=== PATIENT | male | born 1950 | race African-American/Black ===

== ENCOUNTER 2016-09-02 08:36 | Observation (INO) ==
[2016-09-02] MEDS ORDERED: DILTIAZEM 50 MG/10 ML VIAL IV STA (08:49)
[2016-09-02] MEDS ORDERED: ONDANSETRON 4 MG/2 ML VIAL IV STA (08:49)
[2016-09-02] MEDS ORDERED: ASPIRIN 325 MG TABLET PO STA (08:49)
--- NOTE | 2016-09-02 08:55 | Emergency Department Note ---
Arrival - Arrival Chief Complaint: Shortness of Breath Stated Complaint: shortness of breath ED Nursing Triage Note: Brought in per EMS from [facility] with c/o shortness of breath onset "a long time ago". Denies worsening of shortness of breath today. EKG at [facility] reveals A-FIb, patient reports he has recently forgotten to take metoprolol daily. Denies pain or palpitations. Mode of Arrival: Stretcher Limitations: No Limitations Source: Patient Time Seen by Provider: 09/02/16 08:49 - History of Present Illness HPI Narrative: This 66-year-old black male presents with complaints of a funny sensation in his left chest. The patient states that when this occurs it usually means his heart rhythm has gotten away from him and he is correct, presenting to the ER today with atrial fib with rapid ventricular response of 150. The patient is followed by Dr. Quinn and states he has been compliant with his medications; however, after awakening today and getting about he began to feel that sensation in the chest. He has mild shortness of breath and nausea but no dylon vomiting. He likewise has no specific complaint of chest pain and states he has been fine the last several days and again quite compliant with his medication. Currently despite his rhythm he has stable vitals and presents in minimal medical distress. Onset (ago): hour(s) (Patient presents 1 hour post onset of symptoms) Allergies/Adverse Reactions: Allergies Allergy/AdvReac Type Severity Reaction Status Date / Time albuterol Allergy Unknown/Unable Verified 09/02/16 08:44 to obtain finasteride [From Proscar] Allergy Unknown/Unable Verified 09/02/16 08:44 to obtain gabapentin Allergy Unknown/Unable Verified 09/02/16 08:44 to obtain Home Medications: Home Medications Medication Instructions Recorded Confirmed Type Furosemide Tab [Lasix Tab] 40 mg PO DAILY 07/01/15 09/02/16 History HYDROcodone/ACETAMIN 10-325 [[place] 1 tablet PO DAILY PRN 07/01/15 09/02/16 History 10-325] Losartan Potassium 100 mg PO DAILY 07/01/15 09/02/16 History Magnesium Oxide [Magox 400] 1,200 mg PO DAILY 07/01/15 09/02/16 History Potassium Chloride 10 meq PO DAILY 07/01/15 09/02/16 History Acetaminophen Tab [Tylenol Tab] 325 mg PO BID PRN 09/02/16 09/02/16 History Albuterol Inhaler [Proventil 2 puff INH Q4H PRN 09/02/16 09/02/16 History Inhaler] Apixaban [Eliquis] 5 mg PO BID 09/02/16 09/02/16 History Carboxymethylcellulose Sodium 1 drop BOTH EYES QID 09/02/16 09/02/16 History [Refresh Tears] Insulin Aspart Prot/Asp 70/30 45 unit SUBCUT BID 09/02/16 09/02/16 History [NovoLOG Mix 70/30] Lidocaine [Lidocaine 5% Patch] 1 patch TRANSDERM DAILY 09/02/16 09/02/16 History Magnesium Oxide 420 mg PO BEDTIME 09/02/16 09/02/16 History Magnesium Oxide 840 mg PO QAM 09/02/16 09/02/16 History Metoprolol Succinate 50 mg PO DAILY 09/02/16 09/02/16 History Pantoprazole Tab [Protonix Tab] 40 mg PO DAILY 09/02/16 09/02/16 History Pantoprazole Tab [Protonix Tab] 40 mg PO DAILY 09/02/16 09/02/16 History Polyvinyl Alcohol [Artificial 15 ml BOTH EYES QID PRN 09/02/16 09/02/16 History Tears] Triamterene/Hydrochlorothiazid 1 each PO DAILY 09/02/16 09/02/16 History [Triamterene-Hctz 37.5-25 mg Tb] dilTIAZem HCl [Diltiazem ER (24 240 mg PO DAILY 09/02/16 09/02/16 History hr)] Review of System - Review of System 12 point system: reviewed and no additional remarkable complaints except as stated - Review of System Constitutional: Present: as per HPI Respiratory: Present: as per HPI Cardiovascular: Present: as per HPI Gastrointestinal: Present: as per HPI Medical,Surgical,& Family Hx - Medical History Cardio: History of: Cardiac Dysrhythmia (A fib), CHF, CAD, Hypertension Neurology: History of: Peripheral Neuropathy HEENT: History of: Glaucoma Endocrine: History of: Diabetes Mellitus (IDDM), Dyslipidemia Respiratory: History of: COPD, Obstructive Sleep Apnea Gastrointestinal: History of: GERD, Hepatitis (C) Musculoskeletal: History of: Back/Neck Problems, Degenerative Disk Disease - Surgical History Cardiac Surgeries: Sugical HX of: Cardiac Catheterization Abdominal Surgeries: Surgical HX of: Colonoscopy, EGD - Social History Smoking Status: Former smoker Frequency of Alcohol Use: Frequently Type of Drug Use: None Exam Physical Examination: GENERAL: Well developed, well nourished black male in no acute distress. HEENT: Normocephalic. No trauma. Moist mucous membranes. EOMI. PERRLA. ENT NML NECK: Supple. No adenopathy. CARDIAC: Irregular. No murmurs. Heart rate 150 CHEST: Clear to auscultation. No respiratory distress. O2 sat 98% ABDOMEN: Soft. Minimal midepigastric tenderness. Active bowel sounds. EXTREMITIES: No trauma. Normal ROM. No pedal edema. SKIN: No diaphoresis. No rash. NEURO: Alert. Oriented 3. Motor, sensory, vibratory intact. No focal deficits. Vital Signs: Vital Signs Temperature 97.2 F L 09/02/16 08:36 Pulse Rate 95 H 09/02/16 16:00 Respiratory Rate 18 09/02/16 16:00 Blood Pressure 125/78 09/02/16 16:00 O2 Sat by Pulse Oximetry 98 09/02/16 16:00 Course - Consultations Consultation #1: Discussed with Dr. Norris who will come to the ER to evaluate the patient. Consultation #2: Dr. Norris to admit. Results - Labs CBC & BMP: 09/02/16 08:52 09/02/16 08:52 - Impressions EKG: Atrial fibrillation at 150 with normal QRS duration. Nonspecific ST changes but no acute injury pattern noted. - Diagnostic Findings Procedure: Chest x-ray: image reviewed by me, report reviewed by me ( Cardiomegaly basal atelectasis otherwise negative) Disposition Clinical Impression: Atrial fibrillation Case discussed with: patient, patient's family Disposition: Still a Patient Condition: Guarded Time of Disposition: 15:00
[2016-09-02 08:59] LABS: Basophils % 0.4 % (0.0-0.8); Eosinophils % 0.4 % (0.00-10.9); Hemoglobin 14.1 GM/DL (14.0-18.0); Immature Granulocytes % 0.3 %; Immature Granulocytes Absolute 0.03 #; Lymphocytes # 1.2 10*3/uL (1.4-4.0); Lymphocytes % 13.1 % (21.2-54.2); Mean Corpuscular HGB Conc 34.4 GM/DL (32-36); Mean Corpuscular Hemoglobin 32 PG (27-34); Mean Corpuscular Volume 92.6 FL (87-102); Monocytes # 0.6 10*3/uL (0.11-0.8); Monocytes % 6.4 % (1.7-12.7); Neutrophils # 7.4 10*3/uL (1.4-7.4); Neutrophils % 79.4 % (38.7-73.9); Platelet Count 305 T/CUMM (130-400); Red Blood Count 4.43 MC/CUMM (3.8-5.5); Red Cell Distribution Width 14.4 % (9.3-17.3); White Blood Count 9.3 T/CUMM (4-12)
[2016-09-02] MEDS ORDERED: ONDANSETRON 4 MG/2 ML VIAL ONE (09:06)
[2016-09-02] MEDS ORDERED: DILTIAZEM 50 MG/10 ML VIAL IV ONE (09:07)
[2016-09-02] MEDS ORDERED: ASPIRIN 325 MG TABLET ONE (09:07)
--- NOTE | 2016-09-02 09:08 | XRay Report ---
Referring Physician: Shyam Mcmillan Exam: XR chest 1V portable Date: September 02, 2016 at 8:55 AM Reason: Shortness of breath Comparison: Chest one view portable July 01, 2015 Findings: The cardiac silhouette is again enlarged, and there is calcified plaque at the aortic arch. Minimal atelectasis or scarring is seen at both lung bases. No pneumothorax or pleural effusion is identified. No acute osseous process is seen. There may be remote rib fractures bilaterally. Impression: 1. Cardiomegaly. 2. Minimal atelectasis or scarring at the lung bases. PROCEDURE INTERPRETED AT [facility] DEPARTMENT OF RADIOLOGY Final Report Signed by: Dr. Omkar Bonner
[2016-09-02 09:09] LABS: INR 1.1; PT Patient Result 12.2 SECS; Partial Thromboplastin Time 29.6 SECS (0-40)
--- NOTE | 2016-09-02 09:34 | EKG Report ---
Stationary ECG Study [facility] ER Test Date: 09/02/2016 8:41:36 AM Pat Name: ITZEL OKEEFE Department: Room: Gender: M Document Control Specialist: : 1950 Requested by: Shyam Schwarz Order Number: [id number] Reading MD: NATALIE STEIN Intervals [place] Rate: 139 P: 999 ND: 0 QRS: -18 QRSD: 73 T: 51 QT: 275 QTc: 356 Interpretive Statements ATRIAL FIBRILLATION WITH RAPID VENTRICULAR RESPONSE Electronically Signed On 09-04-16 15:44:53 CDT by NATALIE STEIN [email or web address]
[2016-09-02 09:42] LABS: Alanine Aminotransferase 33 U/L (16-61); Albumin 3.3 G/DL (3.4-5.0); Alkaline Phosphatase 97 U/L (45-117); Aspartate Amino Transferase 40 U/L (0-37); Blood Urea Nitrogen 23 MG/DL (7-18); Glucose 247 MG/DL (74-106); Osmolality,Calculated 292.3 MOS/KG (273-304); Sodium 141 MMOL/L (136-145); Total Protein 7.2 G/DL (6.4-8.3); Troponin I Only < 0.015 NG/ML (0.00-0.045)
[2016-09-02 09:50] LABS: Free T4 (Free Thyroxine) 0.83 NG/DL (0.76-1.46); Troponin I Only < 0.015 NG/ML (0.00-0.045)
[2016-09-02 10:58] LABS: Amorphous Crystals,Urine Occasional /HPF (Few); Apearance,Urine Slightly Hazy (Clear); Bilirubin,Urine Negative (Negative); Blood, Urine Negative (Negative); Glucose,Urine (UA) Negative (Negative); Hyaline Casts,Urine 10 /LPF (0-3); Ketones,Urine Negative (Negative); Mucus,Urine Occasional /LPF (Occasional); Nitrite,Urine Negative (Negative); Protein,Urine 30 MG/DL; RBC,Urine 2 /HPF (0-4); Squamous Epithelial Cell,Urine Occasional /HPF (0-10); Urine Color Yellow (Yellow); Urine Specific Gravity 1.009 (1.001-1.035); Urine Urobilinogen < 2.0 EU/DL (0.2-1.0); WBC,Urine 1 /HPF (0-6)
[2016-09-02 11:04] LABS: Barbiturates Screen,Urine Negative (Negative); Benzodiazepines Screen,Urine Negative (Negative); Cannabinoid Screen,Urine Negative (Negative); Opiate Screen,Urine Positive (Negative); Phencyclidine Screen,Urine Negative (Negative)
[2016-09-02] MEDS ORDERED: METOPROLOL TARTRATE 50 MG TABLET PO STA (11:25)
[2016-09-02] MEDS ORDERED: METOPROLOL TARTRATE 50 MG TABLET ONE (11:30)
[2016-09-02] MEDS ORDERED: DOCUSATE SODIUM 100 MG CAPSULE PO PRN (14:32)
[2016-09-02] MEDS ORDERED: BISACODYL 5 MG TABLET PO PRN (14:32)
[2016-09-02] MEDS ORDERED: MORPHINE 2 MG/1 ML SYRINGE IV PRN (14:32)
--- NOTE | 2016-09-02 14:32 | Cardiology History & Physical ---
Assessment and Plan - Time spent with patient Time spent with patient: Greater than 30 minutes (1) Atrial fibrillation with RVR Status: Chronic Assessment and plan: SEE PLAN OF CARE LISTED BELOW Current Visit: No (2) Diabetes mellitus Status: Chronic Assessment and plan: SEE PLAN OF CARE LISTED BELOW Current Visit: No (3) Essential (primary) hypertension Status: Chronic Assessment and plan: SEE PLAN OF CARE LISTED BELOW Current Visit: No (4) CKD (chronic kidney disease) Status: Chronic Assessment and plan: SEE PLAN OF CARE LISTED BELOW Current Visit: No Qualifiers: Chronic kidney disease stage: stage 3 (moderate) Qualified Code(s): N18.3 - Chronic kidney disease, stage 3 (moderate) (5) Alcohol abuse Status: Chronic Assessment and plan: SEE PLAN OF CARE LISTED BELOW Current Visit: No (6) Chronic back pain Status: Chronic Assessment and plan: SEE PLAN OF CARE LISTED BELOW Current Visit: No History of Present Illness Chief complaint: Atiral fibrillation with RVR History of present illness: REPAIR MILLER: DR. JAIME Mr. 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 Risk factors include: hypertension, dyslipidemia, diabetes, obesity,sedentary lifestyle, medication noncompliance. Patient drinks several shots of conrad each day. He last drank last evening. Denies a history of known coronary artery disease, PA. He has a known history of chronic atrial fibrillation for which he takes Eliquis. He tells me he continues to take Eliquis without fail Patient had an appointment to see Dr. Jaime this morning. When he began to walk across the parking lot to get to his appointment, he began to feel his heart "turning upside down" located in the left area of the chest. He denies chest pain, heaviness or tightness. He reports that when he feels that particular type of discomfort, he recognizes that his heart is out of rhythm and going too fast. He feels as if he should be evaluated in the emergency department. Upon arrival, he is noted to be in atrial fibrillation with rapid ventricular response. Heart rate highest noted to be 150s. He is maintained on IV Cardizem 7.5 mg/h and heart rate is vacillating from 80s-120 bpm. He tells me he is continuously in atrial fibrillation. As we were going through his medication bag, he recognized he is not taking Metoprolol. He is not sure why it is not in his bag but notes he has not been taking it. Cardiac biomarkers are negative. Creatinine noted to be 2.2. His has history of CKD. Chest x-ray reveals only minimal atelectasis and scarring at the bases. Of note, patient is trembling. Again, he does drink heavily. We will transition him to telemetry, wean his Cardizem off as we reinitiate his home medications. Hopefully, patient will be discharged tomorrow. Tranxene now and twice daily to prevent delirium tremens. At this point, I will not order an echocardiogram. This may be scheduled outpatient at [facility]. ASSESSMENT/PLAN: 1. CHRONIC ATRIAL FIBRILLATION - wean off IV Cardizem, restart home medications and hopefully patient will be discharged tomorrow. Continue Eliquis. 2. HYPERTENSION - adjust medications accordingly during hospital stay 3. DYSLIPIDEMIA - fasting lipid profile in the morning. Continue lipid- lowering agent. 4. DIABETES - continue current plan of care 5. ALCOHOL USE - will start Tranxene to prevent delirium tremens. Importance of alcohol cessation was discussed for greater than 5 minutes 6. CKD, STAGE III - continue current plan of care. Avoiding ARNOLD-Inhibitor for fear of worsening renal insufficiency. Home Medications Medication Instructions Recorded Confirmed Type Furosemide Tab [Lasix Tab] 40 mg PO DAILY 07/01/15 09/02/16 History HYDROcodone/ACETAMIN 10-325 [[place] 1 tablet PO DAILY PRN 07/01/15 09/02/16 History 10-325] Losartan Potassium 100 mg PO DAILY 07/01/15 09/02/16 History Magnesium Oxide [Magox 400] 1,200 mg PO DAILY 07/01/15 09/02/16 History Potassium Chloride 10 meq PO DAILY 07/01/15 09/02/16 History Acetaminophen Tab [Tylenol Tab] 325 mg PO BID PRN 09/02/16 09/02/16 History Albuterol Inhaler [Proventil 2 puff INH Q4H PRN 09/02/16 09/02/16 History Inhaler] Apixaban [Eliquis] 5 mg PO BID 09/02/16 09/02/16 History Carboxymethylcellulose Sodium 1 drop BOTH EYES QID 09/02/16 09/02/16 History [Refresh Tears] Insulin Aspart Prot/Asp 70/30 45 unit SUBCUT BID 09/02/16 09/02/16 History [NovoLOG Mix 70/30] Lidocaine [Lidocaine 5% Patch] 1 patch TRANSDERM DAILY 09/02/16 09/02/16 History Magnesium Oxide 420 mg PO BEDTIME 09/02/16 09/02/16 History Magnesium Oxide 840 mg PO QAM 09/02/16 09/02/16 History Metoprolol Succinate 50 mg PO DAILY 09/02/16 09/02/16 History Pantoprazole Tab [Protonix Tab] 40 mg PO DAILY 09/02/16 09/02/16 History Pantoprazole Tab [Protonix Tab] 40 mg PO DAILY 09/02/16 09/02/16 History Polyvinyl Alcohol [Artificial 15 ml BOTH EYES QID PRN 09/02/16 09/02/16 History Tears] Triamterene/Hydrochlorothiazid 1 each PO DAILY 09/02/16 09/02/16 History [Triamterene-Hctz 37.5-25 mg Tb] dilTIAZem HCl [Diltiazem ER (24 240 mg PO DAILY 09/02/16 09/02/16 History hr)] Allergies Allergy/AdvReac Type Severity Reaction Status Date / Time albuterol Allergy Unknown/Unable Verified 09/02/16 08:44 to obtain finasteride [From Proscar] Allergy Unknown/Unable Verified 09/02/16 08:44 to obtain gabapentin Allergy Unknown/Unable Verified 09/02/16 08:44 to obtain Review of systems: REVIEW OF SYSTEMS: - Constitutional Constitutional: Absent: syncope, anorexia, night sweats - EENT Eyes: Absent: blurry vision, loss of vision, diplopia Ears: Absent: decreased hearing, ear pain, ear discharge - Cardiovascular Cardiovascular: Denies chest pain with exertion, dyspnea on exertion, edema. Occasional palpitations. Absent: chest pain with deep breath, claudication - Respiratory Respiratory: Denies: ALFARO, cough. Absent: wheezing, hemoptysis, change in phlegm color - Gastrointestinal Gastrointestinal: Denies constipation. Absent: adbominal pain, hematemesis, hematochezia, melena, change in bowel habits, nausea - Genitourinary Genitourinary: Absent: difficulty urinating, dysuria, urinary hesitancy, flank pain - Musculoskeletal Musculoskeletal: Present: back pain Absent: joint swelling, muscle cramps, muscle weakness - Neurological Neurological: Present: normal gait without frequent falls. Absent: dizziness, hemiparesis - Psychiatric Psychiatric: Absent: anxiety, depression, difficulty concentrating - Endocrine Endocrine: Absent: cold intolerance, heat intolerance, polyuria, polyphagia, polydipsia - Hematologic/Lymphatic Hematologic/Lymphatic: Present: easy bruising. Absent: easy bleeding -Integumentary Integumentary: Absent: lesions, rashes, skin breakdown Medical,Surgical,& Family Hx - Medical History Cardio: History of: Cardiac Dysrhythmia (A fib), CHF, CAD, Hypertension Neurology: History of: Peripheral Neuropathy HEENT: History of: Glaucoma Endocrine: History of: Diabetes Mellitus (IDDM), Dyslipidemia Respiratory: History of: COPD, Obstructive Sleep Apnea Gastrointestinal: History of: GERD, Hepatitis (C) Musculoskeletal: History of: Back/Neck Problems, Degenerative Disk Disease - Surgical History Cardiac Surgeries: Sugical HX of: Cardiac Catheterization Abdominal Surgeries: Surgical HX of: Colonoscopy, EGD - Social History Smoking Status: Former smoker Frequency of Alcohol Use: Frequently Type of Drug Use: None Cardiology Physical Exam - Constitutional Vitals: Vital Signs Temp Pulse Resp BP Pulse Ox 97.2 F L 83 18 139/97 100 09/02/16 08:36 09/02/16 13:30 09/02/16 13:30 09/02/16 13:30 09/02/16 13:30 Intake and Output 09/01/16 09/02/16 09/02/16 23:59 07:59 15:59 Intake Total 4 / 4 Output Total 100 / 100 Balance -96 / -96 Intake: IV / Cardizem Inj 125 mg In Ns 100 ml @ 5 MG/HR 5 mls/ hr IV TITRATE CORRY Rx#: [id number] Output: Urine 100 / 100 Other: Voiding Method Urinal # Voids 1 Weight 97.522 kg Patient Weight 09/02/16 23:59 Weight 97.522 kg Exam: General: [Appears well with no apparent distress.] [Pleasant and cooperative. ] [Appears comfortable.] HEENT: [Bilateral arcus noted, normocephalic, atraumatic. Mucous membranes moist. No jaundice noted. Conjunctiva moist and clear, sclerae anicteric] Neck: No JVD/HJR, no thyromegaly or lymphadenopathy noted. No carotid bruit appreciated Cardiac: [Irregularly irregular rhythm, tachycardia rate. [No murmur rub or gallop.] Lungs: [Clear to auscultation without accessory muscle use to assist the respiratory pattern.] Not requiring oxygen Abdomen: Soft, bowel sounds normoactive. Nontender and nondistended. No abdominal bruit or thrill noted. No masses noted. Musculoskeletal: No fluid collection. Decreased range of motion is noted. Extremities: No clubbing, cyanosis noted. [ No edema noted.] Upper extremity pulses 2+. Lower extremity pulses 2+. Capillary refill less than 3 seconds. Skin: No unusual lesions or rashes. No skin breakdown appreciated. Neuro: Awake, alert and oriented 3. Moves all extremities well without hemiparesis or paralysis. Trembling of hands noted. Result/EKG - Labs CBC & BMP: 09/02/16 08:52 09/02/16 08:52 Lab Results: I have reviewed the past 24 hour labs Labs: Laboratory Results - last 24 hr 09/02/16 09/02/16 09/02/16 08:52 08:52 08:52 WBC 9.3 RBC 4.43 Hgb 14.1 Hct 41.0 L MCV 92.6 MCH 32 MCHC 34.4 RDW 14.4 Plt Count 305 MPV 9.0 L Neut % (Auto) 79.4 H Lymph % (Auto) 13.1 L [place] % (Auto) 6.4 Eos % (Auto) 0.4 Baso % (Auto) 0.4 Neut # (Auto) 7.4 Lymph # (Auto) 1.2 L [place] # (Auto) 0.6 Eos # (Auto) 0.0 Baso # (Auto) 0.0 Immature Gran % 0.3 Nucleated RBC % 0.0 Immature Gran # 0.03 Nucleated RBCs # 0.00 INR 1.1 PT Patient/Control Mix 12.2 Circ Anticoag PTT 29.6 Sodium Potassium Chloride Carbon Dioxide Anion Gap BUN Creatinine GFR Calculation BUN/Creatinine Ratio Glucose Calculated Osmolality Calcium Total Bilirubin AST ALT Alkaline Phosphatase Total Creatine Kinase 121 CK-MB (CK-2) 2.3 Troponin I < 0.015 Total Protein Albumin Globulin Albumin/Globulin Ratio Free T4 0.83 TSH 3rd Generation Urine Color Urine Appearance Urine pH Ur Specific [place] Urine Protein Urine Glucose (UA) Urine Ketones Urine Blood Urine Nitrate Urine Bilirubin Urine Urobilinogen Urine Leukocytes Urine RBC Urine WBC Ur Squamous Epith Cells Amorphous Crystals Hyaline Casts Urine Mucus Ur Culture Indicated? Urine Opiates Screen Ur Barbiturates Screen Ur Phencyclidine Scrn U Amphetamine/Methamph U Benzodiazepines Scrn U Cocaine Metab Screen U Cannabinoids Screen 09/02/16 09/02/16 09/02/16 08:52 10:46 10:46 WBC RBC Hgb Hct MCV MCH MCHC RDW Plt Count MPV Neut % (Auto) Lymph % (Auto) [place] % (Auto) Eos % (Auto) Baso % (Auto) Neut # (Auto) Lymph # (Auto) [place] # (Auto) Eos # (Auto) Baso # (Auto) Immature Gran % Nucleated RBC % Immature Gran # Nucleated RBCs # INR PT Patient/Control Mix Circ Anticoag PTT Sodium 141 Potassium 4.0 Chloride 107 Carbon Dioxide 23 Anion Gap 15.0 BUN 23 H Creatinine 2.20 H GFR Calculation 44 BUN/Creatinine Ratio 10.00 Glucose 247 H Calculated Osmolality 292.3 Calcium 9.0 Total Bilirubin 0.40 AST 40 H ALT 33 Alkaline Phosphatase 97 Total Creatine Kinase CK-MB (CK-2) Troponin I < 0.015 Total Protein 7.2 Albumin 3.3 L Globulin 3.9 H Albumin/Globulin Ratio 0.8 L Free T4 TSH 3rd Generation 1.270 Urine Color Yellow Urine Appearance Slightly hazy Urine pH 6.0 Ur Specific [place] 1.009 Urine Protein 30 Urine Glucose (UA) Negative Urine Ketones Negative Urine Blood Negative Urine Nitrate Negative Urine Bilirubin Negative Urine Urobilinogen < 2.0 H Urine Leukocytes Negative Urine RBC 2 Urine WBC 1 Ur Squamous Epith Cells Occasional Amorphous Crystals Occasional Hyaline Casts 10 Urine Mucus Occasional Ur Culture Indicated? Not indicated Urine Opiates Screen Positive H Ur Barbiturates Screen Negative Ur Phencyclidine Scrn Negative U Amphetamine/Methamph Negative U Benzodiazepines Scrn Negative U Cocaine Metab Screen Negative U Cannabinoids Screen Negative - Diagnostic Findings Procedure: Chest x-ray: report reviewed by me - EKG EKG results: interpreted by me EKG shows: atrial fibrillation (RVR)
[2016-09-02] MEDS ORDERED: DEXTROSE 50% 25 GM/50 ML VIAL IV PRN (14:34)
[2016-09-02] MEDS ORDERED: GLUCAGON 1 MG VIAL IM PRN (14:34)
[2016-09-02] MEDS ORDERED: MAGNESIUM SULF RIDER 4 GM in PREMIX 1 EACH IV PRN (14:34)
[2016-09-02] MEDS ORDERED: MAGNESIUM SULF RIDER 2 GM in PREMIX 1 EACH IV PRN (14:34)
[2016-09-02] MEDS ORDERED: ACETAMINOPHEN 325 MG TABLET PO PRN (14:38)
[2016-09-02] MEDS ORDERED: POLYVINYL ALCOHOL 1.4% OPH SOLN 15 ML BOTTLE BOTH EYES PRN (14:38)
[2016-09-02] MEDS ORDERED: CLORAZEPATE 7.5 MG TABLET PO STA (14:40)
[2016-09-02] MEDS ORDERED: SODIUM CHLORIDE 0.45% 1,000 ML IV SCH (15:00)
[2016-09-02 16:19] LABS: Troponin I Only < 0.015 NG/ML (0.00-0.045)
[2016-09-02] MEDS: METOPROLOL TARTRATE 25 MG TABLET PO SCH ×2 (17:45→21:15)
[2016-09-02] MEDS: PANTOPRAZOLE 40 MG TABLET PO SCH (17:48)
[2016-09-02] MEDS: LIDOCAINE 5% PATCH TRANSDERM SCH (17:48)
[2016-09-02] MEDS: DILTIAZEM CD 240 MG CAPSULE PO SCH (17:49)
[2016-09-02] MEDS ORDERED: ALBUTEROL 2.5 MG/3 ML NEB RESP TX PRN (19:00)
[2016-09-02] MEDS ORDERED: THIAMINE INJ 100 MG, FOLIC ACID INJ 1 MG, MULTIVITAMIN INJ 10 ML in DEXTROSE 5% NACL 0.... IV ONE (20:20)
[2016-09-02] MEDS ORDERED: MAGNESIUM SULF RIDER 2 GM in PREMIX 1 EACH IV ONE (20:21)
[2016-09-02] MEDS ORDERED: CLORAZEPATE 7.5 MG TABLET PO SCH (21:00)
[2016-09-02] MEDS: APIXABAN 5 MG TABLET PO SCH (21:15)
[2016-09-02] MEDS: CLORAZEPATE 7.5 MG TABLET PO PRN (21:15)
[2016-09-02] MEDS: INSULIN ASPART PROTAMINE/ASPART 70/30 100 UNIT/ML SUBCUT SCH (21:25)
[2016-09-02 23:33] LABS: Troponin I Only < 0.015 NG/ML (0.00-0.045)
[2016-09-03 05:56] LABS: Basophils # 0.1 10*3/uL (0.0-0.2); Basophils % 0.7 % (0.0-0.8); Eosinophils # 0.3 10*3/uL (0.0-0.87); Eosinophils % 3.5 % (0.00-10.9); Hematocrit 37.1 VOL% (42.0-52.0); Hemoglobin 12.4 GM/DL (14.0-18.0); Immature Granulocytes % 0.7 %; Immature Granulocytes Absolute 0.06 #; Lymphocytes # 2.3 10*3/uL (1.4-4.0); Lymphocytes % 26.2 % (21.2-54.2); Mean Corpuscular HGB Conc 33.4 GM/DL (32-36); Mean Corpuscular Hemoglobin 31 PG (27-34); Mean Corpuscular Volume 93.9 FL (87-102); Mean Platelet Volume 9.8 FL (9.6-12.0); Monocytes # 0.6 10*3/uL (0.11-0.8); Monocytes % 6.2 % (1.7-12.7); Neutrophils # 5.6 10*3/uL (1.4-7.4); Neutrophils % 62.7 % (38.7-73.9); Platelet Count 270 T/CUMM (130-400); Red Blood Count 3.95 MC/CUMM (3.8-5.5); Red Cell Distribution Width 14.5 % (9.3-17.3); White Blood Count 8.9 T/CUMM (4-12)
[2016-09-03 06:18] LABS: Calcium 8.8 MG/DL (8.5-10.1); Magnesium 1.6 MG/DL (1.8-2.4); Osmolality,Calculated 287.7 MOS/KG (273-304); Potassium 4.4 MMOL/L (3.5-5.1)
[2016-09-03 06:22] LABS: Bilirubin,Total 0.7 MG/DL (0.2-1.0); Calcium 8.6 MG/DL (8.5-10.1); Osmolality,Calculated 290.5 MOS/KG (273-304); Potassium 4.5 MMOL/L (3.5-5.1); Total Protein 6.5 G/DL (6.4-8.3)
[2016-09-03 06:23] LABS: Risk Ratio 1.7
[2016-09-03 08:38] LABS: Troponin I Only < 0.015 NG/ML (0.00-0.045)
--- NOTE | 2016-09-03 09:00 | EKG Report ---
Stationary ECG Study [facility] Test Date: 09/03/2016 8:59:20 AM Pat Name: ITZEL OKEEFE Department: Room: 295 Gender: M Assistant Superintendent: GASTON : 1950 Requested by: Lindsay Stafford Order Number: [id number] Reading MD: NATALIE STEIN Intervals [place] Rate: 73 P: 999 NM: 0 QRS: -5 QRSD: 77 T: 31 QT: 397 QTc: 424 Interpretive Statements ATRIAL FIBRILLATION Electronically Signed On 09-04-16 16:47:02 CDT by NATALIE STEIN [email or web address]
[2016-09-03] MEDS: PANTOPRAZOLE 40 MG TABLET PO SCH (09:10)
[2016-09-03] MEDS: MAGNESIUM OXIDE 400 MG TABLET PO SCH (09:10)
[2016-09-03] MEDS: DILTIAZEM CD 240 MG CAPSULE PO SCH (09:10)
[2016-09-03] MEDS: METOPROLOL TARTRATE 25 MG TABLET PO SCH (09:11)
[2016-09-03] MEDS: FUROSEMIDE 40 MG TABLET PO SCH (09:11)
[2016-09-03] MEDS: APIXABAN 5 MG TABLET PO SCH ×2 (09:11→22:08)
[2016-09-03] MEDS: POTASSIUM CHLORIDE 10 MEQ TABLET PO SCH (09:11)
[2016-09-03] MEDS: INSULIN ASPART PROTAMINE/ASPART 70/30 100 UNIT/ML SUBCUT SCH ×3 (09:18→22:08)
[2016-09-03] MEDS: LIDOCAINE 5% PATCH TRANSDERM SCH (09:19)
--- NOTE | 2016-09-03 13:48 | ECHO Report ---
Andrez Woods Exam Date: 09/03/2016 09:07 Referring Physician: Technologist: Ashley Cooper Age: 66 Ht (in): 71 Wt (lb): 215 Gender: M Exam Location: [facility] Echo Indications: HTN, Diabetes, CKD, A FIB BP: 119 / 75 HR: 70 Rhythm: Sinus Technical Quality: IMPRESSIONS Normal left ventricular size, with mild concentric hypertrophy, with normal systolic function. Estimated left ventricular ejection fraction 55%. Moderately dilated right-sided heart chambers, with moderate tricuspid insufficiency, with mild pulmonary hypertension. Mild mitral regurgitation. Mild aortic valve sclerosis, with mild insufficiency, without stenosis. MEASUREMENTS (Male / Female) Normal Values 2D ECHO LV Diastolic Diameter PLAX 4.7 cm 4.2 - 5.9 / 3.9 - 5.3 cm LV Systolic Diameter PLAX 3.0 cm LV Fractional Shortening PLAX 35.7 % IVS Diastolic Thickness 1.5 cm 0.6 - 1.0 / 0.6 - 0.9 cm LVPW Diastolic Thickness 1.3 cm 0.6 - 1.0 / 0.6 - 0.9 cm RV Internal Dim ED PLAX 2.8 cm Aortic Root Diameter 3.0 cm LA Systolic Diameter LX 4.1 cm 3.0 - 4.0 / 2.7 - 3.8 cm DOPPLER TR Peak Velocity 299.0 cm/s TR Peak Gradient 35.8 mmHg FINDINGS Left Ventricle Normal left ventricular size, with mild concentric hypertrophy, with normal systolic function. Estimated left ventricular ejection fraction 55%. Unable to estimate diastolic function due to arrhythmia. Right Ventricle The right ventricle is moderately dilated, with normal systolic function. Right Atrium Moderately dilated right atrium. Left Atrium Mildly increased left atrial diameter. Mitral Valve Structurally normal mitral valve, with mild regurgitation. Aortic Valve Mild aortic valve sclerosis, with mild insufficiency, without stenosis. Tricuspid Valve Morphologically normal tricuspid valve. Moderate tricuspid valve regurgitation. Tricuspid regurgitation velocities suggest a PAP of 46 mmHg. Pulmonic Valve Morphologically normal pulmonic valve. Trace pulmonary valve regurgitation. Pericardium No pericardial effusion. Aorta Normal size aortic root and proximal ascending aorta. Emmanuel Quinn (Electronically Signed) Final Date: 03 Sep 2016 13:46
--- NOTE | 2016-09-03 13:51 | Cardiology Progress Note ---
Assessment and Plan (1) Atrial fibrillation with RVR Status: Chronic Assessment and plan: 66-year-old male, with EtOH abuse, with recent onset, symptomatic atrial fibrillation, RVR. Type 2 diabetes mellitus, hypertension, mild chronic kidney disease, hyperlipidemia. -A. fib/RVR. Rate better controlled. Continue p.o. Cardizem, start metoprolol 25 mg twice daily. -Continue anticoagulate him with Eliquis. PPI. -TFTs were normal -Echo shows significant right sided remodeling. I suspect he has sleep apnea. Will need sleep evaluation, may be pursued as an outpatient. -EtOH. Tranxene as needed for anxiety. Continue intensive electrolyte repletion. Discussed importance of abstinence. -Acute kidney injury on CKD. Creatinine increased today. I suspect recent injury due to A. fib/RVR, hypoperfusion. If not resolving, will obtain renal consult. -Decrease Lasix to 40 mg daily. Edema improved. -Keep on telemetry. -Continue statin for hyperlipidemia -If stable, plan for discharge tomorrow Current Visit: No (2) Diabetes mellitus Status: Chronic Current Visit: No (3) Essential (primary) hypertension Status: Chronic Current Visit: No (4) Acute on chronic renal failure Status: Chronic Current Visit: No (5) Alcohol abuse Status: Chronic Current Visit: No (6) Obesity Status: Chronic Current Visit: No (7) Chronic back pain Status: Chronic Current Visit: No Cardiology - PN: Subj Interval history: He is feeling better. Still in atrial fibrillation, rate better controlled. Blood pressure normal. Transient improved anxiety. Exam (Progress Note) - Constitutional Vitals: Period Temp Pulse Resp BP Sys/Martinez Pulse Ox Last 24 Hr 96.5 F-98.6 F 70-134 16-20 100-160/65-94 94-100 General appearance: normal weight, over weight - Head Head exam: Present: normal inspection, normocephalic - Eye Eye exam: Absent: conjunctival injection Pupils: Absent: dilated - ENT ENT exam: Present: normal external ear exam - Neck Neck exam: Present: normal inspection - Respiratory Respiratory exam: Present: clear to auscultation bilaterally - Cardiovascular Cardiovascular exam: Present: irregular rhythm, systolic murmur, tachycardia - GI/Abdominal GI/Abdominal exam: Present: normal bowel sounds, distended. Absent: firm, guarding - Extremities Exam Extremities exam: Present: normal inspection, normal capillary refill, edema (1+ ) - Back Exam Back exam: Present: normal inspection - Neurological Exam Neurological exam: Present: alert, oriented X3 - Psychiatric Psychiatric exam: Present: normal affect, normal mood - Skin Skin exam: Present: normal color, warm. Absent: cyanosis Result/EKG - Labs CBC & BMP: 09/03/16 05:20 09/03/16 05:20 Lab Results: I have reviewed the past 24 hour labs Labs: Laboratory Results - last 24 hr 09/02/16 09/02/16 09/02/16 15:42 19:54 22:40 WBC RBC Hgb Hct MCV MCH MCHC RDW Plt Count MPV Neut % (Auto) Lymph % (Auto) [place] % (Auto) Eos % (Auto) Baso % (Auto) Neut # (Auto) Lymph # (Auto) [place] # (Auto) Eos # (Auto) Baso # (Auto) Immature Gran % Nucleated RBC % Immature Gran # Nucleated RBCs # Sodium Potassium Chloride Carbon Dioxide Anion Gap BUN Creatinine GFR Calculation BUN/Creatinine Ratio Glucose POC Glucose 254 H Calculated Osmolality Calcium Magnesium Total Bilirubin AST ALT Alkaline Phosphatase Total Creatine Kinase 112 92 CK-MB (CK-2) 1.8 1.9 Troponin I < 0.015 < 0.015 Total Protein Albumin Globulin Albumin/Globulin Ratio Triglycerides Cholesterol LDL Cholesterol VLDL Cholesterol HDL Cholesterol Heart Disease Risk Ratio 09/03/16 09/03/16 09/03/16 05:20 05:20 05:20 WBC 8.9 RBC 3.95 Hgb 12.4 L Hct 37.1 L MCV 93.9 MCH 31 MCHC 33.4 RDW 14.5 Plt Count 270 MPV 9.8 Neut % (Auto) 62.7 Lymph % (Auto) 26.2 [place] % (Auto) 6.2 Eos % (Auto) 3.5 Baso % (Auto) 0.7 Neut # (Auto) 5.6 Lymph # (Auto) 2.3 [place] # (Auto) 0.6 Eos # (Auto) 0.3 Baso # (Auto) 0.1 Immature Gran % 0.7 Nucleated RBC % 0.0 Immature Gran # 0.06 Nucleated RBCs # 0.00 Sodium 139 138 Potassium 4.5 4.4 Chloride 104 103 Carbon Dioxide 23 24 Anion Gap 16.5 H 15.4 H BUN 26 H 25 H Creatinine 2.80 H 2.80 H GFR Calculation 33 33 BUN/Creatinine Ratio 9.00 8.00 Glucose 257 H 252 H POC Glucose Calculated Osmolality 290.5 287.7 Calcium 8.6 8.8 Magnesium 1.6 L Total Bilirubin 0.70 AST 28 ALT 25 Alkaline Phosphatase 84 Total Creatine Kinase CK-MB (CK-2) Troponin I Total Protein 6.5 Albumin 3.0 L Globulin 3.5 Albumin/Globulin Ratio 0.8 L Triglycerides 90 Cholesterol 151 LDL Cholesterol 67.0 VLDL Cholesterol 18.0 HDL Cholesterol 89 H Heart Disease Risk Ratio 1.70 09/03/16 07:08 WBC RBC Hgb Hct MCV MCH MCHC RDW Plt Count MPV Neut % (Auto) Lymph % (Auto) [place] % (Auto) Eos % (Auto) Baso % (Auto) Neut # (Auto) Lymph # (Auto) [place] # (Auto) Eos # (Auto) Baso # (Auto) Immature Gran % Nucleated RBC % Immature Gran # Nucleated RBCs # Sodium Potassium Chloride Carbon Dioxide Anion Gap BUN Creatinine GFR Calculation BUN/Creatinine Ratio Glucose POC Glucose Calculated Osmolality Calcium Magnesium Total Bilirubin AST ALT Alkaline Phosphatase Total Creatine Kinase 88 CK-MB (CK-2) 1.4 Troponin I < 0.015 Total Protein Albumin Globulin Albumin/Globulin Ratio Triglycerides Cholesterol LDL Cholesterol VLDL Cholesterol HDL Cholesterol Heart Disease Risk Ratio - EKG EKG results: interpreted by me
[2016-09-03] MEDS: MULTIVITAMIN (BEROCCA) TABLET PO SCH (15:23)
[2016-09-03] MEDS: METOPROLOL TARTRATE 50 MG TABLET PO SCH (22:06)
[2016-09-03] MEDS: CLORAZEPATE 7.5 MG TABLET PO PRN (22:08)
[2016-09-04 04:12] LABS: Basophils % 0.4 % (0.0-0.8); Eosinophils # 0.3 10*3/uL (0.0-0.87); Eosinophils % 3.5 % (0.00-10.9); Hematocrit 35.5 VOL% (42.0-52.0); Hemoglobin 11.8 GM/DL (14.0-18.0); Immature Granulocytes % 0.6 %; Immature Granulocytes Absolute 0.06 #; Lymphocytes # 1.3 10*3/uL (1.4-4.0); Lymphocytes % 14.3 % (21.2-54.2); Mean Corpuscular HGB Conc 33.2 GM/DL (32-36); Mean Corpuscular Hemoglobin 32 PG (27-34); Mean Corpuscular Volume 96.7 FL (87-102); Mean Platelet Volume 9.8 FL (9.6-12.0); Monocytes # 0.6 10*3/uL (0.11-0.8); Monocytes % 6.1 % (1.7-12.7); Neutrophils % 75.1 % (38.7-73.9); Platelet Count 261 T/CUMM (130-400); Red Blood Count 3.67 MC/CUMM (3.8-5.5); Red Cell Distribution Width 14.3 % (9.3-17.3); White Blood Count 9.3 T/CUMM (4-12)
[2016-09-04 04:39] LABS: Osmolality,Calculated 286.4 MOS/KG (273-304); Potassium 4.5 MMOL/L (3.5-5.1)
[2016-09-04 08:14] VITALS: BP 116/69
[2016-09-04] MEDS: MAGNESIUM OXIDE 400 MG TABLET PO SCH (08:47)
[2016-09-04] MEDS: DILTIAZEM CD 240 MG CAPSULE PO SCH (08:47)
[2016-09-04] MEDS: LIDOCAINE 5% PATCH TRANSDERM SCH (08:47)
[2016-09-04] MEDS: METOPROLOL TARTRATE 50 MG TABLET PO SCH (08:47)
[2016-09-04] MEDS: POTASSIUM CHLORIDE 10 MEQ TABLET PO SCH (08:47)
[2016-09-04] MEDS: FUROSEMIDE 40 MG TABLET PO SCH (08:47)
[2016-09-04] MEDS: MULTIVITAMIN (BEROCCA) TABLET PO SCH (08:47)
[2016-09-04] MEDS: APIXABAN 5 MG TABLET PO SCH (08:47)
[2016-09-04] MEDS: INSULIN ASPART PROTAMINE/ASPART 70/30 100 UNIT/ML SUBCUT SCH (08:47)
[2016-09-04] MEDS: PANTOPRAZOLE 40 MG TABLET PO SCH (08:47)
[2016-09-04] MEDS ORDERED: INSULIN ASPART PROTAMINE/ASPART 70/30 100 UNIT/ML SUBCUT SCH (11:41)
--- NOTE | 2016-09-04 11:47 | Discharge Summary ---
Hospital Course - Hospital Course Hospital Course: Mr. Woods is a 66-year-old black male, with history of alcohol abuse, hypertension hyperlipidemia mild chronic kidney disease, type 2 diabetes mellitus, on insulin. He was in the process to establish cardiology care with Dr. Lopez, but was admitted due to atrial fibrillation, RVR, CHF. His rate control was initiated with IV Cardizem, which was then transitioned to p.o. He became asymptomatic, with better rate control and gentle diuresis. He has a significant history of alcohol abuse, his anxiety was controlled with Tranxene. -He will be discharged home today, follow-up with Dr. Lopez, in 2 weeks. Recheck BMP/magnesium. -Continue high-dose magnesium supplementation. His electrolytes were low on admission. His magnesium supplementation was recently decreased, prior to this admission. -We will continue vitamins. His diet seems to be poor and he consumes large amounts of alcohol. We discussed options for rehab. -Anxiety. This improved with Tranxene. We will continue with a lower dose prn , he was advised not to drink at the same time. -He has severe obstructive sleep apnea, has a CPAP device, which she was not using for a long time. He was advised to restart. Echo showed normal systolic function, but dilated right-sided heart chambers. -Anticoagulation was started with Eliquis. No bleeding issues so far. On a PPI. -Blood pressure was well controlled during this hospital stay. -Type 2 diabetes mellitus. He is on twice daily insulin. At baseline, his blood sugars were running in the 100s, low 200s range. He had an episode of symptomatic hypoglycemia. We will decrease the insulin mix from 45 to 40 units twice daily. He will need to follow-up with his primary care physician. Diagnosis - Discharge Diagnosis (1) Atrial fibrillation with RVR Status: Chronic (2) Diabetes mellitus Status: Chronic (3) Essential (primary) hypertension Status: Chronic (4) Acute on chronic renal failure Status: Chronic (5) Alcohol abuse Status: Chronic (6) Obesity Status: Chronic (7) Chronic back pain Status: Chronic Discharge Plan - Discharge Data Disposition: Disch To Home/Self Care Condition at Discharge: Stable Discharge Diet: advance to your usual diet Activity: resume usual activities as tolerated Hygiene: no restrictions Weight Bearing at Discharge: full weight bearing Driving: no restrictions Contact your physician if you experience:: fever over 101, Difficulty voiding, Redness or swelling, Nausea/Vomiting, Shortness of breath, Bleeding, pain uncontrolled by pain medications Wound / Dressing Care Instructions: Wear the CPAP every night - Discharge Medications New Clorazepate [Tranxene] 3.725 mg PO Q8H PRN #20 tablet PRN Reason: Anxiety Metoprolol Tartrate Tab [Lopressor Tab] 50 mg PO BID #180 tablet Multivitamin (Berocca) [Berocca] 1 tablet PO DAILY #90 tablet Insulin Aspart Prot/Asp 70/30 [NovoLOG Mix 70/30] 40 unit SUBCUT BID #0 unit Continue Potassium Chloride 10 meq PO DAILY Losartan Potassium 100 mg PO DAILY HYDROcodone/ACETAMIN 10-325 [[place] 10-325] 1 tablet PO DAILY PRN PRN Reason: Pain Furosemide Tab [Lasix Tab] 40 mg PO DAILY Lidocaine [Lidocaine 5% Patch] 1 patch TRANSDERM DAILY Polyvinyl Alcohol [Artificial Tears] 15 ml BOTH EYES QID PRN PRN Reason: Dry Eyes dilTIAZem HCl [Diltiazem ER (24 hr)] 240 mg PO DAILY Albuterol Inhaler [Proventil Inhaler] 2 puff INH Q4H PRN PRN Reason: Shortness Of Breath/Wheezing Acetaminophen Tab [Tylenol Tab] 325 mg PO BID PRN PRN Reason: Pain Apixaban [Eliquis] 5 mg PO BID #180 Triamterene/Hydrochlorothiazid [Triamterene-Hctz 37.5-25 mg Tb] 1 each PO DAILY Pantoprazole Tab [Protonix Tab] 40 mg PO DAILY Carboxymethylcellulose Sodium [Refresh Tears] 1 drop BOTH EYES QID Changed Magnesium Oxide [Magox 400] 800 mg PO BID #180 Discontinued Magnesium Oxide 420 mg PO BEDTIME Metoprolol Succinate 50 mg PO DAILY Magnesium Oxide 840 mg PO QAM Insulin Aspart Prot/Asp 70/30 [NovoLOG Mix 70/30] 45 unit SUBCUT BID Pantoprazole Tab [Protonix Tab] 40 mg PO DAILY - Follow Up or Referral Follow Up: Joshua Lopez MD [Physician] - 2 Weeks (Follow up with dr. Lopez in 2 weeks, with BMP/Mg, EKG Follow up with PCP in 2 weeks on diabetes) - Forms/Instructions Exam - Constitutional Vitals: Period Temp Pulse Resp BP Sys/Martinez Pulse Ox Last 24 Hr 96.9 F-98.3 F 65-91 18-20 105-124/65-78 92-98 General appearance: normal weight, over weight - Head Head exam: Present: normal inspection, normocephalic - Eye Eye exam: Absent: conjunctival injection Pupils: Absent: dilated, fixed - ENT ENT exam: Present: normal external ear exam - Neck Neck exam: Present: normal inspection - Respiratory Respiratory exam: Present: clear to auscultation bilaterally - Cardiovascular Cardiovascular exam: Present: irregular rhythm - GI/Abdominal GI/Abdominal exam: Present: normal bowel sounds - Extremities Exam Extremities exam: Present: normal inspection, normal capillary refill. Absent: edema - Back Exam Back exam: Present: normal inspection - Neurological Exam Neurological exam: Present: alert, oriented X3 - Psychiatric Psychiatric exam: Present: normal affect, normal mood - Skin Skin exam: Present: normal color, warm. Absent: cyanosis Discharge Results Procedures and tests throughout hospitalization: Pending Orders 09/05/16 04:00 Comp Blood Count Auto Diff IN AM Labs on day of discharge: Labs from last 24 hours 09/04/16 09/04/16 09/03/16 03:21 03:21 23:42 WBC 9.3 RBC 3.67 L Hgb 11.8 L Hct 35.5 L MCV 96.7 MCH 32 MCHC 33.2 RDW 14.3 Plt Count 261 MPV 9.8 Neut % (Auto) 75.1 H Lymph % (Auto) 14.3 L [place] % (Auto) 6.1 Eos % (Auto) 3.5 Baso % (Auto) 0.4 Neut # (Auto) 7.0 Lymph # (Auto) 1.3 L [place] # (Auto) 0.6 Eos # (Auto) 0.3 Baso # (Auto) 0.0 Immature Gran % 0.6 Nucleated RBC % 0.0 Immature Gran # 0.06 Nucleated RBCs # 0.00 Sodium 140 Potassium 4.5 Chloride 104 Carbon Dioxide 26 Anion Gap 14.5 BUN 31 H Creatinine 2.90 H GFR Calculation 31 BUN/Creatinine Ratio 10.00 Glucose 117 H POC Glucose 101 Calculated Osmolality 286.4 Calcium 9.0 Magnesium 2.0 09/03/16 09/03/16 09/03/16 23:20 23:15 23:04 WBC RBC Hgb Hct MCV MCH MCHC RDW Plt Count MPV Neut % (Auto) Lymph % (Auto) [place] % (Auto) Eos % (Auto) Baso % (Auto) Neut # (Auto) Lymph # (Auto) [place] # (Auto) Eos # (Auto) Baso # (Auto) Immature Gran % Nucleated RBC % Immature Gran # Nucleated RBCs # Sodium Potassium Chloride Carbon Dioxide Anion Gap BUN Creatinine GFR Calculation BUN/Creatinine Ratio Glucose POC Glucose 38 L* 32 L* 35 L* Calculated Osmolality Calcium Magnesium 09/03/16 09/03/16 09/03/16 15:18 12:20 08:24 WBC RBC Hgb Hct MCV MCH MCHC RDW Plt Count MPV Neut % (Auto) Lymph % (Auto) [place] % (Auto) Eos % (Auto) Baso % (Auto) Neut # (Auto) Lymph # (Auto) [place] # (Auto) Eos # (Auto) Baso # (Auto) Immature Gran % Nucleated RBC % Immature Gran # Nucleated RBCs # Sodium Potassium Chloride Carbon Dioxide Anion Gap BUN Creatinine GFR Calculation BUN/Creatinine Ratio Glucose POC Glucose 228 H 246 H 279 H Calculated Osmolality Calcium Magnesium - Imaging and Cardiology Cardiology Procedure: image reviewed by me, report reviewed by me DS: Provider Date of admission: 09/02/16 14:32 Primary care physician: Wellington Braga Attending physician on admission: Emmanuel Quinn MD Consults: 09/02/16 17:22 Consult to Dietitian [CONS] Routine Reason for Dietitian: Dietary Consult Discharging clinician: Emmanuel Quinn MD Expected date of discharge: 09/04/16
--- NOTE | 2016-09-07 13:22 | Event Note ---
We received notice today from Mr. Woods's that [facility] [place]. However[facility]. Dr[place] Quinn [place] the [place]. I will hand write Mr. 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 Will be unable to write for his Tranxene since I do not have a SONIA. She will have to obtain this from his primary care provider. She will be given prescriptions for the following: Eliquis 5 mg p.o. twice daily, #180, no refills Magnesium oxide 800 mg p.o. twice daily, #180, no refills Metoprolol tartrate 50 mg p.o. twice daily, #180, no refills Multivitamin 1 tablet p.o. daily, #90, no refills He will be instructed to call the clinic prior to running out of these medications for additional refills.
== END 2016-09-04 12:24 | disposition home or self-care (01) ==
LOC: EDBD → EDUNIT# → N.ED 08:36 → N.EDINP 08:36 → N.TELEN 17:00
PROVIDERS: ADMIT Internal Medicine Clinical Cardiac Electrophysiology; ATTEND Internal Medicine Clinical Cardiac Electrophysiology

== ENCOUNTER 2017-10-21 13:03 | Observation (INO) ==
[2017-10-22 16:28] VITALS: BP 140/98
== END 2017-10-22 17:52 | disposition home or self-care (01) ==
LOC: N.EDINP 13:03 → N.ED 13:03 → N.TELES 17:41
PROVIDERS: ADMIT Hospitalist; ATTEND Hospitalist

== ENCOUNTER 2017-12-08 15:10 | Inpatient (IN) ==
[2017-12-08 17:01] LABS: Basophils % 0.4 % (0.0-0.8); Eosinophils # 0.1 10*3/uL (0.0-0.87); Eosinophils % 1.3 % (0.00-10.9); Hematocrit 42.1 VOL% (42.0-52.0); Hemoglobin 13.5 GM/DL (14.0-18.0); Immature Granulocytes % 0.3 %; Immature Granulocytes Absolute 0.02 #; Lymphocytes # 0.8 10*3/uL (1.4-4.0); Mean Corpuscular HGB Conc 32.1 GM/DL (32-36); Mean Corpuscular Hemoglobin 29 PG (27-34); Mean Corpuscular Volume 91.7 FL (87-102); Mean Platelet Volume 10.4 FL (9.6-12.0); Monocytes # 0.9 10*3/uL (0.11-0.8); Monocytes % 13.3 % (1.7-12.7); Neutrophils % 72.7 % (38.7-73.9); Platelet Count 208 T/CUMM (130-400); Red Blood Count 4.59 MC/CUMM (3.8-5.5); Red Cell Distribution Width 17.4 % (9.3-17.3); White Blood Count 6.9 T/CUMM (4-12)
[2017-12-08 17:20] LABS: Albumin 2.8 G/DL (3.4-5.0); Bilirubin,Total 0.7 MG/DL (0.2-1.0); Calcium 8.5 MG/DL (8.5-10.1); Osmolality,Calculated 294.8 MOS/KG (273-304); Potassium 3.9 MMOL/L (3.5-5.1)
[2017-12-08] MEDS ORDERED: ONDANSETRON 4 MG/2 ML VIAL IV PRN (19:24)
[2017-12-08] MEDS ORDERED: ACETAMINOPHEN 325 MG TABLET PO PRN ×2 (19:24→19:36)
[2017-12-08] MEDS ORDERED: GLUCAGON 1 MG VIAL IM PRN (19:24)
[2017-12-08] MEDS: MAGNESIUM OXIDE 400 MG TABLET PO SCH (21:49)
[2017-12-08] MEDS: METOPROLOL TARTRATE 50 MG TABLET PO SCH (21:49)
[2017-12-08] MEDS: PREGABALIN 50 MG CAPSULE PO SCH (21:50)
[2017-12-08] MEDS: INSULIN ASPART PROTAMINE/ASPART 70/30 100 UNIT/ML SUBCUT SCH (21:50)
[2017-12-08] MEDS: CLOTRIMAZOLE 1% CREAM 15 GM TUBE TOP SCH (21:50)
[2017-12-08] MEDS: FUROSEMIDE 40 MG/4 ML VIAL IV SCH (21:51)
[2017-12-08] MEDS: INSULIN LISPRO 100 UNIT/ML SUBCUT SCH (21:51)
[2017-12-08 22:27] LABS: INR 1.8; PT Patient Result 18.5 SECS
[2017-12-08] MEDS: MELATONIN 3 MG TABLET PO SCH (22:53)
[2017-12-09 06:51] LABS: Basophils % 0.4 % (0.0-0.8); Eosinophils # 0.1 10*3/uL (0.0-0.87); Eosinophils % 2.8 % (0.00-10.9); Hematocrit 41.6 VOL% (42.0-52.0); Hemoglobin 13.2 GM/DL (14.0-18.0); Immature Granulocytes % 0.4 %; Immature Granulocytes Absolute 0.02 #; Lymphocytes # 0.9 10*3/uL (1.4-4.0); Lymphocytes % 18.9 % (21.2-54.2); Mean Corpuscular HGB Conc 31.7 GM/DL (32-36); Mean Corpuscular Hemoglobin 29 PG (27-34); Mean Corpuscular Volume 92.7 FL (87-102); Mean Platelet Volume 10.6 FL (9.6-12.0); Monocytes # 0.7 10*3/uL (0.11-0.8); Monocytes % 13.4 % (1.7-12.7); Neutrophils # 3.2 10*3/uL (1.4-7.4); Neutrophils % 64.1 % (38.7-73.9); Platelet Count 187 T/CUMM (130-400); Red Blood Count 4.49 MC/CUMM (3.8-5.5); Red Cell Distribution Width 17.6 % (9.3-17.3); White Blood Count 4.9 T/CUMM (4-12)
[2017-12-09 07:04] LABS: INR 1.4; PT Patient Result 14.7 SECS
[2017-12-09 07:34] LABS: Albumin 2.7 G/DL (3.4-5.0); Bilirubin,Total 0.8 MG/DL (0.2-1.0); Calcium 8.7 MG/DL (8.5-10.1); Osmolality,Calculated 296.1 MOS/KG (273-304); Potassium 3.9 MMOL/L (3.5-5.1); Risk Ratio 2.56; Thyroid Stimulating Hormone 1.99 uIU/ml (0.358-3.74); VLDL CHOLESTEROL 21.6 MG/DL
[2017-12-09] MEDS: INSULIN LISPRO 100 UNIT/ML SUBCUT SCH ×4 (09:43→20:46)
[2017-12-09] MEDS: INSULIN ASPART PROTAMINE/ASPART 70/30 100 UNIT/ML SUBCUT SCH ×2 (09:56→18:18)
[2017-12-09] MEDS: MAGNESIUM OXIDE 400 MG TABLET PO SCH ×2 (09:56→20:45)
[2017-12-09] MEDS: DILTIAZEM CD 240 MG CAPSULE PO SCH (09:56)
[2017-12-09] MEDS: MULTIVITAMIN (BEROCCA) TABLET PO SCH (09:56)
[2017-12-09] MEDS: FUROSEMIDE 40 MG/4 ML VIAL IV SCH ×2 (09:57→16:38)
[2017-12-09] MEDS: PREGABALIN 50 MG CAPSULE PO SCH ×3 (09:57→20:45)
[2017-12-09] MEDS: PANTOPRAZOLE 40 MG TABLET PO SCH (09:57)
[2017-12-09] MEDS: METOPROLOL TARTRATE 50 MG TABLET PO SCH ×2 (09:57→20:45)
[2017-12-09] MEDS: TRIAMTERENE/HCTZ 37.5-25 MG CAPSULE PO SCH (10:48)
[2017-12-09] MEDS: CLOTRIMAZOLE 1% CREAM 15 GM TUBE TOP SCH ×2 (10:48→20:47)
[2017-12-09] MEDS: WARFARIN 5 MG TABLET PO SCH (18:42)
[2017-12-09] MEDS: MELATONIN 3 MG TABLET PO SCH (20:45)
[2017-12-09 22:43] LABS: Apearance,Urine CLEAR (Clear); Bacteria,Urine Occasional /HPF (Few); Bilirubin,Urine Negative (Negative); Blood, Urine Small mg/dL (Negative); Glucose,Urine (UA) Negative (Negative); Hyaline Casts,Urine 25 /LPF (0-3); Ketones,Urine Negative (Negative); Mucus,Urine Occasional /LPF (Occasional); Nitrite,Urine Negative (Negative); Protein,Urine 30 MG/DL; RBC,Urine 2 /HPF (0-4); Squamous Epithelial Cell,Urine Occasional /HPF (0-10); Urine Color Straw (Yellow); Urine Specific Gravity 1.006 (1.001-1.035); Urine Urobilinogen < 2.0 EU/DL (0.2-1.0); WBC,Urine 2 /HPF (0-6)
[2017-12-10 06:06] LABS: INR 3.6
[2017-12-10 06:14] LABS: PT Patient Result 35.8 SECS
[2017-12-10 06:15] LABS: Albumin 2.9 G/DL (3.4-5.0); Bilirubin,Total 0.5 MG/DL (0.2-1.0); Calcium 8.6 MG/DL (8.5-10.1); Osmolality,Calculated 292.8 MOS/KG (273-304); Potassium 4.1 MMOL/L (3.5-5.1); Total Protein 7.3 G/DL (6.4-8.3)
[2017-12-10] MEDS: INSULIN ASPART PROTAMINE/ASPART 70/30 100 UNIT/ML SUBCUT SCH ×2 (09:48→16:20)
[2017-12-10] MEDS: INSULIN LISPRO 100 UNIT/ML SUBCUT SCH ×4 (09:48→20:58)
[2017-12-10] MEDS: FUROSEMIDE 40 MG/4 ML VIAL IV SCH ×2 (09:52→16:20)
[2017-12-10] MEDS: METOPROLOL TARTRATE 50 MG TABLET PO SCH ×2 (09:53→20:57)
[2017-12-10] MEDS: CLOTRIMAZOLE 1% CREAM 15 GM TUBE TOP SCH ×2 (09:53→20:58)
[2017-12-10] MEDS: MULTIVITAMIN (BEROCCA) TABLET PO SCH (09:53)
[2017-12-10] MEDS: PREGABALIN 50 MG CAPSULE PO SCH ×3 (09:53→20:57)
[2017-12-10] MEDS: MAGNESIUM OXIDE 400 MG TABLET PO SCH ×2 (09:53→20:56)
[2017-12-10] MEDS: PANTOPRAZOLE 40 MG TABLET PO SCH (09:53)
[2017-12-10] MEDS: DILTIAZEM CD 240 MG CAPSULE PO SCH (09:53)
[2017-12-10] MEDS: TRIAMTERENE/HCTZ 37.5-25 MG CAPSULE PO SCH (10:17)
[2017-12-10] MEDS: PIPERACILLIN/TAZOBACTAM 3,375 MG in SODIUM CHLORIDE 0.9% 100 ML IV SCH ×2 (13:17→21:00)
[2017-12-10] MEDS: WARFARIN 5 MG TABLET PO SCH (17:31)
[2017-12-10] MEDS: MELATONIN 3 MG TABLET PO SCH (20:57)
[2017-12-10] MEDS: SODIUM CHLORIDE 0.65% NASAL SPRAY 45 ML BOTTLE BOTH NARES PRN (21:37)
[2017-12-11] MEDS: PIPERACILLIN/TAZOBACTAM 3,375 MG in SODIUM CHLORIDE 0.9% 100 ML IV SCH ×3 (05:25→22:00)
[2017-12-11] MEDS: DEXTROSE 50% 25 GM/50 ML VIAL IV PRN (06:09)
[2017-12-11 06:45] LABS: INR 1.5; PT Patient Result 15.5 SECS
[2017-12-11 06:59] LABS: Albumin 2.8 G/DL (3.4-5.0); Bilirubin,Total 0.8 MG/DL (0.2-1.0); Calcium 9.1 MG/DL (8.5-10.1); Osmolality,Calculated 291.7 MOS/KG (273-304); Potassium 3.5 MMOL/L (3.5-5.1); Total Protein 7.4 G/DL (6.4-8.3)
[2017-12-11] MEDS: INSULIN LISPRO 100 UNIT/ML SUBCUT SCH ×4 (07:35→20:40)
[2017-12-11] MEDS: INSULIN ASPART PROTAMINE/ASPART 70/30 100 UNIT/ML SUBCUT SCH ×2 (09:31→17:21)
[2017-12-11] MEDS: FUROSEMIDE 40 MG/4 ML VIAL IV SCH ×2 (09:33→15:11)
[2017-12-11] MEDS: PANTOPRAZOLE 40 MG TABLET PO SCH (10:48)
[2017-12-11] MEDS: METOPROLOL TARTRATE 50 MG TABLET PO SCH ×2 (10:48→21:24)
[2017-12-11] MEDS: TRIAMTERENE/HCTZ 37.5-25 MG CAPSULE PO SCH (10:48)
[2017-12-11] MEDS: DILTIAZEM CD 240 MG CAPSULE PO SCH (10:48)
[2017-12-11] MEDS: MAGNESIUM OXIDE 400 MG TABLET PO SCH ×2 (10:48→21:24)
[2017-12-11] MEDS: PREGABALIN 50 MG CAPSULE PO SCH ×3 (10:48→21:24)
[2017-12-11] MEDS: CLOTRIMAZOLE 1% CREAM 15 GM TUBE TOP SCH ×2 (10:51→21:24)
[2017-12-11] MEDS: MULTIVITAMIN (BEROCCA) TABLET PO SCH (10:54)
[2017-12-11] MEDS: SODIUM CHLORIDE 0.65% NASAL SPRAY 45 ML BOTTLE BOTH NARES PRN ×2 (12:12→15:11)
[2017-12-11] MEDS: WARFARIN 5 MG TABLET PO SCH (17:21)
[2017-12-11] MEDS: MELATONIN 3 MG TABLET PO SCH (21:24)
[2017-12-12] MEDS: PIPERACILLIN/TAZOBACTAM 3,375 MG in SODIUM CHLORIDE 0.9% 100 ML IV SCH (04:57)
[2017-12-12 06:42] LABS: INR 1.7; PT Patient Result 17.3 SECS
[2017-12-12] MEDS: INSULIN LISPRO 100 UNIT/ML SUBCUT SCH ×4 (08:27→21:45)
[2017-12-12] MEDS: PREGABALIN 50 MG CAPSULE PO SCH ×3 (09:32→22:00)
[2017-12-12] MEDS: MULTIVITAMIN (BEROCCA) TABLET PO SCH (09:32)
[2017-12-12] MEDS: PANTOPRAZOLE 40 MG TABLET PO SCH (09:32)
[2017-12-12] MEDS: FUROSEMIDE 40 MG/4 ML VIAL IV SCH ×2 (09:32→17:13)
[2017-12-12] MEDS: METOPROLOL TARTRATE 50 MG TABLET PO SCH ×2 (09:32→22:05)
[2017-12-12] MEDS: DILTIAZEM CD 240 MG CAPSULE PO SCH (09:32)
[2017-12-12] MEDS: MAGNESIUM OXIDE 400 MG TABLET PO SCH ×2 (09:32→22:00)
[2017-12-12] MEDS: INSULIN ASPART PROTAMINE/ASPART 70/30 100 UNIT/ML SUBCUT SCH ×3 (09:32→17:13)
[2017-12-12] MEDS: TRIAMTERENE/HCTZ 37.5-25 MG CAPSULE PO SCH (09:34)
[2017-12-12] MEDS: CLOTRIMAZOLE 1% CREAM 15 GM TUBE TOP SCH ×2 (09:35→22:05)
[2017-12-12] MEDS ORDERED: TUBERCULIN SKIN TEST 0.1 ML SYRINGE INTRADERM ONE (11:00)
[2017-12-12] MEDS: CLINDAMYCIN INJ 600 MG in PREMIX 1 EACH IV SCH ×3 (11:11→21:53)
[2017-12-12] MEDS: MUPIROCIN 2% OINT 22 GM TUBE TOP SCH (11:14)
[2017-12-12] MEDS: cefTAZidime 1,000 MG in SYRINGE 1 EACH IV SCH ×2 (12:54→21:46)
[2017-12-12] MEDS: WARFARIN 5 MG TABLET PO SCH (17:12)
[2017-12-12] MEDS ORDERED: FUROSEMIDE 40 MG/4 ML VIAL IV SCH (17:38)
[2017-12-12] MEDS: MELATONIN 3 MG TABLET PO SCH (22:00)
[2017-12-13] MEDS: ALBUTEROL 2.5 MG/3 ML NEB RESP TX PRN (00:53)
[2017-12-13] MEDS: CLINDAMYCIN INJ 600 MG in PREMIX 1 EACH IV SCH ×4 (03:15→20:38)
[2017-12-13 04:16] LABS: Hematocrit 40.5 VOL% (42.0-52.0); Hemoglobin 12.8 GM/DL (14.0-18.0); Mean Corpuscular HGB Conc 31.6 GM/DL (32-36); Mean Corpuscular Hemoglobin 29 PG (27-34); Mean Corpuscular Volume 91.6 FL (87-102); Red Blood Count 4.42 MC/CUMM (3.8-5.5); Red Cell Distribution Width 17.6 % (9.3-17.3); White Blood Count 3.9 T/CUMM (4-12)
[2017-12-13 04:17] LABS: Basophils % 0.3 % (0.0-0.8); Eosinophils # 0.1 10*3/uL (0.0-0.87); Eosinophils % 3.1 % (0.00-10.9); Immature Granulocytes % 0.3 %; Immature Granulocytes Absolute 0.01 #; Lymphocytes # 0.8 10*3/uL (1.4-4.0); Lymphocytes % 19.6 % (21.2-54.2); Mean Platelet Volume 10.5 FL (9.6-12.0); Monocytes # 0.5 10*3/uL (0.11-0.8); Monocytes % 11.6 % (1.7-12.7); Neutrophils # 2.5 10*3/uL (1.4-7.4); Neutrophils % 65.1 % (38.7-73.9); Platelet Count 209 T/CUMM (130-400)
[2017-12-13 04:19] LABS: INR 1.6; PT Patient Result 16.8 SECS
[2017-12-13 04:23] LABS: Calcium 8.3 MG/DL (8.5-10.1); Osmolality,Calculated 297.7 MOS/KG (273-304); Potassium 3.7 MMOL/L (3.5-5.1)
[2017-12-13 04:30] LABS: Albumin 2.6 G/DL (3.4-5.0); Bilirubin,Total 0.5 MG/DL (0.2-1.0); Calcium 8.6 MG/DL (8.5-10.1); Osmolality,Calculated 298.7 MOS/KG (273-304); Potassium 3.7 MMOL/L (3.5-5.1); Total Protein 6.5 G/DL (6.4-8.3)
[2017-12-13] MEDS: INSULIN LISPRO 100 UNIT/ML SUBCUT SCH ×4 (07:51→22:10)
[2017-12-13] MEDS: INSULIN ASPART PROTAMINE/ASPART 70/30 100 UNIT/ML SUBCUT SCH ×2 (07:51→17:15)
[2017-12-13] MEDS: cefTAZidime 1,000 MG in SYRINGE 1 EACH IV SCH ×2 (09:23→20:19)
[2017-12-13] MEDS: PANTOPRAZOLE 40 MG TABLET PO SCH (09:24)
[2017-12-13] MEDS: MULTIVITAMIN (BEROCCA) TABLET PO SCH (09:24)
[2017-12-13] MEDS: TRIAMTERENE/HCTZ 37.5-25 MG CAPSULE PO SCH (09:24)
[2017-12-13] MEDS: MAGNESIUM OXIDE 400 MG TABLET PO SCH ×2 (09:24→20:30)
[2017-12-13] MEDS: METOPROLOL TARTRATE 50 MG TABLET PO SCH ×2 (09:24→20:31)
[2017-12-13] MEDS: DILTIAZEM CD 240 MG CAPSULE PO SCH (09:24)
[2017-12-13] MEDS: CLOTRIMAZOLE 1% CREAM 15 GM TUBE TOP SCH ×2 (09:25→20:40)
[2017-12-13] MEDS: PREGABALIN 50 MG CAPSULE PO SCH ×3 (09:25→20:30)
[2017-12-13] MEDS: MUPIROCIN 2% OINT 22 GM TUBE TOP SCH (09:29)
[2017-12-13] MEDS ORDERED: WARFARIN 1 MG TABLET PO ONE (12:30)
[2017-12-13] MEDS ORDERED: WARFARIN 5 MG TABLET PO ONE (16:15)
[2017-12-13] MEDS: LACTOBACILLUS ACIDOPHILUS/BULGARICUS CAPLET PO SCH (16:51)
[2017-12-13] MEDS: FUROSEMIDE 40 MG/4 ML VIAL IV SCH (16:51)
[2017-12-13] MEDS: WARFARIN 5 MG TABLET PO SCH (18:32)
[2017-12-13] MEDS: MELATONIN 3 MG TABLET PO SCH (20:30)
[2017-12-14] MEDS: CLINDAMYCIN INJ 600 MG in PREMIX 1 EACH IV SCH ×4 (02:57→20:46)
[2017-12-14] MEDS: INSULIN LISPRO 100 UNIT/ML SUBCUT SCH ×4 (07:34→20:46)
[2017-12-14 07:43] LABS: Basophils % 0.7 % (0.0-0.8); Eosinophils # 0.2 10*3/uL (0.0-0.87); Eosinophils % 3.7 % (0.00-10.9); Hematocrit 42.8 VOL% (42.0-52.0); Hemoglobin 13.4 GM/DL (14.0-18.0); Immature Granulocytes % 0.2 %; Immature Granulocytes Absolute 0.01 #; Lymphocytes % 23.4 % (21.2-54.2); Mean Corpuscular HGB Conc 31.3 GM/DL (32-36); Mean Corpuscular Hemoglobin 29 PG (27-34); Mean Corpuscular Volume 92.2 FL (87-102); Mean Platelet Volume 10.8 FL (9.6-12.0); Monocytes # 0.6 10*3/uL (0.11-0.8); Monocytes % 14.5 % (1.7-12.7); Neutrophils # 2.5 10*3/uL (1.4-7.4); Neutrophils % 57.5 % (38.7-73.9); Platelet Count 208 T/CUMM (130-400); Red Blood Count 4.64 MC/CUMM (3.8-5.5); Red Cell Distribution Width 17.8 % (9.3-17.3); White Blood Count 4.3 T/CUMM (4-12)
[2017-12-14 08:01] LABS: Calcium 8.3 MG/DL (8.5-10.1); INR 2.1; Osmolality,Calculated 295.1 MOS/KG (273-304); Potassium 3.7 MMOL/L (3.5-5.1)
[2017-12-14 08:03] LABS: PT Patient Result 21.6 SECS
[2017-12-14] MEDS: MAGNESIUM OXIDE 400 MG TABLET PO SCH ×2 (09:48→20:45)
[2017-12-14] MEDS: PREGABALIN 50 MG CAPSULE PO SCH ×3 (09:48→20:45)
[2017-12-14] MEDS: DILTIAZEM CD 240 MG CAPSULE PO SCH (09:48)
[2017-12-14] MEDS: LACTOBACILLUS ACIDOPHILUS/BULGARICUS CAPLET PO SCH (09:48)
[2017-12-14] MEDS: TRIAMTERENE/HCTZ 37.5-25 MG CAPSULE PO SCH (09:48)
[2017-12-14] MEDS: METOPROLOL TARTRATE 50 MG TABLET PO SCH ×2 (09:48→20:46)
[2017-12-14] MEDS: PANTOPRAZOLE 40 MG TABLET PO SCH (09:48)
[2017-12-14] MEDS: MULTIVITAMIN (BEROCCA) TABLET PO SCH (09:48)
[2017-12-14] MEDS: FUROSEMIDE 40 MG/4 ML VIAL IV SCH (09:49)
[2017-12-14] MEDS: INSULIN ASPART PROTAMINE/ASPART 70/30 100 UNIT/ML SUBCUT SCH ×2 (09:49→17:32)
[2017-12-14] MEDS: cefTAZidime 1,000 MG in SYRINGE 1 EACH IV SCH ×2 (09:49→20:24)
[2017-12-14] MEDS: CLOTRIMAZOLE 1% CREAM 15 GM TUBE TOP SCH ×2 (09:57→20:49)
[2017-12-14] MEDS: MUPIROCIN 2% OINT 22 GM TUBE TOP SCH (17:32)
[2017-12-14] MEDS: FUROSEMIDE 40 MG TABLET PO SCH (17:32)
[2017-12-14] MEDS: WARFARIN 5 MG TABLET PO SCH (17:33)
[2017-12-14] MEDS: MELATONIN 3 MG TABLET PO SCH (20:45)
[2017-12-14] MEDS: FLUTICASONE 50 MCG NASAL SPRAY 16 GM BOTTLE BOTH NARES SCH (21:26)
[2017-12-15] MEDS: CLINDAMYCIN INJ 600 MG in PREMIX 1 EACH IV SCH ×4 (03:04→21:55)
[2017-12-15 05:29] LABS: Basophils % 0.5 % (0.0-0.8); Eosinophils # 0.1 10*3/uL (0.0-0.87); Eosinophils % 2.6 % (0.00-10.9); Hematocrit 41.8 VOL% (42.0-52.0); Hemoglobin 13.2 GM/DL (14.0-18.0); Immature Granulocytes % 0.2 %; Immature Granulocytes Absolute 0.01 #; Lymphocytes # 0.6 10*3/uL (1.4-4.0); Mean Corpuscular HGB Conc 31.6 GM/DL (32-36); Mean Corpuscular Hemoglobin 29 PG (27-34); Mean Corpuscular Volume 92.3 FL (87-102); Mean Platelet Volume 10.5 FL (9.6-12.0); Monocytes # 0.6 10*3/uL (0.11-0.8); Monocytes % 13.8 % (1.7-12.7); Neutrophils % 68.9 % (38.7-73.9); Platelet Count 219 T/CUMM (130-400); Red Blood Count 4.53 MC/CUMM (3.8-5.5); Red Cell Distribution Width 17.5 % (9.3-17.3); White Blood Count 4.3 T/CUMM (4-12)
[2017-12-15 05:37] LABS: INR 2.6
[2017-12-15 05:53] LABS: PT Patient Result 26.8 SECS
[2017-12-15 05:55] LABS: Calcium 8.5 MG/DL (8.5-10.1); Potassium 3.9 MMOL/L (3.5-5.1)
[2017-12-15] MEDS: INSULIN LISPRO 100 UNIT/ML SUBCUT SCH ×4 (08:56→22:30)
[2017-12-15] MEDS: LACTOBACILLUS ACIDOPHILUS/BULGARICUS CAPLET PO SCH (08:56)
[2017-12-15] MEDS: MULTIVITAMIN (BEROCCA) TABLET PO SCH (08:57)
[2017-12-15] MEDS: PANTOPRAZOLE 40 MG TABLET PO SCH (08:57)
[2017-12-15] MEDS: DILTIAZEM CD 240 MG CAPSULE PO SCH (08:57)
[2017-12-15] MEDS: METOPROLOL TARTRATE 50 MG TABLET PO SCH ×2 (08:58→22:43)
[2017-12-15] MEDS: FUROSEMIDE 40 MG TABLET PO SCH ×2 (08:58→16:33)
[2017-12-15] MEDS: PREGABALIN 50 MG CAPSULE PO SCH ×3 (08:58→22:42)
[2017-12-15] MEDS: INSULIN ASPART PROTAMINE/ASPART 70/30 100 UNIT/ML SUBCUT SCH ×2 (08:59→17:33)
[2017-12-15] MEDS: FLUTICASONE 50 MCG NASAL SPRAY 16 GM BOTTLE BOTH NARES SCH ×2 (09:00→22:42)
[2017-12-15] MEDS: MAGNESIUM OXIDE 400 MG TABLET PO SCH ×2 (09:07→22:43)
[2017-12-15] MEDS: CLOTRIMAZOLE 1% CREAM 15 GM TUBE TOP SCH ×2 (10:01→23:10)
[2017-12-15] MEDS: MUPIROCIN 2% OINT 22 GM TUBE TOP SCH (10:01)
[2017-12-15] MEDS: cefTAZidime 1,000 MG in SYRINGE 1 EACH IV SCH ×2 (10:06→21:50)
[2017-12-15] MEDS: WARFARIN 5 MG TABLET PO SCH (17:32)
[2017-12-15] MEDS: SKIN HEALING OINT (AQUAPHOR) 50 GM TUBE TOP SCH (18:44)
[2017-12-15] MEDS: MELATONIN 3 MG TABLET PO SCH (22:42)
[2017-12-16] MEDS: CLINDAMYCIN INJ 600 MG in PREMIX 1 EACH IV SCH ×4 (03:17→21:55)
[2017-12-16] MEDS: ALBUTEROL 2.5 MG/3 ML NEB RESP TX PRN (07:12)
[2017-12-16] MEDS: INSULIN ASPART PROTAMINE/ASPART 70/30 100 UNIT/ML SUBCUT SCH ×2 (08:55→16:31)
[2017-12-16] MEDS: FUROSEMIDE 40 MG TABLET PO SCH ×2 (08:55→16:15)
[2017-12-16] MEDS: INSULIN LISPRO 100 UNIT/ML SUBCUT SCH ×4 (08:55→22:12)
[2017-12-16] MEDS: DILTIAZEM CD 240 MG CAPSULE PO SCH (09:30)
[2017-12-16] MEDS: METOPROLOL TARTRATE 50 MG TABLET PO SCH ×2 (09:31→22:08)
[2017-12-16] MEDS: PREGABALIN 50 MG CAPSULE PO SCH ×3 (09:31→22:11)
[2017-12-16] MEDS: MULTIVITAMIN (BEROCCA) TABLET PO SCH (09:31)
[2017-12-16] MEDS: PANTOPRAZOLE 40 MG TABLET PO SCH (09:31)
[2017-12-16] MEDS: LACTOBACILLUS ACIDOPHILUS/BULGARICUS CAPLET PO SCH (09:31)
[2017-12-16] MEDS: MAGNESIUM OXIDE 400 MG TABLET PO SCH ×2 (09:31→22:08)
[2017-12-16] MEDS: CLOTRIMAZOLE 1% CREAM 15 GM TUBE TOP SCH ×2 (09:46→22:11)
[2017-12-16] MEDS: MUPIROCIN 2% OINT 22 GM TUBE TOP SCH (09:47)
[2017-12-16] MEDS: FLUTICASONE 50 MCG NASAL SPRAY 16 GM BOTTLE BOTH NARES SCH ×2 (09:47→22:15)
[2017-12-16] MEDS: SKIN HEALING OINT (AQUAPHOR) 50 GM TUBE TOP SCH (09:47)
[2017-12-16] MEDS: cefTAZidime 1,000 MG in SYRINGE 1 EACH IV SCH ×2 (11:26→21:45)
[2017-12-16] MEDS: WARFARIN 5 MG TABLET PO SCH (18:24)
[2017-12-16] MEDS: chlordiazePOXIDE 25 MG CAPSULE PO SCH (18:39)
[2017-12-16] MEDS ORDERED: LORazepam 2 MG/1 ML VIAL IV ONE (18:47)
[2017-12-16] MEDS ORDERED: chlordiazePOXIDE 25 MG CAPSULE PO SCH (19:00)
[2017-12-16] MEDS: MELATONIN 3 MG TABLET PO SCH (22:10)
[2017-12-17] MEDS: chlordiazePOXIDE 25 MG CAPSULE PO SCH ×4 (01:51→18:55)
[2017-12-17] MEDS: CLINDAMYCIN INJ 600 MG in PREMIX 1 EACH IV SCH ×4 (03:11→21:32)
[2017-12-17] MEDS: INSULIN LISPRO 100 UNIT/ML SUBCUT SCH ×4 (08:00→22:21)
[2017-12-17 09:25] LABS: INR 2.1
[2017-12-17 09:29] LABS: PT Patient Result 21.4 SECS
[2017-12-17] MEDS: INSULIN ASPART PROTAMINE/ASPART 70/30 100 UNIT/ML SUBCUT SCH ×2 (10:15→17:59)
[2017-12-17] MEDS: cefTAZidime 1,000 MG in SYRINGE 1 EACH IV SCH ×2 (10:18→21:39)
[2017-12-17] MEDS: LACTOBACILLUS ACIDOPHILUS/BULGARICUS CAPLET PO SCH (10:18)
[2017-12-17] MEDS: MAGNESIUM OXIDE 400 MG TABLET PO SCH ×2 (10:19→21:46)
[2017-12-17] MEDS: MULTIVITAMIN (BEROCCA) TABLET PO SCH (10:19)
[2017-12-17] MEDS: PREGABALIN 50 MG CAPSULE PO SCH ×3 (10:19→21:46)
[2017-12-17] MEDS: FUROSEMIDE 40 MG TABLET PO SCH ×2 (10:19→16:46)
[2017-12-17] MEDS: DILTIAZEM CD 240 MG CAPSULE PO SCH (10:19)
[2017-12-17] MEDS: PANTOPRAZOLE 40 MG TABLET PO SCH (10:20)
[2017-12-17] MEDS: METOPROLOL TARTRATE 50 MG TABLET PO SCH ×2 (10:20→21:46)
[2017-12-17] MEDS: FLUTICASONE 50 MCG NASAL SPRAY 16 GM BOTTLE BOTH NARES SCH ×2 (10:20→21:36)
[2017-12-17] MEDS: CLOTRIMAZOLE 1% CREAM 15 GM TUBE TOP SCH ×2 (10:20→21:51)
[2017-12-17] MEDS: MUPIROCIN 2% OINT 22 GM TUBE TOP SCH (10:27)
[2017-12-17] MEDS: SKIN HEALING OINT (AQUAPHOR) 50 GM TUBE TOP SCH (10:28)
[2017-12-17] MEDS: ALBUTEROL 2.5 MG/3 ML NEB RESP TX PRN (15:55)
[2017-12-17] MEDS: WARFARIN 5 MG TABLET PO SCH (18:05)
[2017-12-17] MEDS: ALBUTEROL 2.5 MG/3 ML NEB RESP TX SCH (19:21)
[2017-12-17] MEDS ORDERED: FUROSEMIDE 100 MG/10 ML VIAL IV ONE (21:15)
[2017-12-17] MEDS ORDERED: FUROSEMIDE 100 MG/10 ML VIAL ONE (21:17)
[2017-12-17 21:40] LABS: Troponin I < 0.015 NG/ML (0.00-0.045)
[2017-12-17] MEDS: MELATONIN 3 MG TABLET PO SCH (21:46)
[2017-12-18] MEDS: chlordiazePOXIDE 25 MG CAPSULE PO SCH ×4 (00:17→18:15)
[2017-12-18] MEDS: ALBUTEROL 2.5 MG/3 ML NEB RESP TX SCH ×4 (01:25→19:26)
[2017-12-18] MEDS: CLINDAMYCIN INJ 600 MG in PREMIX 1 EACH IV SCH ×4 (03:14→22:21)
[2017-12-18 04:26] LABS: INR 2.3
[2017-12-18 04:37] LABS: PT Patient Result 23.2 SECS
[2017-12-18] MEDS ORDERED: FUROSEMIDE 100 MG/10 ML VIAL IV ONE ×2 (08:52→15:00)
[2017-12-18 09:49] LABS: Basophils % 0.4 % (0.0-0.8); Eosinophils # 0.1 10*3/uL (0.0-0.87); Eosinophils % 1.6 % (0.00-10.9); Hemoglobin 12.7 GM/DL (14.0-18.0); Immature Granulocytes % 1.1 %; Immature Granulocytes Absolute 0.06 #; Lymphocytes % 17.1 % (21.2-54.2); Mean Corpuscular HGB Conc 31.8 GM/DL (32-36); Mean Corpuscular Hemoglobin 29 PG (27-34); Mean Corpuscular Volume 90.1 FL (87-102); Monocytes # 0.6 10*3/uL (0.11-0.8); Monocytes % 11.5 % (1.7-12.7); NRBC # 0.04 10*3/uL; Neutrophils # 3.8 10*3/uL (1.4-7.4); Neutrophils % 68.3 % (38.7-73.9); Platelet Count 229 T/CUMM (130-400); Red Blood Count 4.44 MC/CUMM (3.8-5.5); Red Cell Distribution Width 17.8 % (9.3-17.3); White Blood Count 5.6 T/CUMM (4-12)
[2017-12-18 10:15] LABS: Calcium 9.1 MG/DL (8.5-10.1); Potassium 4.2 MMOL/L (3.5-5.1)
[2017-12-18] MEDS: DILTIAZEM CD 240 MG CAPSULE PO SCH (10:57)
[2017-12-18] MEDS: LACTOBACILLUS ACIDOPHILUS/BULGARICUS CAPLET PO SCH (10:57)
[2017-12-18] MEDS: PANTOPRAZOLE 40 MG TABLET PO SCH (10:58)
[2017-12-18] MEDS: MULTIVITAMIN (BEROCCA) TABLET PO SCH (10:58)
[2017-12-18] MEDS: MAGNESIUM OXIDE 400 MG TABLET PO SCH ×2 (10:59→22:17)
[2017-12-18] MEDS: PREGABALIN 50 MG CAPSULE PO SCH ×3 (10:59→22:18)
[2017-12-18] MEDS: METOPROLOL TARTRATE 50 MG TABLET PO SCH ×2 (10:59→22:18)
[2017-12-18] MEDS: FLUTICASONE 50 MCG NASAL SPRAY 16 GM BOTTLE BOTH NARES SCH ×2 (10:59→22:20)
[2017-12-18] MEDS: INSULIN LISPRO 100 UNIT/ML SUBCUT SCH ×4 (11:00→22:16)
[2017-12-18] MEDS: INSULIN ASPART PROTAMINE/ASPART 70/30 100 UNIT/ML SUBCUT SCH ×2 (11:01→18:15)
[2017-12-18] MEDS: cefTAZidime 1,000 MG in SYRINGE 1 EACH IV SCH ×2 (11:10→22:17)
[2017-12-18] MEDS: FUROSEMIDE 40 MG TABLET PO SCH (11:20)
[2017-12-18 15:16] LABS: ABG Base Excess 6.1 MMOL/L (-2.5-2.5); ABG HCO3 29.6 MMOL/L (20-26); ABG Oxygen Saturation 84.3 % (95-100); ABG PH 7.252 (7.35-7.45); ABG PO2 58.7 MM HG (80-95); ABG TCO2 33.4 MMOL/L (23-27)
[2017-12-18] MEDS: MUPIROCIN 2% OINT 22 GM TUBE TOP SCH (15:41)
[2017-12-18] MEDS: SKIN HEALING OINT (AQUAPHOR) 50 GM TUBE TOP SCH (15:41)
[2017-12-18] MEDS: CLOTRIMAZOLE 1% CREAM 15 GM TUBE TOP SCH ×2 (15:41→22:20)
[2017-12-18] MEDS: FUROSEMIDE 40 MG/4 ML VIAL IV SCH (15:59)
[2017-12-18] MEDS: WARFARIN 5 MG TABLET PO SCH (18:15)
[2017-12-18] MEDS ORDERED: LABETALOL 100 MG/20 ML VIAL IV ONE (18:34)
[2017-12-18] MEDS: MELATONIN 3 MG TABLET PO SCH (22:18)
[2017-12-19] MEDS ORDERED: LABETALOL 100 MG/20 ML VIAL IV PRN
[2017-12-19] MEDS: ALBUTEROL 2.5 MG/3 ML NEB RESP TX SCH ×4 (00:19→19:38)
[2017-12-19] MEDS: chlordiazePOXIDE 25 MG CAPSULE PO SCH ×4 (00:59→18:19)
[2017-12-19] MEDS: CLINDAMYCIN INJ 600 MG in PREMIX 1 EACH IV SCH ×4 (04:24→22:41)
[2017-12-19 05:23] LABS: INR 1.8
[2017-12-19 05:24] LABS: Basophils % 0.6 % (0.0-0.8); Eosinophils # 0.1 10*3/uL (0.0-0.87); Eosinophils % 2.4 % (0.00-10.9); Hematocrit 42.4 VOL% (42.0-52.0); Hemoglobin 13.4 GM/DL (14.0-18.0); Immature Granulocytes % 0.2 %; Immature Granulocytes Absolute 0.01 #; Lymphocytes # 0.9 10*3/uL (1.4-4.0); Lymphocytes % 19.7 % (21.2-54.2); Mean Corpuscular HGB Conc 31.6 GM/DL (32-36); Mean Corpuscular Hemoglobin 28 PG (27-34); Mean Corpuscular Volume 89.8 FL (87-102); Mean Platelet Volume 10.6 FL (9.6-12.0); Monocytes # 0.6 10*3/uL (0.11-0.8); Monocytes % 13.2 % (1.7-12.7); Neutrophils % 63.9 % (38.7-73.9); Platelet Count 242 T/CUMM (130-400); Red Blood Count 4.72 MC/CUMM (3.8-5.5); Red Cell Distribution Width 17.9 % (9.3-17.3); White Blood Count 4.6 T/CUMM (4-12)
[2017-12-19 05:55] LABS: Albumin 2.8 G/DL (3.4-5.0); Bilirubin,Total 0.8 MG/DL (0.2-1.0); Calcium 9.3 MG/DL (8.5-10.1); Osmolality,Calculated 304.6 MOS/KG (273-304); Potassium 3.9 MMOL/L (3.5-5.1); Total Protein 7.5 G/DL (6.4-8.3)
[2017-12-19] MEDS: FUROSEMIDE 40 MG/4 ML VIAL IV SCH ×2 (09:08→15:36)
[2017-12-19] MEDS: INSULIN LISPRO 100 UNIT/ML SUBCUT SCH ×4 (09:23→21:52)
[2017-12-19] MEDS: INSULIN ASPART PROTAMINE/ASPART 70/30 100 UNIT/ML SUBCUT SCH ×2 (09:23→16:27)
[2017-12-19 09:44] LABS: ABG Oxygen Saturation 64.9 % (95-100); ABG PH 7.326 (7.35-7.45); ABG TCO2 33.1 MMOL/L (23-27)
[2017-12-19 09:50] LABS: ABG PCO2 71.9 MM HG (35-48); ABG PO2 38.4 MM HG (80-95)
[2017-12-19] MEDS ORDERED: LIDOCAINE 2% TOP JELLY 20 ML VIAL INTRAURETH ONE (10:21)
[2017-12-19] MEDS: SKIN HEALING OINT (AQUAPHOR) 50 GM TUBE TOP SCH (11:21)
[2017-12-19] MEDS: cefTAZidime 1,000 MG in SYRINGE 1 EACH IV SCH ×2 (11:21→22:12)
[2017-12-19] MEDS: DILTIAZEM CD 240 MG CAPSULE PO SCH (11:23)
[2017-12-19] MEDS: PANTOPRAZOLE 40 MG TABLET PO SCH (11:24)
[2017-12-19] MEDS: MAGNESIUM OXIDE 400 MG TABLET PO SCH ×2 (11:24→22:05)
[2017-12-19] MEDS: PREGABALIN 50 MG CAPSULE PO SCH ×3 (11:24→22:05)
[2017-12-19] MEDS: MULTIVITAMIN (BEROCCA) TABLET PO SCH (11:25)
[2017-12-19] MEDS: LACTOBACILLUS ACIDOPHILUS/BULGARICUS CAPLET PO SCH (11:25)
[2017-12-19] MEDS: SODIUM CHLORIDE 0.65% NASAL SPRAY 45 ML BOTTLE BOTH NARES PRN ×2 (11:26→11:27)
[2017-12-19] MEDS: METOPROLOL TARTRATE 50 MG TABLET PO SCH ×2 (11:26→22:05)
[2017-12-19] MEDS: CLOTRIMAZOLE 1% CREAM 15 GM TUBE TOP SCH ×2 (11:27→22:06)
[2017-12-19] MEDS: FLUTICASONE 50 MCG NASAL SPRAY 16 GM BOTTLE BOTH NARES SCH ×2 (11:28→22:11)
[2017-12-19] MEDS: MUPIROCIN 2% OINT 22 GM TUBE TOP SCH (11:28)
[2017-12-19] MEDS: WARFARIN 5 MG TABLET PO SCH (18:19)
[2017-12-19] MEDS: MELATONIN 3 MG TABLET PO SCH (22:05)
[2017-12-20] MEDS: chlordiazePOXIDE 25 MG CAPSULE PO SCH ×4 (00:26→18:46)
[2017-12-20] MEDS: ALBUTEROL 2.5 MG/3 ML NEB RESP TX SCH ×4 (01:49→19:35)
[2017-12-20] MEDS: LORazepam 2 MG/1 ML VIAL IV PRN ×2 (03:39→15:58)
[2017-12-20] MEDS: CLINDAMYCIN INJ 600 MG in PREMIX 1 EACH IV SCH ×4 (04:17→22:59)
[2017-12-20 04:21] LABS: Basophils % 0.7 % (0.0-0.8); Eosinophils # 0.2 10*3/uL (0.0-0.87); Eosinophils % 2.8 % (0.00-10.9); Hematocrit 43.9 VOL% (42.0-52.0); Immature Granulocytes % 0.3 %; Immature Granulocytes Absolute 0.02 #; Lymphocytes # 0.9 10*3/uL (1.4-4.0); Mean Corpuscular HGB Conc 31.9 GM/DL (32-36); Mean Corpuscular Hemoglobin 29 PG (27-34); Mean Corpuscular Volume 89.4 FL (87-102); Mean Platelet Volume 10.8 FL (9.6-12.0); Monocytes # 0.8 10*3/uL (0.11-0.8); Monocytes % 12.5 % (1.7-12.7); Neutrophils # 4.2 10*3/uL (1.4-7.4); Neutrophils % 69.7 % (38.7-73.9); Platelet Count 244 T/CUMM (130-400); Red Blood Count 4.91 MC/CUMM (3.8-5.5); Red Cell Distribution Width 17.9 % (9.3-17.3); White Blood Count 6.1 T/CUMM (4-12)
[2017-12-20 04:32] LABS: INR 2.3
[2017-12-20 04:47] LABS: Calcium 9.3 MG/DL (8.5-10.1); Osmolality,Calculated 302.8 MOS/KG (273-304); Potassium 3.7 MMOL/L (3.5-5.1)
[2017-12-20 04:48] LABS: PT Patient Result 23.4 SECS
[2017-12-20] MEDS ORDERED: HALOPERIDOL 5 MG/ML AMP IV PRN (05:57)
[2017-12-20] MEDS: INSULIN LISPRO 100 UNIT/ML SUBCUT SCH ×4 (08:39→21:39)
[2017-12-20] MEDS: INSULIN ASPART PROTAMINE/ASPART 70/30 100 UNIT/ML SUBCUT SCH ×2 (09:47→17:01)
[2017-12-20] MEDS: MUPIROCIN 2% OINT 22 GM TUBE TOP SCH (09:48)
[2017-12-20] MEDS: CLOTRIMAZOLE 1% CREAM 15 GM TUBE TOP SCH ×2 (09:48→23:46)
[2017-12-20] MEDS: PREGABALIN 50 MG CAPSULE PO SCH ×3 (09:48→23:00)
[2017-12-20] MEDS: FUROSEMIDE 40 MG/4 ML VIAL IV SCH (09:49)
[2017-12-20] MEDS: cefTAZidime 1,000 MG in SYRINGE 1 EACH IV SCH ×2 (09:57→22:55)
[2017-12-20] MEDS: SKIN HEALING OINT (AQUAPHOR) 50 GM TUBE TOP SCH (11:38)
[2017-12-20] MEDS: FLUTICASONE 50 MCG NASAL SPRAY 16 GM BOTTLE BOTH NARES SCH ×2 (11:38→23:00)
[2017-12-20] MEDS: MAGNESIUM OXIDE 400 MG TABLET PO SCH ×2 (11:39→23:01)
[2017-12-20 13:04] LABS: Collection Time,Urine 24 HOURS; Total Volume,Urine 1800 ML (400-2000)
[2017-12-20] MEDS: MULTIVITAMIN (BEROCCA) TABLET PO SCH (13:26)
[2017-12-20] MEDS: LACTOBACILLUS ACIDOPHILUS/BULGARICUS CAPLET PO SCH (13:26)
[2017-12-20] MEDS: DILTIAZEM CD 240 MG CAPSULE PO SCH ×2 (13:27→16:14)
[2017-12-20] MEDS: METOPROLOL TARTRATE 50 MG TABLET PO SCH ×2 (13:27→23:00)
[2017-12-20] MEDS: PANTOPRAZOLE 40 MG TABLET PO SCH (13:27)
[2017-12-20 13:54] LABS: Total Protein 24 Hr Ur Result 1674 MG/24HR (0-149.1)
[2017-12-20 14:20] LABS: Protein/Creatinine Ratio,Urine 0.8 RATIO
[2017-12-20] MEDS: WARFARIN 5 MG TABLET PO SCH (23:00)
[2017-12-20] MEDS: MELATONIN 3 MG TABLET PO SCH (23:01)
[2017-12-21] MEDS: ALBUTEROL 2.5 MG/3 ML NEB RESP TX SCH ×4 (00:06→19:33)
[2017-12-21] MEDS: WARFARIN 5 MG TABLET PO SCH ×2 (01:58→17:22)
[2017-12-21] MEDS: chlordiazePOXIDE 25 MG CAPSULE PO SCH ×4 (01:59→17:22)
[2017-12-21] MEDS: CLINDAMYCIN INJ 600 MG in PREMIX 1 EACH IV SCH ×5 (05:23→21:35)
[2017-12-21] MEDS: INSULIN LISPRO 100 UNIT/ML SUBCUT SCH ×4 (07:34→21:35)
[2017-12-21 08:24] LABS: Basophils % 0.5 % (0.0-0.8); Eosinophils # 0.1 10*3/uL (0.0-0.87); Eosinophils % 1.8 % (0.00-10.9); Hematocrit 41.9 VOL% (42.0-52.0); Hemoglobin 13.3 GM/DL (14.0-18.0); Immature Granulocytes % 0.4 %; Immature Granulocytes Absolute 0.02 #; Lymphocytes # 0.8 10*3/uL (1.4-4.0); Lymphocytes % 15.2 % (21.2-54.2); Mean Corpuscular HGB Conc 31.7 GM/DL (32-36); Mean Corpuscular Hemoglobin 29 PG (27-34); Mean Corpuscular Volume 90.9 FL (87-102); Mean Platelet Volume 10.1 FL (9.6-12.0); Monocytes # 0.8 10*3/uL (0.11-0.8); Neutrophils # 3.7 10*3/uL (1.4-7.4); Neutrophils % 67.1 % (38.7-73.9); Platelet Count 202 T/CUMM (130-400); Red Blood Count 4.61 MC/CUMM (3.8-5.5); Red Cell Distribution Width 17.8 % (9.3-17.3); White Blood Count 5.5 T/CUMM (4-12)
[2017-12-21 08:37] LABS: Albumin (UPE) 922.4 MG/24H; Albumin (UPE) Rel % 55.1 %; Alpha 1 (UPE) 214.3 MG/24H; Alpha 1 (UPE) Rel % 12.8 %; Alpha 2 (UPE) 182.5 MG/24H; Alpha 2 (UPE) Rel % 10.9 %; Beta (UPE) Rel % 8.9 %; Gamma (UPE) 205.9 MG/24H; Gamma (UPE) Rel % 12.3 %
[2017-12-21 08:42] LABS: Calcium 9.3 MG/DL (8.5-10.1); Osmolality,Calculated 301.8 MOS/KG (273-304); Potassium 3.7 MMOL/L (3.5-5.1)
[2017-12-21 09:32] LABS: Lymphocytes,Pleural Fluid 52 %; Monocytes,Pleural Fluid 17 %; Neutrophils,Pleural Fluid 31 %; RBC,Pleural Fluid 1007 T/CUMM
[2017-12-21] MEDS: INSULIN ASPART PROTAMINE/ASPART 70/30 100 UNIT/ML SUBCUT SCH ×2 (10:03→16:57)
[2017-12-21] MEDS: cefTAZidime 1,000 MG in SYRINGE 1 EACH IV SCH ×2 (10:05→21:31)
[2017-12-21] MEDS: DILTIAZEM CD 240 MG CAPSULE PO SCH (10:15)
[2017-12-21] MEDS: PREGABALIN 50 MG CAPSULE PO SCH ×3 (10:18→21:29)
[2017-12-21] MEDS: METOPROLOL TARTRATE 50 MG TABLET PO SCH ×2 (10:18→21:29)
[2017-12-21] MEDS: PANTOPRAZOLE 40 MG TABLET PO SCH (10:31)
[2017-12-21] MEDS: SKIN HEALING OINT (AQUAPHOR) 50 GM TUBE TOP SCH (10:31)
[2017-12-21] MEDS: MUPIROCIN 2% OINT 22 GM TUBE TOP SCH (10:31)
[2017-12-21] MEDS: CLOTRIMAZOLE 1% CREAM 15 GM TUBE TOP SCH ×2 (10:32→21:35)
[2017-12-21] MEDS: LACTOBACILLUS ACIDOPHILUS/BULGARICUS CAPLET PO SCH (11:48)
[2017-12-21] MEDS: MULTIVITAMIN (BEROCCA) TABLET PO SCH (11:48)
[2017-12-21] MEDS: MAGNESIUM OXIDE 400 MG TABLET PO SCH ×2 (11:49→21:29)
[2017-12-21] MEDS: FLUTICASONE 50 MCG NASAL SPRAY 16 GM BOTTLE BOTH NARES SCH ×2 (11:49→21:35)
[2017-12-21] MEDS: MELATONIN 3 MG TABLET PO SCH (21:29)
[2017-12-22] MEDS: ALBUTEROL 2.5 MG/3 ML NEB RESP TX SCH ×4 (00:59→19:38)
[2017-12-22] MEDS: CLINDAMYCIN INJ 600 MG in PREMIX 1 EACH IV SCH ×5 (05:12→21:03)
[2017-12-22 05:48] LABS: Basophils % 0.4 % (0.0-0.8); Eosinophils # 0.2 10*3/uL (0.0-0.87); Eosinophils % 2.8 % (0.00-10.9); Hematocrit 40.4 VOL% (42.0-52.0); Hemoglobin 13.1 GM/DL (14.0-18.0); Immature Granulocytes % 0.2 %; Immature Granulocytes Absolute 0.01 #; Lymphocytes # 0.8 10*3/uL (1.4-4.0); Lymphocytes % 14.6 % (21.2-54.2); Mean Corpuscular HGB Conc 32.4 GM/DL (32-36); Mean Corpuscular Hemoglobin 29 PG (27-34); Mean Corpuscular Volume 88.6 FL (87-102); Mean Platelet Volume 11.1 FL (9.6-12.0); Monocytes # 0.7 10*3/uL (0.11-0.8); Monocytes % 11.4 % (1.7-12.7); NRBC # 0.02 10*3/uL; Neutrophils % 70.6 % (38.7-73.9); Platelet Count 212 T/CUMM (130-400); Red Blood Count 4.56 MC/CUMM (3.8-5.5); Red Cell Distribution Width 17.8 % (9.3-17.3); White Blood Count 5.7 T/CUMM (4-12)
[2017-12-22 06:05] LABS: Calcium 9.2 MG/DL (8.5-10.1)
[2017-12-22] MEDS: INSULIN LISPRO 100 UNIT/ML SUBCUT SCH ×4 (08:27→20:00)
[2017-12-22 08:28] LABS: ABG Base Excess 7.3 MMOL/L (-2.5-2.5); ABG HCO3 30.9 MMOL/L (20-26); ABG Oxygen Saturation 91.8 % (95-100); ABG PO2 71.5 MM HG (80-95); ABG TCO2 32.2 MMOL/L (23-27); Allen Test Positive; Pt O2 Delivery Device BIPAP
[2017-12-22] MEDS: INSULIN ASPART PROTAMINE/ASPART 70/30 100 UNIT/ML SUBCUT SCH ×2 (08:28→17:10)
[2017-12-22 08:29] LABS: ABG PCO2 71.1 MM HG (35-48)
[2017-12-22] MEDS: MULTIVITAMIN (BEROCCA) TABLET PO SCH (08:45)
[2017-12-22] MEDS: DILTIAZEM CD 240 MG CAPSULE PO SCH (08:45)
[2017-12-22] MEDS: PANTOPRAZOLE 40 MG TABLET PO SCH (08:46)
[2017-12-22] MEDS: PREGABALIN 50 MG CAPSULE PO SCH ×3 (08:47→20:09)
[2017-12-22] MEDS: LACTOBACILLUS ACIDOPHILUS/BULGARICUS CAPLET PO SCH (08:47)
[2017-12-22] MEDS: SKIN HEALING OINT (AQUAPHOR) 50 GM TUBE TOP SCH (08:48)
[2017-12-22] MEDS: METOPROLOL TARTRATE 50 MG TABLET PO SCH ×2 (08:48→20:09)
[2017-12-22] MEDS: MUPIROCIN 2% OINT 22 GM TUBE TOP SCH (08:48)
[2017-12-22] MEDS: MAGNESIUM OXIDE 400 MG TABLET PO SCH ×2 (08:48→20:09)
[2017-12-22] MEDS: FLUTICASONE 50 MCG NASAL SPRAY 16 GM BOTTLE BOTH NARES SCH ×2 (08:49→20:08)
[2017-12-22] MEDS: CLOTRIMAZOLE 1% CREAM 15 GM TUBE TOP SCH ×2 (08:49→20:09)
[2017-12-22] MEDS: cefTAZidime 1,000 MG in SYRINGE 1 EACH IV SCH ×2 (08:50→20:08)
[2017-12-22] MEDS: WARFARIN 5 MG TABLET PO SCH (18:57)
[2017-12-22] MEDS: MELATONIN 3 MG TABLET PO SCH (20:01)
[2017-12-23] MEDS: ALBUTEROL 2.5 MG/3 ML NEB RESP TX SCH ×4 (00:09→19:52)
[2017-12-23 04:15] LABS: ABG Base Excess 9.5 MMOL/L (-2.5-2.5); ABG HCO3 32.9 MMOL/L (20-26); ABG PCO2 61.8 MM HG (35-48); ABG PH 7.388 (7.35-7.45); ABG PO2 52.7 MM HG (80-95); ABG TCO2 32.6 MMOL/L (23-27); Pt O2 Delivery Device BIPAP
[2017-12-23] MEDS: CLINDAMYCIN INJ 600 MG in PREMIX 1 EACH IV SCH ×4 (04:25→21:18)
[2017-12-23 05:27] LABS: Basophils % 0.6 % (0.0-0.8); Eosinophils # 0.1 10*3/uL (0.0-0.87); Eosinophils % 2.5 % (0.00-10.9); Hematocrit 39.8 VOL% (42.0-52.0); Hemoglobin 12.8 GM/DL (14.0-18.0); Immature Granulocytes % 0.6 %; Immature Granulocytes Absolute 0.03 #; Lymphocytes # 0.8 10*3/uL (1.4-4.0); Lymphocytes % 15.1 % (21.2-54.2); Mean Corpuscular HGB Conc 32.2 GM/DL (32-36); Mean Corpuscular Hemoglobin 29 PG (27-34); Mean Corpuscular Volume 88.8 FL (87-102); Mean Platelet Volume 10.9 FL (9.6-12.0); Monocytes # 0.5 10*3/uL (0.11-0.8); Monocytes % 10.3 % (1.7-12.7); Neutrophils # 3.7 10*3/uL (1.4-7.4); Neutrophils % 70.9 % (38.7-73.9); Platelet Count 205 T/CUMM (130-400); Red Blood Count 4.48 MC/CUMM (3.8-5.5); Red Cell Distribution Width 17.6 % (9.3-17.3); White Blood Count 5.2 T/CUMM (4-12)
[2017-12-23 05:52] LABS: Blood Urea Nitrogen 57 MG/DL (7-18); Calcium 8.8 MG/DL (8.5-10.1); Glucose 126 MG/DL (74-106); Osmolality,Calculated 300.1 MOS/KG (273-304); Potassium 3.8 MMOL/L (3.5-5.1); Sodium 142 MMOL/L (136-145); Troponin I < 0.015 NG/ML (0.00-0.045)
[2017-12-23] MEDS: INSULIN LISPRO 100 UNIT/ML SUBCUT SCH ×4 (07:15→20:24)
[2017-12-23] MEDS: INSULIN ASPART PROTAMINE/ASPART 70/30 100 UNIT/ML SUBCUT SCH ×2 (07:15→17:20)
[2017-12-23] MEDS: MULTIVITAMIN (BEROCCA) TABLET PO SCH (09:33)
[2017-12-23] MEDS: PREGABALIN 50 MG CAPSULE PO SCH ×3 (09:33→20:24)
[2017-12-23] MEDS: MAGNESIUM OXIDE 400 MG TABLET PO SCH ×2 (09:33→20:25)
[2017-12-23] MEDS: DILTIAZEM CD 240 MG CAPSULE PO SCH (09:33)
[2017-12-23] MEDS: cefTAZidime 1,000 MG in SYRINGE 1 EACH IV SCH ×2 (09:33→20:23)
[2017-12-23] MEDS: LACTOBACILLUS ACIDOPHILUS/BULGARICUS CAPLET PO SCH (09:33)
[2017-12-23] MEDS: PANTOPRAZOLE 40 MG TABLET PO SCH (09:34)
[2017-12-23] MEDS: METOPROLOL TARTRATE 50 MG TABLET PO SCH ×2 (09:34→20:24)
[2017-12-23] MEDS: CLOTRIMAZOLE 1% CREAM 15 GM TUBE TOP SCH ×2 (09:35→20:24)
[2017-12-23] MEDS: SKIN HEALING OINT (AQUAPHOR) 50 GM TUBE TOP SCH (09:35)
[2017-12-23] MEDS: FLUTICASONE 50 MCG NASAL SPRAY 16 GM BOTTLE BOTH NARES SCH ×2 (09:35→20:24)
[2017-12-23] MEDS: MUPIROCIN 2% OINT 22 GM TUBE TOP SCH (09:35)
[2017-12-23 13:17] LABS: ABG Base Excess 8.5 MMOL/L (-2.5-2.5); ABG HCO3 31.8 MMOL/L (20-26); ABG Oxygen Saturation 81.5 % (95-100); ABG PH 7.337 (7.35-7.45); ABG PO2 52.8 MM HG (80-95); ABG TCO2 33.1 MMOL/L (23-27)
[2017-12-23 13:20] LABS: ABG PCO2 69.9 MM HG (35-48)
[2017-12-23 15:37] LABS: ABG Base Excess 9.3 MMOL/L (-2.5-2.5); ABG HCO3 32.7 MMOL/L (20-26); ABG PCO2 64.8 MM HG (35-48); ABG PO2 56.9 MM HG (80-95)
[2017-12-23] MEDS: WARFARIN 5 MG TABLET PO SCH (17:20)
[2017-12-23] MEDS: MELATONIN 3 MG TABLET PO SCH (20:27)
[2017-12-24] MEDS: ALBUTEROL 2.5 MG/3 ML NEB RESP TX SCH ×4 (01:21→19:26)
[2017-12-24] MEDS: CLINDAMYCIN INJ 600 MG in PREMIX 1 EACH IV SCH ×4 (03:49→21:39)
[2017-12-24 06:34] LABS: INR 3.9
[2017-12-24 06:38] LABS: PT Patient Result 38.7 SECS
[2017-12-24] MEDS: INSULIN LISPRO 100 UNIT/ML SUBCUT SCH ×4 (07:33→20:40)
[2017-12-24] MEDS: INSULIN ASPART PROTAMINE/ASPART 70/30 100 UNIT/ML SUBCUT SCH ×2 (07:33→16:20)
[2017-12-24 09:34] LABS: Basophils % 0.4 % (0.0-0.8); Eosinophils # 0.1 10*3/uL (0.0-0.87); Eosinophils % 2.7 % (0.00-10.9); Hematocrit 40.6 VOL% (42.0-52.0); Hemoglobin 13.1 GM/DL (14.0-18.0); Immature Granulocytes % 0.6 %; Immature Granulocytes Absolute 0.03 #; Lymphocytes % 18.5 % (21.2-54.2); Mean Corpuscular HGB Conc 32.3 GM/DL (32-36); Mean Corpuscular Hemoglobin 29 PG (27-34); Mean Corpuscular Volume 88.8 FL (87-102); Mean Platelet Volume 10.5 FL (9.6-12.0); Monocytes # 0.6 10*3/uL (0.11-0.8); Monocytes % 12.1 % (1.7-12.7); Neutrophils # 3.4 10*3/uL (1.4-7.4); Neutrophils % 65.7 % (38.7-73.9); Platelet Count 205 T/CUMM (130-400); Red Blood Count 4.57 MC/CUMM (3.8-5.5); Red Cell Distribution Width 18.1 % (9.3-17.3); White Blood Count 5.1 T/CUMM (4-12)
[2017-12-24] MEDS: SKIN HEALING OINT (AQUAPHOR) 50 GM TUBE TOP SCH (09:45)
[2017-12-24] MEDS: MUPIROCIN 2% OINT 22 GM TUBE TOP SCH (09:45)
[2017-12-24] MEDS: CLOTRIMAZOLE 1% CREAM 15 GM TUBE TOP SCH ×2 (09:45→20:39)
[2017-12-24] MEDS: FLUTICASONE 50 MCG NASAL SPRAY 16 GM BOTTLE BOTH NARES SCH ×2 (09:45→20:38)
[2017-12-24] MEDS: METOPROLOL TARTRATE 50 MG TABLET PO SCH ×2 (09:46→20:40)
[2017-12-24] MEDS: MULTIVITAMIN (BEROCCA) TABLET PO SCH (09:46)
[2017-12-24] MEDS: PANTOPRAZOLE 40 MG TABLET PO SCH (09:46)
[2017-12-24] MEDS: LACTOBACILLUS ACIDOPHILUS/BULGARICUS CAPLET PO SCH (09:46)
[2017-12-24] MEDS: MAGNESIUM OXIDE 400 MG TABLET PO SCH ×2 (09:46→20:40)
[2017-12-24] MEDS: DILTIAZEM CD 240 MG CAPSULE PO SCH (09:47)
[2017-12-24] MEDS: PREGABALIN 50 MG CAPSULE PO SCH ×3 (09:48→20:39)
[2017-12-24] MEDS: cefTAZidime 1,000 MG in SYRINGE 1 EACH IV SCH ×2 (09:50→20:38)
[2017-12-24 10:01] LABS: Albumin 2.4 G/DL (3.4-5.0); Calcium 8.7 MG/DL (8.5-10.1); Potassium 3.9 MMOL/L (3.5-5.1)
[2017-12-24 11:55] LABS: Creatinine,Urine Random 361 MG/DL; Total Protein,Urine Random 242 MG/DL; Urea Nitrogen, Urine Random 377 MG/DL
[2017-12-24 16:19] LABS: Allen Test Positive; Pt O2 Delivery Device BIPAP
[2017-12-24] MEDS: WARFARIN 5 MG TABLET PO SCH (17:04)
[2017-12-24 20:21] LABS: ABG Base Excess 8.5 MMOL/L (-2.5-2.5); ABG HCO3 31.9 MMOL/L (20-26); ABG Oxygen Saturation 84.6 % (95-100); ABG PCO2 66.3 MM HG (35-48); ABG PH 7.354 (7.35-7.45); ABG PO2 55.5 MM HG (80-95); ABG TCO2 32.6 MMOL/L (23-27)
[2017-12-24] MEDS: MELATONIN 3 MG TABLET PO SCH (20:39)
[2017-12-25] MEDS: ALBUTEROL 2.5 MG/3 ML NEB RESP TX SCH ×4 (00:47→19:00)
[2017-12-25 04:25] LABS: Basophils % 0.2 % (0.0-0.8); Eosinophils # 0.1 10*3/uL (0.0-0.87); Eosinophils % 2.4 % (0.00-10.9); Hematocrit 38.6 VOL% (42.0-52.0); Hemoglobin 12.9 GM/DL (14.0-18.0); Immature Granulocytes % 0.4 %; Immature Granulocytes Absolute 0.02 #; Lymphocytes # 0.8 10*3/uL (1.4-4.0); Lymphocytes % 16.7 % (21.2-54.2); Mean Corpuscular HGB Conc 33.4 GM/DL (32-36); Mean Corpuscular Hemoglobin 29 PG (27-34); Mean Corpuscular Volume 86.9 FL (87-102); Mean Platelet Volume 11.2 FL (9.6-12.0); Monocytes # 0.6 10*3/uL (0.11-0.8); Neutrophils # 3.5 10*3/uL (1.4-7.4); Neutrophils % 69.3 % (38.7-73.9); Platelet Count 206 T/CUMM (130-400); Red Blood Count 4.44 MC/CUMM (3.8-5.5)
[2017-12-25 04:45] LABS: Albumin 2.4 G/DL (3.4-5.0); Osmolality,Calculated 304.3 MOS/KG (273-304); Potassium 4.2 MMOL/L (3.5-5.1)
[2017-12-25 04:46] LABS: INR 2.9
[2017-12-25 04:47] LABS: PT Patient Result 29.1 SECS
[2017-12-25] MEDS: CLINDAMYCIN INJ 600 MG in PREMIX 1 EACH IV SCH ×4 (05:03→23:05)
[2017-12-25] MEDS: INSULIN ASPART PROTAMINE/ASPART 70/30 100 UNIT/ML SUBCUT SCH ×2 (08:01→17:38)
[2017-12-25] MEDS: MUPIROCIN 2% OINT 22 GM TUBE TOP SCH (08:02)
[2017-12-25] MEDS: LACTOBACILLUS ACIDOPHILUS/BULGARICUS CAPLET PO SCH (08:02)
[2017-12-25] MEDS: METOPROLOL TARTRATE 50 MG TABLET PO SCH ×2 (08:02→20:55)
[2017-12-25] MEDS: INSULIN LISPRO 100 UNIT/ML SUBCUT SCH ×3 (08:02→16:51)
[2017-12-25] MEDS: SKIN HEALING OINT (AQUAPHOR) 50 GM TUBE TOP SCH (08:02)
[2017-12-25] MEDS: MAGNESIUM OXIDE 400 MG TABLET PO SCH ×2 (08:03→20:54)
[2017-12-25] MEDS: MULTIVITAMIN (BEROCCA) TABLET PO SCH (08:04)
[2017-12-25] MEDS: DILTIAZEM CD 240 MG CAPSULE PO SCH (08:04)
[2017-12-25] MEDS: CLOTRIMAZOLE 1% CREAM 15 GM TUBE TOP SCH ×2 (08:05→21:00)
[2017-12-25] MEDS: FLUTICASONE 50 MCG NASAL SPRAY 16 GM BOTTLE BOTH NARES SCH ×2 (08:05→20:55)
[2017-12-25] MEDS: PANTOPRAZOLE 40 MG TABLET PO SCH (08:05)
[2017-12-25] MEDS: cefTAZidime 1,000 MG in SYRINGE 1 EACH IV SCH ×2 (08:23→21:00)
[2017-12-25] MEDS: PREGABALIN 50 MG CAPSULE PO SCH ×3 (08:24→20:54)
[2017-12-25] MEDS: OXYBUTYNIN XL 10 MG TABLET PO SCH (12:09)
[2017-12-25] MEDS: WARFARIN 5 MG TABLET PO SCH (17:39)
[2017-12-25] MEDS: MELATONIN 3 MG TABLET PO SCH (20:55)
[2017-12-26] MEDS: ALBUTEROL 2.5 MG/3 ML NEB RESP TX SCH ×4 (00:18→19:17)
[2017-12-26] MEDS: cefTAZidime 1,000 MG in SYRINGE 1 EACH IV SCH ×2 (01:39→08:58)
[2017-12-26] MEDS: INSULIN LISPRO 100 UNIT/ML SUBCUT SCH ×5 (01:40→20:41)
[2017-12-26 04:13] LABS: Basophils % 0.3 % (0.0-0.8); Eosinophils # 0.1 10*3/uL (0.0-0.87); Eosinophils % 1.9 % (0.00-10.9); Hematocrit 41.2 VOL% (42.0-52.0); Hemoglobin 13.3 GM/DL (14.0-18.0); Immature Granulocytes % 0.5 %; Immature Granulocytes Absolute 0.03 #; Lymphocytes # 0.9 10*3/uL (1.4-4.0); Lymphocytes % 13.4 % (21.2-54.2); Mean Corpuscular HGB Conc 32.3 GM/DL (32-36); Mean Corpuscular Hemoglobin 29 PG (27-34); Mean Corpuscular Volume 90.5 FL (87-102); Monocytes # 0.9 10*3/uL (0.11-0.8); Monocytes % 14.2 % (1.7-12.7); Neutrophils # 4.5 10*3/uL (1.4-7.4); Neutrophils % 69.7 % (38.7-73.9); Platelet Count 210 T/CUMM (130-400); Red Blood Count 4.55 MC/CUMM (3.8-5.5); Red Cell Distribution Width 18.3 % (9.3-17.3); White Blood Count 6.4 T/CUMM (4-12)
[2017-12-26 04:17] LABS: INR 1.8; PT Patient Result 18.7 SECS
[2017-12-26 04:40] LABS: Albumin 2.4 G/DL (3.4-5.0); Calcium 9.1 MG/DL (8.5-10.1); Osmolality,Calculated 297.4 MOS/KG (273-304)
[2017-12-26] MEDS: CLINDAMYCIN INJ 600 MG in PREMIX 1 EACH IV SCH (05:48)
[2017-12-26] MEDS: LACTOBACILLUS ACIDOPHILUS/BULGARICUS CAPLET PO SCH (08:01)
[2017-12-26] MEDS: DILTIAZEM CD 180 MG CAPSULE PO SCH (08:02)
[2017-12-26] MEDS: MULTIVITAMIN (BEROCCA) TABLET PO SCH (08:02)
[2017-12-26] MEDS: PREGABALIN 50 MG CAPSULE PO SCH (08:02)
[2017-12-26] MEDS: METOPROLOL TARTRATE 50 MG TABLET PO SCH ×2 (08:02→20:38)
[2017-12-26] MEDS: PANTOPRAZOLE 40 MG TABLET PO SCH (08:02)
[2017-12-26] MEDS: ACETAMINOPHEN 325 MG TABLET PO PRN (08:02)
[2017-12-26] MEDS: OXYBUTYNIN XL 10 MG TABLET PO SCH (08:02)
[2017-12-26] MEDS: SKIN HEALING OINT (AQUAPHOR) 50 GM TUBE TOP SCH (08:03)
[2017-12-26] MEDS: FLUTICASONE 50 MCG NASAL SPRAY 16 GM BOTTLE BOTH NARES SCH ×2 (08:03→20:38)
[2017-12-26] MEDS: CLOTRIMAZOLE 1% CREAM 15 GM TUBE TOP SCH ×2 (08:03→20:38)
[2017-12-26] MEDS: MUPIROCIN 2% OINT 22 GM TUBE TOP SCH (08:03)
[2017-12-26] MEDS: MAGNESIUM OXIDE 400 MG TABLET PO SCH ×2 (08:03→20:42)
[2017-12-26] MEDS: INSULIN ASPART PROTAMINE/ASPART 70/30 100 UNIT/ML SUBCUT SCH ×2 (08:58→17:06)
[2017-12-26 09:43] LABS: ABG Base Excess 7.5 MMOL/L (-2.5-2.5); ABG HCO3 30.8 MMOL/L (20-26); ABG Oxygen Saturation 80.1 % (95-100); ABG PH 7.295 (7.35-7.45); ABG PO2 52.5 MM HG (80-95); ABG TCO2 33.5 MMOL/L (23-27); Allen Test Positive
[2017-12-26 09:44] LABS: ABG PCO2 77.4 MM HG (35-48)
[2017-12-26] MEDS: ALBUMIN 25% 12.5 GM in PREMIX 1 EACH IV SCH ×2 (12:33→20:38)
[2017-12-26] MEDS: DEXTROSE 50% 25 GM/50 ML VIAL IV PRN (17:04)
[2017-12-26] MEDS: WARFARIN 5 MG TABLET PO SCH (18:14)
[2017-12-27] MEDS: ALBUTEROL 2.5 MG/3 ML NEB RESP TX SCH ×4 (00:43→19:32)
[2017-12-27] MEDS: ALBUMIN 25% 12.5 GM in PREMIX 1 EACH IV SCH ×3 (03:06→21:35)
[2017-12-27 05:03] LABS: INR 1.8; PT Patient Result 18.2 SECS
[2017-12-27 05:07] LABS: Basophils % 0.4 % (0.0-0.8); Eosinophils # 0.2 10*3/uL (0.0-0.87); Hematocrit 38.5 VOL% (42.0-52.0); Hemoglobin 12.6 GM/DL (14.0-18.0); Immature Granulocytes % 0.4 %; Immature Granulocytes Absolute 0.03 #; Lymphocytes % 13.5 % (21.2-54.2); Mean Corpuscular HGB Conc 32.7 GM/DL (32-36); Mean Corpuscular Hemoglobin 29 PG (27-34); Mean Corpuscular Volume 88.1 FL (87-102); Mean Platelet Volume 10.7 FL (9.6-12.0); Monocytes # 0.7 10*3/uL (0.11-0.8); Monocytes % 9.5 % (1.7-12.7); Neutrophils # 5.2 10*3/uL (1.4-7.4); Neutrophils % 73.2 % (38.7-73.9); Platelet Count 217 T/CUMM (130-400); Red Blood Count 4.37 MC/CUMM (3.8-5.5); Red Cell Distribution Width 17.7 % (9.3-17.3)
[2017-12-27 05:28] LABS: Albumin 2.8 G/DL (3.4-5.0); Osmolality,Calculated 301.4 MOS/KG (273-304); Potassium 4.3 MMOL/L (3.5-5.1)
[2017-12-27] MEDS ORDERED: FUROSEMIDE 40 MG/4 ML VIAL IV ONE (08:07)
[2017-12-27] MEDS: PANTOPRAZOLE 40 MG TABLET PO SCH (08:22)
[2017-12-27] MEDS: MULTIVITAMIN (BEROCCA) TABLET PO SCH (08:22)
[2017-12-27] MEDS: OXYBUTYNIN XL 10 MG TABLET PO SCH (08:22)
[2017-12-27] MEDS: DILTIAZEM CD 180 MG CAPSULE PO SCH (08:23)
[2017-12-27] MEDS: MAGNESIUM OXIDE 400 MG TABLET PO SCH ×2 (08:23→21:35)
[2017-12-27] MEDS: PREGABALIN 50 MG CAPSULE PO SCH (08:23)
[2017-12-27] MEDS: METOPROLOL TARTRATE 50 MG TABLET PO SCH ×2 (08:23→21:35)
[2017-12-27] MEDS: FLUTICASONE 50 MCG NASAL SPRAY 16 GM BOTTLE BOTH NARES SCH ×2 (08:25→21:42)
[2017-12-27] MEDS: SKIN HEALING OINT (AQUAPHOR) 50 GM TUBE TOP SCH (08:25)
[2017-12-27] MEDS: methylPREDNISolone SOD SUC 40 MG/1 ML VIAL IV SCH ×2 (08:26→16:55)
[2017-12-27] MEDS: CLOTRIMAZOLE 1% CREAM 15 GM TUBE TOP SCH ×2 (08:26→21:42)
[2017-12-27] MEDS: MUPIROCIN 2% OINT 22 GM TUBE TOP SCH (08:26)
[2017-12-27] MEDS: INSULIN LISPRO 100 UNIT/ML SUBCUT SCH ×4 (08:26→21:35)
[2017-12-27] MEDS: INSULIN ASPART PROTAMINE/ASPART 70/30 100 UNIT/ML SUBCUT SCH ×2 (08:27→16:56)
[2017-12-27] MEDS: LACTOBACILLUS ACIDOPHILUS/BULGARICUS CAPLET PO SCH (08:35)
[2017-12-27] MEDS: ACETAMINOPHEN 325 MG TABLET PO PRN (08:52)
[2017-12-27] MEDS: WARFARIN 5 MG TABLET PO SCH (18:06)
[2017-12-28] MEDS: ALBUTEROL 2.5 MG/3 ML NEB RESP TX SCH ×4 (00:21→19:19)
[2017-12-28] MEDS: methylPREDNISolone SOD SUC 40 MG/1 ML VIAL IV SCH ×3 (03:03→15:30)
[2017-12-28] MEDS: ALBUMIN 25% 12.5 GM in PREMIX 1 EACH IV SCH (03:07)
[2017-12-28 06:28] LABS: Hematocrit 38.9 VOL% (42.0-52.0); Immature Granulocytes % 0.3 %; Immature Granulocytes Absolute 0.02 #; Lymphocytes # 0.5 10*3/uL (1.4-4.0); Lymphocytes % 8.3 % (21.2-54.2); Mean Corpuscular HGB Conc 33.4 GM/DL (32-36); Mean Corpuscular Hemoglobin 29 PG (27-34); Mean Corpuscular Volume 86.1 FL (87-102); Mean Platelet Volume 10.8 FL (9.6-12.0); Monocytes # 0.1 10*3/uL (0.11-0.8); Monocytes % 1.7 % (1.7-12.7); Neutrophils # 5.4 10*3/uL (1.4-7.4); Neutrophils % 89.7 % (38.7-73.9); Platelet Count 227 T/CUMM (130-400); Red Blood Count 4.52 MC/CUMM (3.8-5.5); Red Cell Distribution Width 17.7 % (9.3-17.3)
[2017-12-28 06:33] LABS: INR 1.7; PT Patient Result 17.6 SECS
[2017-12-28 06:56] LABS: Calcium 9.4 MG/DL (8.5-10.1); Osmolality,Calculated 306.8 MOS/KG (273-304); Potassium 4.7 MMOL/L (3.5-5.1)
[2017-12-28] MEDS: MULTIVITAMIN (BEROCCA) TABLET PO SCH (09:12)
[2017-12-28] MEDS: INSULIN ASPART PROTAMINE/ASPART 70/30 100 UNIT/ML SUBCUT SCH ×2 (09:12→16:41)
[2017-12-28] MEDS: INSULIN LISPRO 100 UNIT/ML SUBCUT SCH ×4 (09:12→21:36)
[2017-12-28] MEDS: METOPROLOL TARTRATE 50 MG TABLET PO SCH ×2 (09:13→21:27)
[2017-12-28] MEDS: PANTOPRAZOLE 40 MG TABLET PO SCH (09:13)
[2017-12-28] MEDS: MAGNESIUM OXIDE 400 MG TABLET PO SCH ×2 (09:13→20:39)
[2017-12-28] MEDS: OXYBUTYNIN XL 10 MG TABLET PO SCH (09:13)
[2017-12-28] MEDS: PREGABALIN 50 MG CAPSULE PO SCH (09:13)
[2017-12-28] MEDS: DILTIAZEM CD 120 MG CAPSULE PO SCH (09:13)
[2017-12-28] MEDS: THEOPHYLLINE ER (24 HR) 400 MG CAPSULE PO SCH (09:13)
[2017-12-28] MEDS: LACTOBACILLUS ACIDOPHILUS/BULGARICUS CAPLET PO SCH (09:13)
[2017-12-28] MEDS: CLOTRIMAZOLE 1% CREAM 15 GM TUBE TOP SCH ×2 (09:14→20:40)
[2017-12-28] MEDS: SKIN HEALING OINT (AQUAPHOR) 50 GM TUBE TOP SCH (09:14)
[2017-12-28] MEDS: FLUTICASONE 50 MCG NASAL SPRAY 16 GM BOTTLE BOTH NARES SCH ×2 (09:14→20:40)
[2017-12-28] MEDS: MUPIROCIN 2% OINT 22 GM TUBE TOP SCH (09:14)
[2017-12-28] MEDS: ACETAMINOPHEN 325 MG TABLET PO PRN (09:17)
[2017-12-28] MEDS ORDERED: hydrALAZINE 20 MG/1 ML VIAL IV PRN (11:25)
[2017-12-28] MEDS: WARFARIN 5 MG TABLET PO SCH (18:17)
[2017-12-29] MEDS: ALBUTEROL 2.5 MG/3 ML NEB RESP TX SCH ×4 (00:16→19:39)
[2017-12-29] MEDS: methylPREDNISolone SOD SUC 40 MG/1 ML VIAL IV SCH ×3 (02:15→18:04)
[2017-12-29 03:37] LABS: INR 1.8; PT Patient Result 18.8 SECS
[2017-12-29] MEDS: MULTIVITAMIN (BEROCCA) TABLET PO SCH ×2 (09:41→09:53)
[2017-12-29] MEDS: DILTIAZEM CD 120 MG CAPSULE PO SCH (09:41)
[2017-12-29] MEDS: METOPROLOL TARTRATE 50 MG TABLET PO SCH ×2 (09:41→21:08)
[2017-12-29] MEDS: THEOPHYLLINE ER (24 HR) 400 MG CAPSULE PO SCH (09:41)
[2017-12-29] MEDS: OXYBUTYNIN XL 10 MG TABLET PO SCH ×2 (09:41→09:53)
[2017-12-29] MEDS: MAGNESIUM OXIDE 400 MG TABLET PO SCH ×3 (09:41→21:20)
[2017-12-29] MEDS: FLUTICASONE 50 MCG NASAL SPRAY 16 GM BOTTLE BOTH NARES SCH ×2 (09:41→21:09)
[2017-12-29] MEDS: LACTOBACILLUS ACIDOPHILUS/BULGARICUS CAPLET PO SCH (09:41)
[2017-12-29] MEDS: PANTOPRAZOLE 40 MG TABLET PO SCH (09:41)
[2017-12-29] MEDS: PREGABALIN 50 MG CAPSULE PO SCH ×2 (09:41→09:52)
[2017-12-29] MEDS: MUPIROCIN 2% OINT 22 GM TUBE TOP SCH (09:42)
[2017-12-29] MEDS: INSULIN LISPRO 100 UNIT/ML SUBCUT SCH ×4 (09:42→21:08)
[2017-12-29] MEDS: INSULIN ASPART PROTAMINE/ASPART 70/30 100 UNIT/ML SUBCUT SCH ×2 (09:42→18:05)
[2017-12-29] MEDS: SKIN HEALING OINT (AQUAPHOR) 50 GM TUBE TOP SCH (09:43)
[2017-12-29] MEDS: CLOTRIMAZOLE 1% CREAM 15 GM TUBE TOP SCH ×2 (09:43→21:09)
[2017-12-29 11:15] LABS: Calcium 9.3 MG/DL (8.5-10.1); Osmolality,Calculated 312.8 MOS/KG (273-304); Potassium 4.6 MMOL/L (3.5-5.1)
[2017-12-29] MEDS: WARFARIN 5 MG TABLET PO SCH (18:04)
[2017-12-30] MEDS: ALBUTEROL 2.5 MG/3 ML NEB RESP TX SCH ×4 (00:14→19:27)
[2017-12-30] MEDS: methylPREDNISolone SOD SUC 40 MG/1 ML VIAL IV SCH ×3 (01:50→17:21)
[2017-12-30 03:27] LABS: Calcium 9.5 MG/DL (8.5-10.1); Osmolality,Calculated 309.5 MOS/KG (273-304); Potassium 4.8 MMOL/L (3.5-5.1)
[2017-12-30] MEDS: INSULIN ASPART PROTAMINE/ASPART 70/30 100 UNIT/ML SUBCUT SCH ×2 (08:38→17:21)
[2017-12-30] MEDS: PANTOPRAZOLE 40 MG TABLET PO SCH (08:39)
[2017-12-30] MEDS: INSULIN LISPRO 100 UNIT/ML SUBCUT SCH ×3 (08:39→17:21)
[2017-12-30] MEDS: LACTOBACILLUS ACIDOPHILUS/BULGARICUS CAPLET PO SCH (08:39)
[2017-12-30] MEDS: THEOPHYLLINE ER (24 HR) 400 MG CAPSULE PO SCH (08:39)
[2017-12-30] MEDS: PREGABALIN 50 MG CAPSULE PO SCH (08:39)
[2017-12-30] MEDS: METOPROLOL TARTRATE 50 MG TABLET PO SCH (08:39)
[2017-12-30] MEDS: DILTIAZEM CD 120 MG CAPSULE PO SCH (08:40)
[2017-12-30] MEDS: OXYBUTYNIN XL 10 MG TABLET PO SCH (08:42)
[2017-12-30] MEDS: MULTIVITAMIN (BEROCCA) TABLET PO SCH (08:42)
[2017-12-30] MEDS: SKIN HEALING OINT (AQUAPHOR) 50 GM TUBE TOP SCH (08:43)
[2017-12-30] MEDS: FLUTICASONE 50 MCG NASAL SPRAY 16 GM BOTTLE BOTH NARES SCH (08:44)
[2017-12-30] MEDS: CLOTRIMAZOLE 1% CREAM 15 GM TUBE TOP SCH (08:44)
[2017-12-30] MEDS: MAGNESIUM OXIDE 400 MG TABLET PO SCH (08:44)
[2017-12-30] MEDS: MUPIROCIN 2% OINT 22 GM TUBE TOP SCH (08:44)
[2017-12-30] MEDS: ACETAMINOPHEN 325 MG TABLET PO PRN (14:43)
[2017-12-30] MEDS: WARFARIN 5 MG TABLET PO SCH (17:21)
[2017-12-31] MEDS: INSULIN LISPRO 100 UNIT/ML SUBCUT SCH ×5 (00:34→20:01)
[2017-12-31] MEDS: FLUTICASONE 50 MCG NASAL SPRAY 16 GM BOTTLE BOTH NARES SCH ×3 (00:34→20:02)
[2017-12-31] MEDS: METOPROLOL TARTRATE 50 MG TABLET PO SCH ×3 (00:35→20:01)
[2017-12-31] MEDS: CLOTRIMAZOLE 1% CREAM 15 GM TUBE TOP SCH ×3 (00:35→20:02)
[2017-12-31] MEDS: methylPREDNISolone SOD SUC 40 MG/1 ML VIAL IV SCH ×3 (00:35→16:39)
[2017-12-31] MEDS: ALBUTEROL 2.5 MG/3 ML NEB RESP TX SCH ×4 (01:27→19:12)
[2017-12-31] MEDS: ACETAMINOPHEN 325 MG TABLET PO PRN (01:34)
[2017-12-31 04:25] LABS: INR 1.8; PT Patient Result 18.8 SECS
[2017-12-31 04:45] LABS: Calcium 9.4 MG/DL (8.5-10.1); Osmolality,Calculated 315.5 MOS/KG (273-304); Potassium 4.8 MMOL/L (3.5-5.1)
[2017-12-31] MEDS: LACTOBACILLUS ACIDOPHILUS/BULGARICUS CAPLET PO SCH (08:43)
[2017-12-31] MEDS: PREGABALIN 50 MG CAPSULE PO SCH (08:44)
[2017-12-31] MEDS: PANTOPRAZOLE 40 MG TABLET PO SCH (08:44)
[2017-12-31] MEDS: OXYBUTYNIN XL 10 MG TABLET PO SCH (08:44)
[2017-12-31] MEDS: MULTIVITAMIN (BEROCCA) TABLET PO SCH (08:44)
[2017-12-31] MEDS: THEOPHYLLINE ER (24 HR) 400 MG CAPSULE PO SCH (08:44)
[2017-12-31] MEDS: INSULIN ASPART PROTAMINE/ASPART 70/30 100 UNIT/ML SUBCUT SCH ×2 (08:45→16:39)
[2017-12-31] MEDS: DILTIAZEM CD 120 MG CAPSULE PO SCH (08:45)
[2017-12-31] MEDS: SKIN HEALING OINT (AQUAPHOR) 50 GM TUBE TOP SCH (08:55)
[2017-12-31] MEDS: MUPIROCIN 2% OINT 22 GM TUBE TOP SCH (08:55)
[2017-12-31] MEDS: WARFARIN 5 MG TABLET PO SCH (18:30)
[2018-01-01] MEDS: methylPREDNISolone SOD SUC 40 MG/1 ML VIAL IV SCH ×2 (00:07→08:15)
[2018-01-01] MEDS: ALBUTEROL 2.5 MG/3 ML NEB RESP TX SCH ×2 (00:48→07:33)
[2018-01-01 03:36] LABS: INR 1.7; PT Patient Result 17.4 SECS
[2018-01-01 03:42] LABS: Osmolality,Calculated 325.4 MOS/KG (273-304); Potassium 4.4 MMOL/L (3.5-5.1)
[2018-01-01] MEDS: ACETAMINOPHEN 325 MG TABLET PO PRN (05:48)
[2018-01-01] MEDS: INSULIN LISPRO 100 UNIT/ML SUBCUT SCH ×2 (08:03→12:07)
[2018-01-01] MEDS: INSULIN ASPART PROTAMINE/ASPART 70/30 100 UNIT/ML SUBCUT SCH (08:03)
[2018-01-01] MEDS: MULTIVITAMIN (BEROCCA) TABLET PO SCH (08:15)
[2018-01-01] MEDS: LACTOBACILLUS ACIDOPHILUS/BULGARICUS CAPLET PO SCH (08:15)
[2018-01-01] MEDS: THEOPHYLLINE ER (24 HR) 400 MG CAPSULE PO SCH (08:15)
[2018-01-01] MEDS: OXYBUTYNIN XL 10 MG TABLET PO SCH (08:15)
[2018-01-01] MEDS: PANTOPRAZOLE 40 MG TABLET PO SCH (08:16)
[2018-01-01] MEDS: PREGABALIN 50 MG CAPSULE PO SCH (08:16)
[2018-01-01] MEDS: MUPIROCIN 2% OINT 22 GM TUBE TOP SCH (08:16)
[2018-01-01] MEDS: DILTIAZEM CD 120 MG CAPSULE PO SCH (08:16)
[2018-01-01] MEDS: SKIN HEALING OINT (AQUAPHOR) 50 GM TUBE TOP SCH (08:16)
[2018-01-01] MEDS: FLUTICASONE 50 MCG NASAL SPRAY 16 GM BOTTLE BOTH NARES SCH (08:16)
[2018-01-01 08:17] VITALS: BP 140/103
[2018-01-01] MEDS: CLOTRIMAZOLE 1% CREAM 15 GM TUBE TOP SCH (08:17)
[2018-01-01] MEDS: METOPROLOL TARTRATE 50 MG TABLET PO SCH (08:18)
[2018-01-01] MEDS ORDERED: methylPREDNISolone SOD SUC 40 MG/1 ML VIAL IV SCH (20:00)
== END 2018-01-01 12:25 | DRG 264 ==
LOC: N.ED 15:10 → N.EDINP 19:24 → SUATTDRO 19:24 → N.2E 21:14 → N.CC 12-18 15:01
PROVIDERS: ADMIT Hospitalist; ATTEND Internal Medicine

== ENCOUNTER 2018-06-01 15:09 | Inpatient (IN) ==
[2018-06-01] MEDS ORDERED: ALBUTEROL 2.5 MG/3 ML NEB RESP TX STA (15:33)
[2018-06-01] MEDS ORDERED: methylPREDNISolone SOD SUC 40 MG/1 ML VIAL IV STA (15:33)
[2018-06-01 16:13] LABS: Basophils % 0.6 % (0.0-0.8); Eosinophils # 0.3 10*3/uL (0.0-0.87); Hemoglobin 11.6 GM/DL (14.0-18.0); Immature Granulocytes % 0.3 %; Immature Granulocytes Absolute 0.02 #; Lymphocytes % 16.5 % (21.2-54.2); Mean Corpuscular HGB Conc 31.4 GM/DL (32-36); Mean Corpuscular Hemoglobin 27 PG (27-34); Mean Corpuscular Volume 86.4 FL (87-102); Mean Platelet Volume 9.7 FL (9.6-12.0); Monocytes # 0.6 10*3/uL (0.11-0.8); Monocytes % 9.2 % (1.7-12.7); Neutrophils # 4.2 10*3/uL (1.4-7.4); Neutrophils % 68.4 % (38.7-73.9); Platelet Count 230 T/CUMM (130-400); Red Blood Count 4.28 MC/CUMM (3.8-5.5); Red Cell Distribution Width 17.2 % (9.3-17.3); White Blood Count 6.2 T/CUMM (4-12)
[2018-06-01 16:26] LABS: INR 3.8
[2018-06-01 16:38] LABS: Albumin 3.2 G/DL (3.4-5.0); Bilirubin,Total 0.7 MG/DL (0.2-1.0); Calcium 8.9 MG/DL (8.5-10.1); Osmolality,Calculated 304.3 MOS/KG (273-304)
[2018-06-01] MEDS ORDERED: FUROSEMIDE 40 MG/4 ML VIAL IV STA (17:20)
[2018-06-01] MEDS ORDERED: ONDANSETRON 4 MG/2 ML VIAL IV PRN (17:41)
[2018-06-01] MEDS ORDERED: DOCUSATE SODIUM 100 MG CAPSULE PO PRN (17:41)
[2018-06-01] MEDS ORDERED: ACETAMINOPHEN 325 MG TABLET PO PRN (17:41)
[2018-06-01] MEDS ORDERED: traZODone 50 MG TABLET PO PRN (17:41)
[2018-06-01 18:00] LABS: Apearance,Urine CLEAR (Clear); Bilirubin,Urine Negative (Negative); Blood, Urine Small mg/dL (Negative); Glucose,Urine (UA) Negative (Negative); Hyaline Casts,Urine 7 /LPF (0-3); Ketones,Urine Negative (Negative); Mucus,Urine Occasional /LPF (Occasional); Nitrite,Urine Negative (Negative); Protein,Urine 30 MG/DL; RBC,Urine 4 /HPF (0-4); Squamous Epithelial Cell,Urine Occasional /HPF (0-10); Urine Color Yellow (Yellow); Urine Urobilinogen < 2.0 EU/DL (0.2-1.0); WBC,Urine <1 /HPF (0-6)
[2018-06-01] MEDS: ALBUTEROL/IPRATROPIUM 3 ML NEB RESP TX SCH ×2 (19:44→23:25)
[2018-06-01] MEDS ORDERED: DEXTROSE 50% 25 GM/50 ML VIAL IV PRN (20:35)
[2018-06-01] MEDS ORDERED: GLUCAGON 1 MG VIAL IM PRN (20:35)
[2018-06-01] MEDS ORDERED: FUROSEMIDE 40 MG/4 ML VIAL IV SCH (21:00)
[2018-06-01] MEDS: ENOXAPARIN 30 MG/0.3 ML SYRINGE SUBCUT SCH (21:38)
[2018-06-01] MEDS: OXYBUTYNIN 5 MG TABLET PO SCH (21:38)
[2018-06-01] MEDS: PREGABALIN 50 MG CAPSULE PO SCH (21:38)
[2018-06-01] MEDS: METOPROLOL TARTRATE 25 MG TABLET PO SCH (21:38)
[2018-06-01] MEDS: MELATONIN 3 MG TABLET PO SCH (21:38)
[2018-06-01] MEDS: INSULIN REGULAR 100 UNIT/ML SUBCUT SCH ×2 (21:55→23:33)
[2018-06-02] MEDS: ALBUTEROL/IPRATROPIUM 3 ML NEB RESP TX SCH ×5 (03:38→19:57)
[2018-06-02 04:39] LABS: Basophils % 0.2 % (0.0-0.8); Eosinophils % 0.2 % (0.00-10.9); Hematocrit 39.5 VOL% (42.0-52.0); Hemoglobin 12.5 GM/DL (14.0-18.0); Immature Granulocytes % 0.2 %; Immature Granulocytes Absolute 0.01 #; Lymphocytes # 0.7 10*3/uL (1.4-4.0); Lymphocytes % 13.2 % (21.2-54.2); Mean Corpuscular HGB Conc 31.6 GM/DL (32-36); Mean Corpuscular Hemoglobin 28 PG (27-34); Mean Corpuscular Volume 86.8 FL (87-102); Mean Platelet Volume 10.2 FL (9.6-12.0); Monocytes # 0.1 10*3/uL (0.11-0.8); Monocytes % 2.2 % (1.7-12.7); Neutrophils # 4.1 10*3/uL (1.4-7.4); Platelet Count 234 T/CUMM (130-400); Red Blood Count 4.55 MC/CUMM (3.8-5.5); Red Cell Distribution Width 16.9 % (9.3-17.3); White Blood Count 4.9 T/CUMM (4-12)
[2018-06-02 05:02] LABS: Calcium 9.5 MG/DL (8.5-10.1); Osmolality,Calculated 297.7 MOS/KG (273-304)
[2018-06-02] MEDS: INSULIN REGULAR 100 UNIT/ML SUBCUT SCH ×4 (06:25→23:24)
[2018-06-02] MEDS ORDERED: INSULIN NPH/REGULAR 70/30 100 UNIT/ML SUBCUT SCH (07:30)
[2018-06-02 07:59] LABS: INR 3.5
[2018-06-02] MEDS ORDERED: hydrALAZINE 10 MG TABLET PO PRN (08:17)
[2018-06-02 08:25] LABS: PT Patient Result 37.1 SECS
[2018-06-02] MEDS ORDERED: DILTIAZEM CD 240 MG CAPSULE PO SCH ×2 (09:00)
[2018-06-02] MEDS: OXYBUTYNIN 5 MG TABLET PO SCH (09:25)
[2018-06-02] MEDS: PANTOPRAZOLE 40 MG TABLET PO SCH (09:25)
[2018-06-02] MEDS: METOPROLOL TARTRATE 25 MG TABLET PO SCH (09:25)
[2018-06-02] MEDS: PREGABALIN 50 MG CAPSULE PO SCH ×3 (09:25→22:35)
[2018-06-02] MEDS: CETIRIZINE 10 MG TABLET PO SCH (09:25)
[2018-06-02] MEDS: FUROSEMIDE 40 MG/4 ML VIAL IV SCH ×2 (09:26→22:36)
[2018-06-02] MEDS ORDERED: METOPROLOL TARTRATE 25 MG TABLET PO ONE (09:32)
[2018-06-02] MEDS: INSULIN NPH/REGULAR 70/30 100 UNIT/ML SUBCUT SCH (19:02)
[2018-06-02] MEDS: METOPROLOL TARTRATE 50 MG TABLET PO SCH (22:35)
[2018-06-02] MEDS: MELATONIN 3 MG TABLET PO SCH (22:35)
[2018-06-02] MEDS: ENOXAPARIN 30 MG/0.3 ML SYRINGE SUBCUT SCH (22:53)
[2018-06-03] MEDS: ALBUTEROL/IPRATROPIUM 3 ML NEB RESP TX SCH ×4 (00:29→11:14)
[2018-06-03 04:26] LABS: Basophils % 0.2 % (0.0-0.8); Eosinophils # 0.1 10*3/uL (0.0-0.87); Eosinophils % 0.6 % (0.00-10.9); Hematocrit 36.3 VOL% (42.0-52.0); Hemoglobin 11.6 GM/DL (14.0-18.0); Immature Granulocytes % 0.3 %; Immature Granulocytes Absolute 0.03 #; Lymphocytes % 11.1 % (21.2-54.2); Mean Corpuscular Hemoglobin 28 PG (27-34); Mean Platelet Volume 9.8 FL (9.6-12.0); Monocytes # 0.8 10*3/uL (0.11-0.8); Monocytes % 8.7 % (1.7-12.7); Neutrophils # 6.9 10*3/uL (1.4-7.4); Neutrophils % 79.1 % (38.7-73.9); Platelet Count 226 T/CUMM (130-400); Red Blood Count 4.22 MC/CUMM (3.8-5.5); Red Cell Distribution Width 17.1 % (9.3-17.3); White Blood Count 8.7 T/CUMM (4-12)
[2018-06-03 04:52] LABS: INR 3.6
[2018-06-03 05:07] LABS: Calcium 9.4 MG/DL (8.5-10.1); Osmolality,Calculated 283.8 MOS/KG (273-304); Potassium 3.9 MMOL/L (3.5-5.1)
[2018-06-03 05:23] LABS: PT Patient Result 39.1 SECS
[2018-06-03] MEDS: INSULIN REGULAR 100 UNIT/ML SUBCUT SCH (06:35)
[2018-06-03 08:19] VITALS: BP 136/92
[2018-06-03] MEDS: INSULIN NPH/REGULAR 70/30 100 UNIT/ML SUBCUT SCH (08:26)
[2018-06-03] MEDS: CETIRIZINE 10 MG TABLET PO SCH (08:35)
[2018-06-03] MEDS: PANTOPRAZOLE 40 MG TABLET PO SCH (08:35)
[2018-06-03] MEDS: PREGABALIN 50 MG CAPSULE PO SCH (08:35)
[2018-06-03] MEDS: METOPROLOL TARTRATE 50 MG TABLET PO SCH (08:35)
[2018-06-03] MEDS ORDERED: DILTIAZEM CD 180 MG CAPSULE PO SCH (09:00)
[2018-06-03] MEDS ORDERED: FUROSEMIDE 80 MG TABLET PO SCH (09:00)
== END 2018-06-03 13:34 | disposition home or self-care (01) | DRG 291 ==
LOC: N.ED 15:09 → SUATTDRO 17:41 → N.EDINP 17:41 → N.5E 18:18
PROVIDERS: ADMIT Emergency Medicine; ATTEND Internal Medicine

== ENCOUNTER 2018-06-18 18:16 | Inpatient (IN) ==
[2018-06-18] MEDS ORDERED: methylPREDNISolone SOD SUC 125 MG/2 ML VIAL IV STA (18:50)
[2018-06-18] MEDS ORDERED: ASPIRIN 325 MG TABLET PO STA (18:50)
[2018-06-18] MEDS ORDERED: FUROSEMIDE 100 MG/10 ML VIAL IV STA (18:50)
[2018-06-18] MEDS ORDERED: ALBUTEROL/IPRATROPIUM 3 ML NEB RESP TX STA (18:50)
[2018-06-18] MEDS ORDERED: ONDANSETRON 4 MG/2 ML VIAL IV STA (18:50)
[2018-06-18] MEDS ORDERED: MORPHINE 4 MG/1 ML VIAL IV STA (18:50)
[2018-06-18 18:57] LABS: Basophils # 0.1 10*3/uL (0.0-0.2); Basophils % 0.8 % (0.0-0.8); Eosinophils # 0.5 10*3/uL (0.0-0.87); Eosinophils % 6.6 % (0.00-10.9); Hematocrit 40.6 VOL% (42.0-52.0); Hemoglobin 12.6 GM/DL (14.0-18.0); Immature Granulocytes % 0.4 %; Immature Granulocytes Absolute 0.03 #; Lymphocytes # 1.5 10*3/uL (1.4-4.0); Lymphocytes % 18.6 % (21.2-54.2); Mean Corpuscular Hemoglobin 27 PG (27-34); Mean Corpuscular Volume 87.5 FL (87-102); Mean Platelet Volume 10.8 FL (9.6-12.0); Monocytes # 0.7 10*3/uL (0.11-0.8); Neutrophils # 5.1 10*3/uL (1.4-7.4); Neutrophils % 64.6 % (38.7-73.9); Platelet Count 252 T/CUMM (130-400); Red Blood Count 4.64 MC/CUMM (3.8-5.5); Red Cell Distribution Width 17.7 % (9.3-17.3); White Blood Count 7.9 T/CUMM (4-12)
[2018-06-18 19:09] LABS: INR 3.2
[2018-06-18 19:14] LABS: PT Patient Result 34.8 SECS
[2018-06-18 19:18] LABS: Albumin 3.6 G/DL (3.4-5.0); Bilirubin,Total 0.8 MG/DL (0.2-1.0); Calcium 9.4 MG/DL (8.5-10.1); Osmolality,Calculated 297.5 MOS/KG (273-304); Potassium 5.7 MMOL/L (3.5-5.1)
[2018-06-18] MEDS ORDERED: CALCIUM CHLORIDE 1,000 MG/10 ML SYRINGE IV STA (19:31)
[2018-06-18] MEDS ORDERED: SODIUM POLYSTYRENE SULFATE 15 GM/60 ML BOTTLE PO STA (19:31)
[2018-06-18 20:11] LABS: Apearance,Urine CLEAR (Clear); Bacteria,Urine Few /HPF (Few); Bilirubin,Urine Negative (Negative); Blood, Urine Small mg/dL (Negative); Glucose,Urine (UA) Negative (Negative); Hyaline Casts,Urine 51 /LPF (0-3); Ketones,Urine Negative (Negative); Mucus,Urine Occasional /LPF (Occasional); Nitrite,Urine Negative (Negative); Protein,Urine 30 MG/DL; RBC,Urine 9 /HPF (0-4); Squamous Epithelial Cell,Urine Occasional /HPF (0-10); Urine Color Yellow (Yellow); Urine Urobilinogen < 2.0 EU/DL (0.2-1.0); WBC,Urine 13 /HPF (0-6)
[2018-06-18] MEDS ORDERED: ZALEPLON 5 MG CAPSULE PO PRN (21:10)
[2018-06-18] MEDS ORDERED: DEXTROSE 50% 25 GM/50 ML SYRINGE IV PRN (21:10)
[2018-06-18] MEDS ORDERED: ONDANSETRON 4 MG/2 ML VIAL IV PRN (21:10)
[2018-06-18] MEDS ORDERED: DOCUSATE SODIUM 100 MG CAPSULE PO PRN (21:10)
[2018-06-18] MEDS ORDERED: GLUCAGON 1 MG VIAL IM PRN (21:10)
[2018-06-18] MEDS ORDERED: ALBUTEROL 2.5 MG/3 ML NEB RESP TX PRN (21:14)
[2018-06-18] MEDS ORDERED: SODIUM CHLORIDE 0.65% NASAL SPRAY 45 ML BOTTLE BOTH NARES PRN (21:14)
[2018-06-18] MEDS ORDERED: ALBUTEROL/IPRATROPIUM 3 ML NEB RESP TX PRN (21:24)
[2018-06-18] MEDS: INSULIN REGULAR 100 UNIT/ML SUBCUT SCH (23:42)
[2018-06-18] MEDS: PREGABALIN 50 MG CAPSULE PO SCH (23:42)
[2018-06-19] MEDS: FUROSEMIDE 100 MG/10 ML VIAL IV SCH ×4 (02:27→20:26)
[2018-06-19 05:52] LABS: Basophils % 0.2 % (0.0-0.8); Hematocrit 41.1 VOL% (42.0-52.0); Hemoglobin 12.9 GM/DL (14.0-18.0); Immature Granulocytes % 0.2 %; Immature Granulocytes Absolute 0.01 #; Lymphocytes # 0.5 10*3/uL (1.4-4.0); Lymphocytes % 10.3 % (21.2-54.2); Mean Corpuscular HGB Conc 31.4 GM/DL (32-36); Mean Corpuscular Hemoglobin 27 PG (27-34); Mean Corpuscular Volume 87.1 FL (87-102); Mean Platelet Volume 10.1 FL (9.6-12.0); Monocytes # 0.1 10*3/uL (0.11-0.8); Monocytes % 1.6 % (1.7-12.7); Neutrophils # 3.9 10*3/uL (1.4-7.4); Neutrophils % 87.7 % (38.7-73.9); Platelet Count 255 T/CUMM (130-400); Red Blood Count 4.72 MC/CUMM (3.8-5.5); Red Cell Distribution Width 17.3 % (9.3-17.3); White Blood Count 4.5 T/CUMM (4-12)
[2018-06-19 06:12] LABS: Calcium 9.7 MG/DL (8.5-10.1); Potassium 4.6 MMOL/L (3.5-5.1)
[2018-06-19] MEDS: IPRATROPIUM 500 MCG/2.5 ML NEB RESP TX SCH ×4 (07:48→18:50)
[2018-06-19] MEDS ORDERED: INSULIN NPH/REGULAR 70/30 100 UNIT/ML SUBCUT SCH (08:00)
[2018-06-19] MEDS: METOPROLOL TARTRATE 50 MG TABLET PO SCH ×2 (09:12→20:26)
[2018-06-19] MEDS: PREGABALIN 50 MG CAPSULE PO SCH ×3 (09:12→20:26)
[2018-06-19] MEDS: DILTIAZEM CD 180 MG CAPSULE PO SCH (09:12)
[2018-06-19] MEDS: MULTIVITAMIN (BEROCCA) TABLET PO SCH (09:12)
[2018-06-19] MEDS: PANTOPRAZOLE 40 MG TABLET PO SCH (09:12)
[2018-06-19] MEDS: INSULIN REGULAR 100 UNIT/ML SUBCUT SCH ×4 (09:13→20:27)
[2018-06-19] MEDS: cefTRIAXone 1,000 MG in SYRINGE 1 EACH IV SCH (14:34)
[2018-06-19] MEDS: methylPREDNISolone SOD SUC 40 MG/1 ML VIAL IV SCH (16:59)
[2018-06-19] MEDS: INSULIN NPH/REGULAR 70/30 100 UNIT/ML SUBCUT SCH (17:00)
[2018-06-19 17:43] LABS: INR 4.4
[2018-06-19 17:45] LABS: PT Patient Result 47.5 SECS
[2018-06-19] MEDS ORDERED: WARFARIN 7.5 MG TABLET PO SCH (18:00)
[2018-06-20] MEDS: methylPREDNISolone SOD SUC 40 MG/1 ML VIAL IV SCH ×3 (01:01→16:57)
[2018-06-20] MEDS: FUROSEMIDE 100 MG/10 ML VIAL IV SCH ×4 (01:01→21:14)
[2018-06-20 04:55] LABS: Basophils % 0.1 % (0.0-0.8); Hematocrit 39.2 VOL% (42.0-52.0); Hemoglobin 12.3 GM/DL (14.0-18.0); Immature Granulocytes % 0.4 %; Immature Granulocytes Absolute 0.03 #; Lymphocytes # 0.6 10*3/uL (1.4-4.0); Lymphocytes % 8.3 % (21.2-54.2); Mean Corpuscular HGB Conc 31.4 GM/DL (32-36); Mean Corpuscular Hemoglobin 27 PG (27-34); Mean Corpuscular Volume 85.6 FL (87-102); Mean Platelet Volume 10.5 FL (9.6-12.0); Monocytes # 0.3 10*3/uL (0.11-0.8); Monocytes % 3.7 % (1.7-12.7); Neutrophils # 6.1 10*3/uL (1.4-7.4); Neutrophils % 87.5 % (38.7-73.9); Platelet Count 263 T/CUMM (130-400); Red Blood Count 4.58 MC/CUMM (3.8-5.5); Red Cell Distribution Width 17.2 % (9.3-17.3)
[2018-06-20 05:15] LABS: PT Patient Result 53.1 SECS
[2018-06-20 05:22] LABS: Calcium 9.3 MG/DL (8.5-10.1); Osmolality,Calculated 291.2 MOS/KG (273-304); Potassium 4.7 MMOL/L (3.5-5.1)
[2018-06-20] MEDS: IPRATROPIUM 500 MCG/2.5 ML NEB RESP TX SCH ×4 (07:23→19:03)
[2018-06-20] MEDS: INSULIN REGULAR 100 UNIT/ML SUBCUT SCH ×4 (08:27→21:13)
[2018-06-20] MEDS: INSULIN NPH/REGULAR 70/30 100 UNIT/ML SUBCUT SCH ×2 (08:35→16:58)
[2018-06-20] MEDS: DILTIAZEM CD 180 MG CAPSULE PO SCH (09:11)
[2018-06-20] MEDS: METOPROLOL TARTRATE 50 MG TABLET PO SCH ×2 (09:11→21:13)
[2018-06-20] MEDS: MULTIVITAMIN (BEROCCA) TABLET PO SCH (09:11)
[2018-06-20] MEDS: PREGABALIN 50 MG CAPSULE PO SCH ×3 (09:11→21:13)
[2018-06-20] MEDS: PANTOPRAZOLE 40 MG TABLET PO SCH (09:11)
[2018-06-20] MEDS: cefTRIAXone 1,000 MG in SYRINGE 1 EACH IV SCH (14:18)
[2018-06-20] MEDS ORDERED: WARFARIN 5 MG TABLET PO SCH (18:00)
[2018-06-21] MEDS: FUROSEMIDE 100 MG/10 ML VIAL IV SCH ×4 (01:06→20:37)
[2018-06-21] MEDS: methylPREDNISolone SOD SUC 40 MG/1 ML VIAL IV SCH ×3 (01:06→16:34)
[2018-06-21] MEDS: IPRATROPIUM 500 MCG/2.5 ML NEB RESP TX SCH ×4 (07:13→19:57)
[2018-06-21] MEDS: INSULIN REGULAR 100 UNIT/ML SUBCUT SCH ×4 (07:46→20:37)
[2018-06-21] MEDS: DILTIAZEM CD 180 MG CAPSULE PO SCH (08:31)
[2018-06-21] MEDS: METOPROLOL TARTRATE 50 MG TABLET PO SCH ×2 (08:31→20:36)
[2018-06-21] MEDS: PREGABALIN 50 MG CAPSULE PO SCH ×3 (08:31→20:37)
[2018-06-21] MEDS: MULTIVITAMIN (BEROCCA) TABLET PO SCH (08:31)
[2018-06-21] MEDS: PANTOPRAZOLE 40 MG TABLET PO SCH (08:31)
[2018-06-21] MEDS: INSULIN NPH/REGULAR 70/30 100 UNIT/ML SUBCUT SCH ×2 (08:32→16:35)
[2018-06-21 08:50] LABS: INR 2.5
[2018-06-21 08:51] LABS: PT Patient Result 26.6 SECS
[2018-06-21] MEDS: cefTRIAXone 1,000 MG in SYRINGE 1 EACH IV SCH (13:35)
[2018-06-22] MEDS: methylPREDNISolone SOD SUC 40 MG/1 ML VIAL IV SCH ×2 (01:09→12:08)
[2018-06-22] MEDS: FUROSEMIDE 100 MG/10 ML VIAL IV SCH ×3 (01:10→14:00)
[2018-06-22 06:33] LABS: Hematocrit 38.9 VOL% (42.0-52.0); Hemoglobin 12.5 GM/DL (14.0-18.0); Immature Granulocytes % 0.4 %; Immature Granulocytes Absolute 0.02 #; Lymphocytes # 0.3 10*3/uL (1.4-4.0); Mean Corpuscular HGB Conc 32.1 GM/DL (32-36); Mean Corpuscular Hemoglobin 27 PG (27-34); Mean Corpuscular Volume 84.2 FL (87-102); Mean Platelet Volume 10.7 FL (9.6-12.0); Monocytes # 0.3 10*3/uL (0.11-0.8); Monocytes % 5.2 % (1.7-12.7); Neutrophils # 4.8 10*3/uL (1.4-7.4); Neutrophils % 89.4 % (38.7-73.9); Platelet Count 260 T/CUMM (130-400); Red Blood Count 4.62 MC/CUMM (3.8-5.5); Red Cell Distribution Width 16.9 % (9.3-17.3); White Blood Count 5.4 T/CUMM (4-12)
[2018-06-22] MEDS: IPRATROPIUM 500 MCG/2.5 ML NEB RESP TX SCH ×2 (07:36→11:55)
[2018-06-22 07:53] LABS: Calcium 8.7 MG/DL (8.5-10.1); Osmolality,Calculated 301.2 MOS/KG (273-304); Potassium 4.2 MMOL/L (3.5-5.1)
[2018-06-22] MEDS: DILTIAZEM CD 180 MG CAPSULE PO SCH (08:24)
[2018-06-22] MEDS: MULTIVITAMIN (BEROCCA) TABLET PO SCH (08:24)
[2018-06-22] MEDS: PANTOPRAZOLE 40 MG TABLET PO SCH (08:25)
[2018-06-22] MEDS: METOPROLOL TARTRATE 50 MG TABLET PO SCH (08:25)
[2018-06-22] MEDS: PREGABALIN 50 MG CAPSULE PO SCH (08:25)
[2018-06-22] MEDS: INSULIN NPH/REGULAR 70/30 100 UNIT/ML SUBCUT SCH (08:26)
[2018-06-22] MEDS: INSULIN REGULAR 100 UNIT/ML SUBCUT SCH ×2 (08:26→12:27)
[2018-06-22 12:49] VITALS: BP 152/95
== END 2018-06-22 14:40 | disposition home or self-care (01) | DRG 291 ==
LOC: N.ED 18:16 → N.EDINP 21:10 → N.5E 22:07
PROVIDERS: ADMIT Internal Medicine; ATTEND Internal Medicine

== ENCOUNTER 2018-08-03 14:23 | Inpatient (IN) ==
[2018-08-03 15:02] LABS: Basophils % 0.5 % (0.0-0.8); Eosinophils # 0.1 10*3/uL (0.0-0.87); Eosinophils % 1.1 % (0.00-10.9); Hemoglobin 11.5 GM/DL (14.0-18.0); Immature Granulocytes % 0.5 %; Immature Granulocytes Absolute 0.03 #; Lymphocytes % 14.4 % (21.2-54.2); Mean Corpuscular HGB Conc 30.3 GM/DL (32-36); Mean Corpuscular Volume 87.2 FL (87-102); Mean Platelet Volume 9.8 FL (9.6-12.0); Monocytes % 11.2 % (1.7-12.7); Neutrophils % 72.3 % (38.7-73.9); Platelet Count 302 T/CUMM (130-400); Red Blood Count 4.36 MC/CUMM (3.8-5.5); White Blood Count 6.6 T/CUMM (4-12)
[2018-08-03 15:10] LABS: Partial Thromboplastin Time 29.4 SECS (0-40)
[2018-08-03 15:27] LABS: Albumin 3.1 G/DL (3.4-5.0); Bilirubin,Total 0.4 MG/DL (0.2-1.0); Calcium 8.5 MG/DL (8.5-10.1); Osmolality,Calculated 292.3 MOS/KG (273-304)
[2018-08-03 15:30] LABS: PT Patient Result 21.4 SECS
[2018-08-03] MEDS ORDERED: FUROSEMIDE 40 MG/4 ML VIAL IV STA (18:33)
[2018-08-03] MEDS ORDERED: ONDANSETRON 4 MG/2 ML VIAL IV PRN (19:37)
[2018-08-03] MEDS ORDERED: ACETAMINOPHEN 325 MG TABLET PO PRN (19:37)
[2018-08-03] MEDS ORDERED: DEXTROSE 50% 25 GM/50 ML SYRINGE IV PRN (19:37)
[2018-08-03] MEDS ORDERED: GLUCAGON 1 MG VIAL IM PRN (19:37)
[2018-08-03] MEDS ORDERED: SODIUM CHLORIDE 0.65% NASAL SPRAY 45 ML BOTTLE BOTH NARES PRN (19:42)
[2018-08-03] MEDS ORDERED: ALBUTEROL 2.5 MG/3 ML NEB RESP TX PRN (19:42)
[2018-08-03] MEDS ORDERED: FUROSEMIDE 100 MG/10 ML VIAL IV ONE (19:44)
[2018-08-03] MEDS: INSULIN LISPRO 100 UNIT/ML SUBCUT SCH (21:21)
[2018-08-03] MEDS: PREGABALIN 50 MG CAPSULE PO SCH (23:35)
[2018-08-03] MEDS: METOPROLOL TARTRATE 50 MG TABLET PO SCH (23:35)
[2018-08-03] MEDS: MELATONIN 3 MG TABLET PO SCH (23:35)
[2018-08-04 04:31] LABS: Basophils % 0.5 % (0.0-0.8); Eosinophils # 0.1 10*3/uL (0.0-0.87); Eosinophils % 2.3 % (0.00-10.9); Hematocrit 37.1 VOL% (42.0-52.0); Hemoglobin 11.6 GM/DL (14.0-18.0); Immature Granulocytes % 0.7 %; Immature Granulocytes Absolute 0.04 #; Lymphocytes # 1.3 10*3/uL (1.4-4.0); Lymphocytes % 21.8 % (21.2-54.2); Mean Corpuscular HGB Conc 31.3 GM/DL (32-36); Mean Corpuscular Volume 85.5 FL (87-102); Mean Platelet Volume 10.5 FL (9.6-12.0); Monocytes % 11.6 % (1.7-12.7); Neutrophils % 63.1 % (38.7-73.9); Platelet Count 296 T/CUMM (130-400); Red Blood Count 4.34 MC/CUMM (3.8-5.5); Red Cell Distribution Width 18.1 % (9.3-17.3)
[2018-08-04 05:03] LABS: Albumin 3.2 G/DL (3.4-5.0); Bilirubin,Total 0.6 MG/DL (0.2-1.0); Calcium 8.2 MG/DL (8.5-10.1); Osmolality,Calculated 295.4 MOS/KG (273-304)
[2018-08-04] MEDS: IPRATROPIUM 500 MCG/2.5 ML NEB RESP TX SCH ×4 (07:06→20:03)
[2018-08-04] MEDS: INSULIN NPH/REGULAR 70/30 100 UNIT/ML SUBCUT SCH ×2 (09:22→16:44)
[2018-08-04] MEDS: METOPROLOL TARTRATE 50 MG TABLET PO SCH ×2 (09:23→20:04)
[2018-08-04] MEDS: INSULIN LISPRO 100 UNIT/ML SUBCUT SCH ×4 (09:23→20:14)
[2018-08-04] MEDS: PREGABALIN 50 MG CAPSULE PO SCH ×3 (09:24→20:04)
[2018-08-04] MEDS: PANTOPRAZOLE 40 MG TABLET PO SCH (09:24)
[2018-08-04] MEDS: FUROSEMIDE 100 MG/10 ML VIAL IV SCH ×2 (09:29→16:23)
[2018-08-04] MEDS: ACETAMINOPHEN/CODEINE 300-30 MG TABLET PO PRN ×2 (09:29→14:38)
[2018-08-04] MEDS: WARFARIN 5 MG TABLET PO SCH (17:15)
[2018-08-04] MEDS: MELATONIN 3 MG TABLET PO SCH (20:04)
[2018-08-05] MEDS ORDERED: METOPROLOL TARTRATE 5 MG/5 ML VIAL IV ONE (02:30)
[2018-08-05] MEDS: IPRATROPIUM 500 MCG/2.5 ML NEB RESP TX SCH (07:10)
[2018-08-05] MEDS: FUROSEMIDE 100 MG/10 ML VIAL IV SCH ×2 (07:50→15:43)
[2018-08-05] MEDS: INSULIN LISPRO 100 UNIT/ML SUBCUT SCH ×3 (08:43→17:36)
[2018-08-05] MEDS: INSULIN NPH/REGULAR 70/30 100 UNIT/ML SUBCUT SCH ×2 (09:03→17:36)
[2018-08-05] MEDS: PREGABALIN 50 MG CAPSULE PO SCH ×4 (09:04→20:01)
[2018-08-05] MEDS: METOPROLOL TARTRATE 50 MG TABLET PO SCH (09:04)
[2018-08-05] MEDS: PANTOPRAZOLE 40 MG TABLET PO SCH (09:05)
[2018-08-05 09:09] LABS: Basophils % 0.7 % (0.0-0.8); Eosinophils # 0.2 10*3/uL (0.0-0.87); Eosinophils % 3.2 % (0.00-10.9); Hematocrit 39.4 VOL% (42.0-52.0); Hemoglobin 12.3 GM/DL (14.0-18.0); Immature Granulocytes % 0.4 %; Immature Granulocytes Absolute 0.02 #; Lymphocytes # 1.1 10*3/uL (1.4-4.0); Lymphocytes % 20.1 % (21.2-54.2); Mean Corpuscular HGB Conc 31.2 GM/DL (32-36); Mean Platelet Volume 11.4 FL (9.6-12.0); Monocytes % 9.3 % (1.7-12.7); Neutrophils % 66.3 % (38.7-73.9); Platelet Count 225 T/CUMM (130-400); Red Blood Count 4.58 MC/CUMM (3.8-5.5); Red Cell Distribution Width 18.2 % (9.3-17.3); White Blood Count 5.6 T/CUMM (4-12)
[2018-08-05 09:29] LABS: Calcium 8.7 MG/DL (8.5-10.1)
[2018-08-05] MEDS ORDERED: MAGNESIUM SULF RIDER 4 GM in PREMIX 1 EACH IV PRN (10:03)
[2018-08-05] MEDS ORDERED: MAGNESIUM SULF RIDER 2 GM in PREMIX 1 EACH IV PRN (10:03)
[2018-08-05 10:46] LABS: INR 2.2
[2018-08-05 10:49] LABS: PT Patient Result 23.9 SECS
[2018-08-05 11:04] LABS: Hypochromasia 2+; Ovalocytes Few; Polychromasia Few; Target Cells Slight
[2018-08-05 11:05] LABS: Microcytosis 1+; Platelet Estimate Normal
[2018-08-05] MEDS: LEVALBUTEROL 0.63 MG/3 ML NEB RESP TX SCH ×4 (11:06→23:46)
[2018-08-05] MEDS: ACETAMINOPHEN/CODEINE 300-30 MG TABLET PO PRN (14:43)
[2018-08-05] MEDS: WARFARIN 5 MG TABLET PO SCH (17:37)
[2018-08-05] MEDS: MELATONIN 3 MG TABLET PO SCH ×2 (19:43→20:01)
[2018-08-05] MEDS: METOPROLOL TARTRATE 100 MG TABLET PO SCH (20:17)
[2018-08-06] MEDS: LEVALBUTEROL 0.63 MG/3 ML NEB RESP TX SCH ×6 (03:06→23:52)
[2018-08-06] MEDS: ACETAMINOPHEN/CODEINE 300-30 MG TABLET PO PRN ×3 (04:09→16:30)
[2018-08-06 04:39] LABS: Basophils % 0.6 % (0.0-0.8); Eosinophils # 0.2 10*3/uL (0.0-0.87); Eosinophils % 4.8 % (0.00-10.9); Hematocrit 38.8 VOL% (42.0-52.0); Hemoglobin 11.6 GM/DL (14.0-18.0); Immature Granulocytes % 0.2 %; Immature Granulocytes Absolute 0.01 #; Lymphocytes % 21.3 % (21.2-54.2); Mean Corpuscular HGB Conc 29.9 GM/DL (32-36); Mean Platelet Volume 10.8 FL (9.6-12.0); Monocytes % 12.4 % (1.7-12.7); Neutrophils % 60.7 % (38.7-73.9); Platelet Count 177 T/CUMM (130-400); Red Blood Count 4.31 MC/CUMM (3.8-5.5); Red Cell Distribution Width 18.4 % (9.3-17.3); White Blood Count 4.8 T/CUMM (4-12)
[2018-08-06 04:57] LABS: Calcium 8.5 MG/DL (8.5-10.1); Osmolality,Calculated 287.8 MOS/KG (273-304)
[2018-08-06 07:59] LABS: Eosinophils 4 % (0-10); Hypochromasia 1+; Lymphocytes 24 % (20-55); Ovalocytes Slight; Platelet Estimate Adequate; Segmented Neutrophils 65 % (50-85); Total Cells Counted 100
[2018-08-06 08:00] LABS: Microcytosis Slight
[2018-08-06] MEDS: INSULIN NPH/REGULAR 70/30 100 UNIT/ML SUBCUT SCH ×2 (09:38→16:17)
[2018-08-06] MEDS: METOPROLOL TARTRATE 100 MG TABLET PO SCH ×2 (09:40→21:08)
[2018-08-06] MEDS: DILTIAZEM 30 MG TABLET PO SCH ×3 (09:40→21:07)
[2018-08-06] MEDS: PREGABALIN 50 MG CAPSULE PO SCH ×3 (09:40→21:08)
[2018-08-06] MEDS: PANTOPRAZOLE 40 MG TABLET PO SCH (09:40)
[2018-08-06] MEDS: INSULIN LISPRO 100 UNIT/ML SUBCUT SCH ×3 (09:43→16:23)
[2018-08-06] MEDS: FUROSEMIDE 100 MG/10 ML VIAL IV SCH ×2 (09:44→16:19)
[2018-08-06] MEDS: WARFARIN 5 MG TABLET PO SCH (17:16)
[2018-08-06] MEDS: MELATONIN 3 MG TABLET PO SCH (21:07)
[2018-08-07] MEDS: LEVALBUTEROL 0.63 MG/3 ML NEB RESP TX SCH ×6 (03:45→23:36)
[2018-08-07 04:28] LABS: Basophils % 0.5 % (0.0-0.8); Eosinophils # 0.4 10*3/uL (0.0-0.87); Hematocrit 36.8 VOL% (42.0-52.0); Hemoglobin 11.4 GM/DL (14.0-18.0); Immature Granulocytes % 0.3 %; Immature Granulocytes Absolute 0.02 #; Lymphocytes # 1.3 10*3/uL (1.4-4.0); Lymphocytes % 21.2 % (21.2-54.2); Mean Corpuscular Volume 85.4 FL (87-102); Mean Platelet Volume 10.1 FL (9.6-12.0); Monocytes % 12.3 % (1.7-12.7); Neutrophils % 59.7 % (38.7-73.9); Platelet Count 250 T/CUMM (130-400); Red Blood Count 4.31 MC/CUMM (3.8-5.5)
[2018-08-07 04:58] LABS: Calcium 8.8 MG/DL (8.5-10.1); Osmolality,Calculated 295.1 MOS/KG (273-304)
[2018-08-07] MEDS: ACETAMINOPHEN/CODEINE 300-30 MG TABLET PO PRN ×2 (06:05→16:32)
[2018-08-07] MEDS: METOPROLOL TARTRATE 100 MG TABLET PO SCH ×2 (08:38→21:39)
[2018-08-07] MEDS: PREGABALIN 50 MG CAPSULE PO SCH ×3 (08:39→21:39)
[2018-08-07] MEDS: DILTIAZEM CD 120 MG CAPSULE PO SCH (08:39)
[2018-08-07] MEDS: PANTOPRAZOLE 40 MG TABLET PO SCH (08:39)
[2018-08-07] MEDS: INSULIN NPH/REGULAR 70/30 100 UNIT/ML SUBCUT SCH ×2 (08:40→16:34)
[2018-08-07] MEDS: FUROSEMIDE 100 MG/10 ML VIAL IV SCH ×2 (08:42→16:36)
[2018-08-07] MEDS: INSULIN LISPRO 100 UNIT/ML SUBCUT SCH ×3 (08:47→16:52)
[2018-08-07] MEDS: CIPROFLOXACIN INJ 400 MG in PREMIX 1 EACH IV SCH (11:34)
[2018-08-07 11:55] LABS: INR 1.9; PT Patient Result 20.1 SECS
[2018-08-07] MEDS ORDERED: WARFARIN 7.5 MG TABLET PO SCH (18:00)
[2018-08-07] MEDS: MELATONIN 3 MG TABLET PO SCH (21:39)
[2018-08-08] MEDS: CIPROFLOXACIN INJ 400 MG in PREMIX 1 EACH IV SCH ×4 (01:35→22:35)
[2018-08-08] MEDS: LEVALBUTEROL 0.63 MG/3 ML NEB RESP TX SCH ×6 (02:30→23:45)
[2018-08-08] MEDS: ACETAMINOPHEN/CODEINE 300-30 MG TABLET PO PRN ×2 (05:14→23:55)
[2018-08-08 05:29] LABS: INR 1.9
[2018-08-08 05:41] LABS: Basophils % 0.8 % (0.0-0.8); Eosinophils # 0.3 10*3/uL (0.0-0.87); Eosinophils % 5.6 % (0.00-10.9); Hematocrit 36.2 VOL% (42.0-52.0); Hemoglobin 11.3 GM/DL (14.0-18.0); Immature Granulocytes % 0.6 %; Immature Granulocytes Absolute 0.03 #; Lymphocytes # 1.2 10*3/uL (1.4-4.0); Lymphocytes % 23.6 % (21.2-54.2); Mean Corpuscular HGB Conc 31.2 GM/DL (32-36); Mean Corpuscular Volume 86.2 FL (87-102); Mean Platelet Volume 10.5 FL (9.6-12.0); Monocytes % 12.7 % (1.7-12.7); Neutrophils % 56.7 % (38.7-73.9); Platelet Count 233 T/CUMM (130-400); White Blood Count 5.2 T/CUMM (4-12)
[2018-08-08 05:45] LABS: Albumin 3.2 G/DL (3.4-5.0); Bilirubin,Total 0.4 MG/DL (0.2-1.0); Calcium 8.3 MG/DL (8.5-10.1); Osmolality,Calculated 299.4 MOS/KG (273-304); Total Protein 6.9 G/DL (6.4-8.3)
[2018-08-08] MEDS: INSULIN LISPRO 100 UNIT/ML SUBCUT SCH ×3 (08:15→16:26)
[2018-08-08] MEDS: FUROSEMIDE 100 MG/10 ML VIAL IV SCH ×2 (08:53→18:41)
[2018-08-08] MEDS: hydrALAZINE 10 MG TABLET PO SCH ×3 (09:14→20:14)
[2018-08-08] MEDS: METOPROLOL TARTRATE 100 MG TABLET PO SCH ×2 (09:15→20:14)
[2018-08-08] MEDS: DILTIAZEM CD 120 MG CAPSULE PO SCH (09:15)
[2018-08-08] MEDS: INSULIN NPH/REGULAR 70/30 100 UNIT/ML SUBCUT SCH ×2 (09:15→16:25)
[2018-08-08] MEDS: ISOSORBIDE MONONITRATE 30 MG TABLET PO SCH (09:15)
[2018-08-08] MEDS: PANTOPRAZOLE 40 MG TABLET PO SCH (09:15)
[2018-08-08] MEDS: PREGABALIN 50 MG CAPSULE PO SCH ×3 (09:15→20:14)
[2018-08-08] MEDS: WARFARIN 5 MG TABLET PO SCH (17:51)
[2018-08-08] MEDS: MELATONIN 3 MG TABLET PO SCH (20:16)
[2018-08-09] MEDS: LEVALBUTEROL 0.63 MG/3 ML NEB RESP TX SCH ×6 (04:04→22:58)
[2018-08-09] MEDS: ACETAMINOPHEN/CODEINE 300-30 MG TABLET PO PRN (06:14)
[2018-08-09 07:18] LABS: INR 4.1
[2018-08-09 07:41] LABS: Calcium 8.7 MG/DL (8.5-10.1); Osmolality,Calculated 300.4 MOS/KG (273-304)
[2018-08-09] MEDS ORDERED: FUROSEMIDE 40 MG/4 ML VIAL IV SCH (08:07)
[2018-08-09] MEDS: INSULIN LISPRO 100 UNIT/ML SUBCUT SCH ×3 (09:06→17:06)
[2018-08-09] MEDS: INSULIN NPH/REGULAR 70/30 100 UNIT/ML SUBCUT SCH ×2 (09:06→17:24)
[2018-08-09] MEDS: PREGABALIN 50 MG CAPSULE PO SCH ×3 (09:07→20:43)
[2018-08-09] MEDS: ISOSORBIDE MONONITRATE 30 MG TABLET PO SCH (09:07)
[2018-08-09] MEDS: DILTIAZEM CD 120 MG CAPSULE PO SCH (09:07)
[2018-08-09] MEDS: PANTOPRAZOLE 40 MG TABLET PO SCH (09:07)
[2018-08-09] MEDS: FUROSEMIDE 100 MG/10 ML VIAL IV SCH (09:08)
[2018-08-09] MEDS: METOPROLOL TARTRATE 100 MG TABLET PO SCH ×2 (09:08→20:43)
[2018-08-09] MEDS: hydrALAZINE 10 MG TABLET PO SCH ×3 (09:08→20:42)
[2018-08-09] MEDS: CIPROFLOXACIN INJ 400 MG in PREMIX 1 EACH IV SCH (14:13)
[2018-08-09] MEDS: FUROSEMIDE 80 MG TABLET PO SCH (17:24)
[2018-08-09] MEDS: MELATONIN 3 MG TABLET PO SCH (20:43)
[2018-08-10] MEDS: LEVALBUTEROL 0.63 MG/3 ML NEB RESP TX SCH ×6 (01:56→22:33)
[2018-08-10 05:36] LABS: INR 2.7
[2018-08-10 05:40] LABS: PT Patient Result 29.4 SECS
[2018-08-10 05:44] LABS: Osmolality,Calculated 297.4 MOS/KG (273-304)
[2018-08-10] MEDS: INSULIN NPH/REGULAR 70/30 100 UNIT/ML SUBCUT SCH ×2 (08:19→16:37)
[2018-08-10] MEDS: hydrALAZINE 10 MG TABLET PO SCH ×3 (08:20→20:49)
[2018-08-10] MEDS: PANTOPRAZOLE 40 MG TABLET PO SCH (08:20)
[2018-08-10] MEDS: ISOSORBIDE MONONITRATE 30 MG TABLET PO SCH (08:20)
[2018-08-10] MEDS: DILTIAZEM CD 120 MG CAPSULE PO SCH (08:20)
[2018-08-10] MEDS: METOPROLOL TARTRATE 100 MG TABLET PO SCH ×2 (08:20→20:47)
[2018-08-10] MEDS: FUROSEMIDE 80 MG TABLET PO SCH (08:20)
[2018-08-10] MEDS: PREGABALIN 50 MG CAPSULE PO SCH ×3 (08:20→20:48)
[2018-08-10] MEDS: INSULIN LISPRO 100 UNIT/ML SUBCUT SCH ×3 (08:21→15:31)
[2018-08-10] MEDS: LEVOFLOXACIN 500 MG TABLET PO SCH (08:23)
[2018-08-10] MEDS: ACETAMINOPHEN/CODEINE 300-30 MG TABLET PO PRN ×2 (11:06→20:48)
[2018-08-10] MEDS: metOLazone 5 MG TABLET PO SCH (12:46)
[2018-08-10 12:57] LABS: INR 2.3
[2018-08-10 13:12] LABS: PT Patient Result 24.8 SECS
[2018-08-10] MEDS: FUROSEMIDE 40 MG TABLET PO SCH (15:31)
[2018-08-10] MEDS: WARFARIN 4 MG TABLET PO SCH (17:50)
[2018-08-10] MEDS: MELATONIN 3 MG TABLET PO SCH (20:46)
[2018-08-11] MEDS: LEVALBUTEROL 0.63 MG/3 ML NEB RESP TX SCH ×6 (02:30→22:55)
[2018-08-11 05:12] LABS: INR 2.1; PT Patient Result 22.9 SECS
[2018-08-11 05:47] LABS: Calcium 8.6 MG/DL (8.5-10.1); Osmolality,Calculated 302.5 MOS/KG (273-304)
[2018-08-11 05:54] LABS: Calcium 8.4 MG/DL (8.5-10.1); Osmolality,Calculated 303.4 MOS/KG (273-304)
[2018-08-11] MEDS: INSULIN LISPRO 100 UNIT/ML SUBCUT SCH ×3 (08:03→17:02)
[2018-08-11] MEDS: PREGABALIN 50 MG CAPSULE PO SCH ×3 (08:47→21:09)
[2018-08-11] MEDS: hydrALAZINE 10 MG TABLET PO SCH ×3 (08:47→21:09)
[2018-08-11] MEDS: FUROSEMIDE 40 MG TABLET PO SCH (08:47)
[2018-08-11] MEDS: ISOSORBIDE MONONITRATE 30 MG TABLET PO SCH (08:48)
[2018-08-11] MEDS: DILTIAZEM CD 120 MG CAPSULE PO SCH (08:48)
[2018-08-11] MEDS: PANTOPRAZOLE 40 MG TABLET PO SCH (08:48)
[2018-08-11] MEDS: METOPROLOL TARTRATE 100 MG TABLET PO SCH ×2 (08:49→21:09)
[2018-08-11] MEDS: metOLazone 5 MG TABLET PO SCH (08:49)
[2018-08-11] MEDS: INSULIN NPH/REGULAR 70/30 100 UNIT/ML SUBCUT SCH ×2 (08:49→17:02)
[2018-08-11] MEDS: ACETAMINOPHEN/CODEINE 300-30 MG TABLET PO PRN (14:37)
[2018-08-11] MEDS: WARFARIN 4 MG TABLET PO SCH (18:16)
[2018-08-11] MEDS: FUROSEMIDE 40 MG/4 ML VIAL IV SCH (18:17)
[2018-08-11] MEDS: MELATONIN 3 MG TABLET PO SCH (21:09)
[2018-08-12] MEDS: LEVALBUTEROL 0.63 MG/3 ML NEB RESP TX SCH ×6 (03:13→22:57)
[2018-08-12 08:15] LABS: Calcium 8.9 MG/DL (8.5-10.1); Osmolality,Calculated 295.1 MOS/KG (273-304)
[2018-08-12 09:12] LABS: INR 1.9; PT Patient Result 20.8 SECS
[2018-08-12] MEDS: DILTIAZEM CD 120 MG CAPSULE PO SCH (09:25)
[2018-08-12] MEDS: LEVOFLOXACIN 500 MG TABLET PO SCH (09:25)
[2018-08-12] MEDS: METOPROLOL TARTRATE 100 MG TABLET PO SCH ×2 (09:25→20:41)
[2018-08-12] MEDS: metOLazone 5 MG TABLET PO SCH (09:25)
[2018-08-12] MEDS: PREGABALIN 50 MG CAPSULE PO SCH ×3 (09:26→20:42)
[2018-08-12] MEDS: INSULIN LISPRO 100 UNIT/ML SUBCUT SCH ×3 (09:26→16:41)
[2018-08-12] MEDS: hydrALAZINE 10 MG TABLET PO SCH ×3 (09:26→20:41)
[2018-08-12] MEDS: PANTOPRAZOLE 40 MG TABLET PO SCH (09:26)
[2018-08-12] MEDS: INSULIN NPH/REGULAR 70/30 100 UNIT/ML SUBCUT SCH ×2 (09:27→17:49)
[2018-08-12] MEDS: FUROSEMIDE 40 MG/4 ML VIAL IV SCH ×2 (09:30→15:31)
[2018-08-12] MEDS: ISOSORBIDE MONONITRATE 30 MG TABLET PO SCH (09:39)
[2018-08-12] MEDS: ACETAMINOPHEN/CODEINE 300-30 MG TABLET PO PRN (15:30)
[2018-08-12] MEDS: WARFARIN 5 MG TABLET PO SCH (17:49)
[2018-08-12] MEDS: MELATONIN 3 MG TABLET PO SCH (20:41)
[2018-08-13] MEDS: LEVALBUTEROL 0.63 MG/3 ML NEB RESP TX SCH ×6 (02:37→23:08)
[2018-08-13] MEDS: ACETAMINOPHEN/CODEINE 300-30 MG TABLET PO PRN ×3 (07:12→19:32)
[2018-08-13 07:56] LABS: PT Patient Result 22.1 SECS
[2018-08-13] MEDS: INSULIN NPH/REGULAR 70/30 100 UNIT/ML SUBCUT SCH ×2 (08:12→16:34)
[2018-08-13] MEDS: FUROSEMIDE 40 MG/4 ML VIAL IV SCH ×2 (08:29→15:00)
[2018-08-13] MEDS: INSULIN LISPRO 100 UNIT/ML SUBCUT SCH ×3 (08:51→16:34)
[2018-08-13] MEDS: PREGABALIN 50 MG CAPSULE PO SCH ×3 (09:23→21:48)
[2018-08-13] MEDS: metOLazone 5 MG TABLET PO SCH (09:23)
[2018-08-13] MEDS: METOPROLOL TARTRATE 100 MG TABLET PO SCH ×2 (09:23→21:49)
[2018-08-13] MEDS: PANTOPRAZOLE 40 MG TABLET PO SCH (09:24)
[2018-08-13] MEDS: DILTIAZEM CD 120 MG CAPSULE PO SCH (09:24)
[2018-08-13] MEDS: ISOSORBIDE MONONITRATE 30 MG TABLET PO SCH (09:24)
[2018-08-13] MEDS: hydrALAZINE 10 MG TABLET PO SCH ×3 (09:24→21:49)
[2018-08-13] MEDS: WARFARIN 5 MG TABLET PO SCH (18:03)
[2018-08-13] MEDS: MELATONIN 3 MG TABLET PO SCH (21:48)
[2018-08-13] MEDS ORDERED: ZALEPLON 5 MG CAPSULE PO ONE (23:40)
[2018-08-14] MEDS: LEVALBUTEROL 0.63 MG/3 ML NEB RESP TX SCH ×4 (04:05→14:49)
[2018-08-14] MEDS: INSULIN LISPRO 100 UNIT/ML SUBCUT SCH ×3 (07:49→15:54)
[2018-08-14] MEDS: FUROSEMIDE 40 MG/4 ML VIAL IV SCH ×2 (07:53→16:08)
[2018-08-14] MEDS: INSULIN NPH/REGULAR 70/30 100 UNIT/ML SUBCUT SCH ×3 (08:09→16:31)
[2018-08-14] MEDS: ACETAMINOPHEN/CODEINE 300-30 MG TABLET PO PRN ×2 (08:09→14:13)
[2018-08-14] MEDS: metOLazone 5 MG TABLET PO SCH (08:10)
[2018-08-14] MEDS: ISOSORBIDE MONONITRATE 30 MG TABLET PO SCH (08:11)
[2018-08-14] MEDS: METOPROLOL TARTRATE 100 MG TABLET PO SCH (08:11)
[2018-08-14] MEDS: hydrALAZINE 10 MG TABLET PO SCH ×2 (08:11→14:13)
[2018-08-14] MEDS: PREGABALIN 50 MG CAPSULE PO SCH ×2 (08:11→14:13)
[2018-08-14] MEDS: LEVOFLOXACIN 500 MG TABLET PO SCH (08:11)
[2018-08-14] MEDS: DILTIAZEM CD 120 MG CAPSULE PO SCH (08:11)
[2018-08-14] MEDS: PANTOPRAZOLE 40 MG TABLET PO SCH (08:46)
[2018-08-14 16:12] VITALS: BP 114/64
[2018-08-14] MEDS ORDERED: WARFARIN 2.5 MG TABLET PO SCH (18:00)
== END 2018-08-14 18:41 | disposition home health service (06) | DRG 291 ==
LOC: N.ED 14:23 → N.EDINP 19:37 → SUATTDRO 19:38 → N.TELES 20:42
PROVIDERS: ADMIT Internal Medicine; ATTEND Internal Medicine

== ENCOUNTER 2018-10-04 11:12 | Inpatient (IN) ==
[2018-10-04] MEDS ORDERED: FUROSEMIDE 100 MG/10 ML VIAL IV STA (11:41)
[2018-10-04] MEDS ORDERED: ALBUTEROL/IPRATROPIUM 3 ML NEB RESP TX STA (11:41)
[2018-10-04 12:47] LABS: Basophils % 0.6 % (0.0-0.8); Eosinophils # 0.6 10*3/uL (0.0-0.87); Eosinophils % 10.3 % (0.00-10.9); Hematocrit 36.8 VOL% (42.0-52.0); Hemoglobin 11.2 GM/DL (14.0-18.0); Immature Granulocytes % 0.4 %; Immature Granulocytes Absolute 0.02 #; Lymphocytes # 0.8 10*3/uL (1.4-4.0); Lymphocytes % 15.4 % (21.2-54.2); Mean Corpuscular HGB Conc 30.4 GM/DL (32-36); Mean Corpuscular Volume 86.8 FL (87-102); Mean Platelet Volume 10.4 FL (9.6-12.0); Monocytes % 12.2 % (1.7-12.7); Neutrophils % 61.1 % (38.7-73.9); Platelet Count 233 T/CUMM (130-400); Red Blood Count 4.24 MC/CUMM (3.8-5.5); Red Cell Distribution Width 18.3 % (9.3-17.3); White Blood Count 5.3 T/CUMM (4-12)
[2018-10-04 13:01] LABS: Albumin 3.4 G/DL (3.4-5.0); Bilirubin,Total 0.6 MG/DL (0.2-1.0); Calcium 8.8 MG/DL (8.5-10.1); Osmolality,Calculated 302.7 MOS/KG (273-304); Total Protein 7.4 G/DL (6.4-8.3)
[2018-10-04 14:27] LABS: INR 2.4
[2018-10-04 14:30] LABS: PT Patient Result 25.4 SECS
[2018-10-04] MEDS ORDERED: PROMETHAZINE 25 MG/1 ML VIAL IM PRN (15:29)
[2018-10-04] MEDS ORDERED: ACETAMINOPHEN 325 MG TABLET PO PRN (15:29)
[2018-10-04] MEDS ORDERED: ONDANSETRON 4 MG/2 ML VIAL IV PRN (15:29)
[2018-10-04] MEDS ORDERED: ENOXAPARIN 40 MG/0.4 ML SYRINGE SUBCUT SCH (15:30)
[2018-10-04] MEDS ORDERED: GLUCAGON 1 MG VIAL IM PRN (15:39)
[2018-10-04] MEDS ORDERED: ALBUTEROL 2.5 MG/3 ML NEB RESP TX PRN ×2 (15:39)
[2018-10-04] MEDS ORDERED: DEXTROSE 50% 25 GM/50 ML VIAL IV PRN (15:39)
[2018-10-04] MEDS ORDERED: FUROSEMIDE 40 MG/4 ML VIAL IV SCH (16:00)
[2018-10-04] MEDS ORDERED: MAGNESIUM SULF RIDER 2 GM in PREMIX 1 EACH IV ONE (16:20)
[2018-10-04] MEDS ORDERED: INSULIN NPH/REGULAR 70/30 100 UNIT/ML SUBCUT SCH (17:00)
[2018-10-04] MEDS ORDERED: WARFARIN 7.5 MG TABLET PO SCH (18:00)
[2018-10-04] MEDS: SPIRONOLACTONE 25 MG TABLET PO SCH (18:01)
[2018-10-04] MEDS: FUROSEMIDE 40 MG/4 ML VIAL IV SCH (18:01)
[2018-10-04] MEDS: PANTOPRAZOLE 40 MG TABLET PO SCH (18:02)
[2018-10-04] MEDS: metOLazone 5 MG TABLET PO SCH (18:02)
[2018-10-04] MEDS: INSULIN LISPRO 100 UNIT/ML SUBCUT SCH ×2 (18:04→21:27)
[2018-10-04] MEDS: POTASSIUM CHLORIDE 20 MEQ TABLET PO SCH (18:47)
[2018-10-04] MEDS: DILTIAZEM CD 180 MG CAPSULE PO SCH (18:47)
[2018-10-04] MEDS: FLUTICASONE 50 MCG NASAL SPRAY 16 GM BOTTLE BOTH NARES SCH (18:47)
[2018-10-04] MEDS: IPRATROPIUM 500 MCG/2.5 ML NEB RESP TX SCH (19:20)
[2018-10-04] MEDS: MELATONIN 3 MG TABLET PO SCH (21:26)
[2018-10-04] MEDS: PREGABALIN 100 MG CAPSULE PO SCH (21:26)
[2018-10-04] MEDS: OXYBUTYNIN 5 MG TABLET PO SCH (21:26)
[2018-10-04] MEDS: METOPROLOL TARTRATE 50 MG TABLET PO SCH (21:26)
[2018-10-05 05:35] LABS: Basophils % 0.6 % (0.0-0.8); Eosinophils # 0.7 10*3/uL (0.0-0.87); Eosinophils % 15.2 % (0.00-10.9); Hematocrit 38.6 VOL% (42.0-52.0); Hemoglobin 11.8 GM/DL (14.0-18.0); Immature Granulocytes % 0.4 %; Immature Granulocytes Absolute 0.02 #; Lymphocytes # 0.9 10*3/uL (1.4-4.0); Mean Corpuscular HGB Conc 30.6 GM/DL (32-36); Mean Corpuscular Volume 86.2 FL (87-102); Mean Platelet Volume 10.9 FL (9.6-12.0); Monocytes % 12.1 % (1.7-12.7); Neutrophils % 53.7 % (38.7-73.9); Platelet Count 238 T/CUMM (130-400); Red Blood Count 4.48 MC/CUMM (3.8-5.5); Red Cell Distribution Width 18.3 % (9.3-17.3); White Blood Count 4.9 T/CUMM (4-12)
[2018-10-05 05:49] LABS: Albumin 3.4 G/DL (3.4-5.0); Bilirubin,Total 1.1 MG/DL (0.2-1.0); Calcium 9.3 MG/DL (8.5-10.1); INR 2.4; Osmolality,Calculated 304.6 MOS/KG (273-304); Risk Ratio 2.52; Total Protein 7.8 G/DL (6.4-8.3); VLDL CHOLESTEROL 15.2 MG/DL
[2018-10-05 06:00] LABS: PT Patient Result 26.2 SECS
[2018-10-05 06:44] LABS: Anisocytosis 1+; Band Neutrophils 4 % (0-10); Eosinophils 17 % (0-10); Lymphocytes 15 % (20-55); Macrocytosis Slight; Platelet Estimate Normal; Poikilocytosis 1+; Segmented Neutrophils 58 % (50-85); Total Cells Counted 100
[2018-10-05] MEDS: IPRATROPIUM 500 MCG/2.5 ML NEB RESP TX SCH ×4 (07:27→19:29)
[2018-10-05] MEDS: oxyCODONE/ACETAMINOPHEN 5-325 MG TABLET PO PRN ×2 (08:09→18:16)
[2018-10-05] MEDS: INSULIN NPH/REGULAR 70/30 100 UNIT/ML SUBCUT SCH ×2 (08:38→16:52)
[2018-10-05] MEDS: INSULIN LISPRO 100 UNIT/ML SUBCUT SCH ×4 (08:38→22:17)
[2018-10-05] MEDS: FUROSEMIDE 40 MG/4 ML VIAL IV SCH ×2 (09:07→15:27)
[2018-10-05] MEDS: METOPROLOL TARTRATE 50 MG TABLET PO SCH ×2 (09:07→21:11)
[2018-10-05] MEDS: PREGABALIN 100 MG CAPSULE PO SCH ×2 (09:07→21:11)
[2018-10-05] MEDS: OXYBUTYNIN 5 MG TABLET PO SCH ×2 (09:07→21:11)
[2018-10-05] MEDS: PANTOPRAZOLE 40 MG TABLET PO SCH (09:07)
[2018-10-05] MEDS: metOLazone 5 MG TABLET PO SCH (09:07)
[2018-10-05] MEDS: SPIRONOLACTONE 25 MG TABLET PO SCH (09:07)
[2018-10-05] MEDS ORDERED: SKIN HEALING OINT (AQUAPHOR) 50 GM TUBE TOP PRN (15:55)
[2018-10-05] MEDS ORDERED: WARFARIN 5 MG TABLET PO SCH (18:00)
[2018-10-05] MEDS: DILTIAZEM CD 180 MG CAPSULE PO SCH (18:01)
[2018-10-05] MEDS: FLUTICASONE 50 MCG NASAL SPRAY 16 GM BOTTLE BOTH NARES SCH (18:01)
[2018-10-05] MEDS: POTASSIUM CHLORIDE 20 MEQ TABLET PO SCH (18:01)
[2018-10-05] MEDS: MELATONIN 3 MG TABLET PO SCH (21:11)
[2018-10-06] MEDS: oxyCODONE/ACETAMINOPHEN 5-325 MG TABLET PO PRN ×2 (01:30→10:19)
[2018-10-06 05:30] LABS: Basophils % 0.6 % (0.0-0.8); Eosinophils # 0.5 10*3/uL (0.0-0.87); Eosinophils % 9.6 % (0.00-10.9); Hematocrit 36.7 VOL% (42.0-52.0); Immature Granulocytes % 0.2 %; Immature Granulocytes Absolute 0.01 #; Lymphocytes # 0.9 10*3/uL (1.4-4.0); Lymphocytes % 18.5 % (21.2-54.2); Mean Platelet Volume 10.9 FL (9.6-12.0); Monocytes % 11.4 % (1.7-12.7); Neutrophils % 59.7 % (38.7-73.9); Platelet Count 225 T/CUMM (130-400); Red Blood Count 4.22 MC/CUMM (3.8-5.5); Red Cell Distribution Width 18.2 % (9.3-17.3); White Blood Count 4.8 T/CUMM (4-12)
[2018-10-06 05:49] LABS: INR 4.6
[2018-10-06 05:53] LABS: Calcium 9.2 MG/DL (8.5-10.1); Osmolality,Calculated 305.1 MOS/KG (273-304)
[2018-10-06] MEDS: IPRATROPIUM 500 MCG/2.5 ML NEB RESP TX SCH (07:29)
[2018-10-06 07:37] VITALS: BP 116/78
[2018-10-06] MEDS: FUROSEMIDE 40 MG/4 ML VIAL IV SCH (08:17)
[2018-10-06] MEDS: PREGABALIN 100 MG CAPSULE PO SCH (08:18)
[2018-10-06] MEDS: METOPROLOL TARTRATE 50 MG TABLET PO SCH (08:18)
[2018-10-06] MEDS: OXYBUTYNIN 5 MG TABLET PO SCH (08:18)
[2018-10-06] MEDS: metOLazone 5 MG TABLET PO SCH (08:18)
[2018-10-06] MEDS: SPIRONOLACTONE 25 MG TABLET PO SCH (08:18)
[2018-10-06] MEDS: PANTOPRAZOLE 40 MG TABLET PO SCH (08:18)
[2018-10-06] MEDS: INSULIN NPH/REGULAR 70/30 100 UNIT/ML SUBCUT SCH (08:19)
[2018-10-06] MEDS: INSULIN LISPRO 100 UNIT/ML SUBCUT SCH (08:19)
== END 2018-10-06 11:55 | disposition home health service (06) | DRG 291 ==
LOC: N.ED 11:12 → N.EDINP 16:20 → N.5E 16:54
PROVIDERS: ADMIT Family Medicine; ATTEND Family Medicine

== ENCOUNTER 2018-10-10 03:44 | Observation (INO) ==
[2018-10-10 05:17] LABS: Basophils % 0.5 % (0.0-0.8); Eosinophils # 0.4 10*3/uL (0.0-0.87); Hematocrit 37.1 VOL% (42.0-52.0); Hemoglobin 11.2 GM/DL (14.0-18.0); Immature Granulocytes % 0.5 %; Immature Granulocytes Absolute 0.03 #; Lymphocytes % 16.3 % (21.2-54.2); Mean Corpuscular HGB Conc 30.2 GM/DL (32-36); Mean Corpuscular Volume 85.5 FL (87-102); Mean Platelet Volume 10.4 FL (9.6-12.0); Monocytes % 13.8 % (1.7-12.7); Neutrophils % 62.9 % (38.7-73.9); Platelet Count 234 T/CUMM (130-400); Red Blood Count 4.34 MC/CUMM (3.8-5.5); Red Cell Distribution Width 18.2 % (9.3-17.3); White Blood Count 6.2 T/CUMM (4-12)
[2018-10-10] MEDS ORDERED: hydrALAZINE 20 MG/1 ML VIAL IV STA (05:25)
[2018-10-10 05:37] LABS: Albumin 3.6 G/DL (3.4-5.0); Bilirubin,Total 0.9 MG/DL (0.2-1.0); Calcium 9.7 MG/DL (8.5-10.1); Osmolality,Calculated 307.8 MOS/KG (273-304); Total Protein 7.7 G/DL (6.4-8.3)
[2018-10-10] MEDS ORDERED: ONDANSETRON 4 MG/2 ML VIAL IV PRN (06:06)
[2018-10-10] MEDS ORDERED: MAGNESIUM SULF RIDER 4 GM in PREMIX 1 EACH IV PRN (06:06)
[2018-10-10] MEDS ORDERED: MAGNESIUM SULF RIDER 2 GM in PREMIX 1 EACH IV PRN (06:06)
[2018-10-10] MEDS ORDERED: DEXTROSE 50% 25 GM/50 ML VIAL IV PRN (06:14)
[2018-10-10] MEDS ORDERED: GLUCAGON 1 MG VIAL IM PRN (06:14)
[2018-10-10] MEDS: ALBUTEROL/IPRATROPIUM 3 ML NEB RESP TX SCH ×4 (07:22→19:06)
[2018-10-10 07:25] LABS: INR 2.6
[2018-10-10 07:31] LABS: PT Patient Result 28.3 SECS
[2018-10-10] MEDS: metOLazone 5 MG TABLET PO SCH (08:27)
[2018-10-10] MEDS: SPIRONOLACTONE 25 MG TABLET PO SCH (08:27)
[2018-10-10] MEDS: hydrALAZINE 10 MG TABLET PO SCH ×3 (08:28→21:06)
[2018-10-10] MEDS: PANTOPRAZOLE 40 MG TABLET PO SCH (08:28)
[2018-10-10] MEDS: ISOSORBIDE MONONITRATE 30 MG TABLET PO SCH (08:28)
[2018-10-10] MEDS: OXYBUTYNIN 5 MG TABLET PO SCH ×2 (08:28→21:06)
[2018-10-10] MEDS: METOPROLOL TARTRATE 100 MG TABLET PO SCH ×2 (08:28→21:06)
[2018-10-10] MEDS: MAGNESIUM OXIDE 400 MG TABLET PO SCH ×2 (08:28→21:06)
[2018-10-10] MEDS: PREGABALIN 100 MG CAPSULE PO SCH ×2 (08:28→21:06)
[2018-10-10] MEDS: INSULIN REGULAR 100 UNIT/ML SUBCUT SCH ×4 (08:29→21:09)
[2018-10-10] MEDS: FUROSEMIDE 40 MG/4 ML VIAL IV SCH ×2 (08:29→15:50)
[2018-10-10] MEDS: DILTIAZEM 30 MG TABLET PO SCH ×2 (15:50→21:05)
[2018-10-10] MEDS: ACETAMINOPHEN 325 MG TABLET PO PRN ×2 (15:59→21:15)
[2018-10-10] MEDS: WARFARIN 5 MG TABLET PO SCH (18:18)
[2018-10-10] MEDS ORDERED: IPRATROPIUM 500 MCG/2.5 ML NEB RESP TX SCH (19:00)
[2018-10-10] MEDS ORDERED: DILTIAZEM CD 120 MG CAPSULE PO SCH (19:00)
[2018-10-10] MEDS: MELATONIN 3 MG TABLET PO SCH (21:05)
[2018-10-10] MEDS: FLUTICASONE 50 MCG NASAL SPRAY 16 GM BOTTLE BOTH NARES SCH (21:17)
[2018-10-11] MEDS: ALBUTEROL/IPRATROPIUM 3 ML NEB RESP TX SCH ×7 (00:14→22:46)
[2018-10-11 06:12] LABS: Basophils % 0.4 % (0.0-0.8); Eosinophils # 0.5 10*3/uL (0.0-0.87); Eosinophils % 9.7 % (0.00-10.9); Hematocrit 33.1 VOL% (42.0-52.0); Hemoglobin 10.2 GM/DL (14.0-18.0); Immature Granulocytes % 0.4 %; Immature Granulocytes Absolute 0.02 #; Lymphocytes # 1.2 10*3/uL (1.4-4.0); Lymphocytes % 23.7 % (21.2-54.2); Mean Corpuscular HGB Conc 30.8 GM/DL (32-36); Mean Corpuscular Volume 85.8 FL (87-102); Mean Platelet Volume 9.8 FL (9.6-12.0); Monocytes % 15.3 % (1.7-12.7); Neutrophils % 50.5 % (38.7-73.9); Platelet Count 207 T/CUMM (130-400); Red Blood Count 3.86 MC/CUMM (3.8-5.5); Red Cell Distribution Width 18.2 % (9.3-17.3); White Blood Count 5.2 T/CUMM (4-12)
[2018-10-11 06:30] LABS: Calcium 9.1 MG/DL (8.5-10.1); Osmolality,Calculated 305.4 MOS/KG (273-304)
[2018-10-11 06:31] LABS: Calcium 9.1 MG/DL (8.5-10.1); Osmolality,Calculated 309.1 MOS/KG (273-304)
[2018-10-11 06:34] LABS: INR 1.7; PT Patient Result 18.5 SECS
[2018-10-11] MEDS: INSULIN REGULAR 100 UNIT/ML SUBCUT SCH ×4 (08:48→21:06)
[2018-10-11] MEDS: SPIRONOLACTONE 25 MG TABLET PO SCH (08:49)
[2018-10-11] MEDS: metOLazone 5 MG TABLET PO SCH (08:49)
[2018-10-11] MEDS: FUROSEMIDE 40 MG/4 ML VIAL IV SCH ×2 (08:49→15:56)
[2018-10-11] MEDS: DILTIAZEM 30 MG TABLET PO SCH ×3 (08:49→21:03)
[2018-10-11] MEDS: hydrALAZINE 10 MG TABLET PO SCH ×3 (08:49→21:06)
[2018-10-11] MEDS: ISOSORBIDE MONONITRATE 30 MG TABLET PO SCH (08:49)
[2018-10-11] MEDS: METOPROLOL TARTRATE 100 MG TABLET PO SCH ×2 (08:49→21:05)
[2018-10-11] MEDS: PREGABALIN 100 MG CAPSULE PO SCH ×2 (08:50→21:06)
[2018-10-11] MEDS: PANTOPRAZOLE 40 MG TABLET PO SCH (08:50)
[2018-10-11] MEDS: OXYBUTYNIN 5 MG TABLET PO SCH ×2 (08:50→21:06)
[2018-10-11] MEDS: MAGNESIUM OXIDE 400 MG TABLET PO SCH ×2 (08:50→21:05)
[2018-10-11] MEDS: ACETAMINOPHEN 325 MG TABLET PO PRN ×2 (09:04→21:09)
[2018-10-11] MEDS ORDERED: WARFARIN 5 MG TABLET PO SCH (18:00)
[2018-10-11] MEDS: FLUTICASONE 50 MCG NASAL SPRAY 16 GM BOTTLE BOTH NARES SCH (18:20)
[2018-10-11] MEDS: MELATONIN 3 MG TABLET PO SCH (21:05)
[2018-10-11] MEDS: guaiFENesin/DM ER 600-30 MG TABLET PO SCH (21:56)
[2018-10-12] MEDS: ALBUTEROL/IPRATROPIUM 3 ML NEB RESP TX SCH ×6 (02:30→22:12)
[2018-10-12 06:49] LABS: Calcium 9.2 MG/DL (8.5-10.1); Osmolality,Calculated 300.4 MOS/KG (273-304)
[2018-10-12 07:23] LABS: Basophils % 0.3 % (0.0-0.8); Eosinophils # 0.8 10*3/uL (0.0-0.87); Eosinophils % 12.4 % (0.00-10.9); Hematocrit 35.1 VOL% (42.0-52.0); Hemoglobin 10.6 GM/DL (14.0-18.0); Immature Granulocytes % 0.5 %; Immature Granulocytes Absolute 0.03 #; Lymphocytes # 1.2 10*3/uL (1.4-4.0); Lymphocytes % 19.2 % (21.2-54.2); Mean Corpuscular HGB Conc 30.2 GM/DL (32-36); Mean Corpuscular Volume 86.7 FL (87-102); Mean Platelet Volume 10.2 FL (9.6-12.0); Monocytes % 13.6 % (1.7-12.7); Platelet Count 201 T/CUMM (130-400); Red Blood Count 4.05 MC/CUMM (3.8-5.5); Red Cell Distribution Width 18.3 % (9.3-17.3)
[2018-10-12 08:11] LABS: Elliptocytes Few; Eosinophils 6 % (0-10); Hypochromasia 1+; Lymphocytes 18 % (20-55); Ovalocytes Few; Segmented Neutrophils 56 % (50-85); Total Cells Counted 100
[2018-10-12 08:12] LABS: Burr Cells Slight; Microcytosis 1+; Platelet Estimate Normal; Polychromasia Slight
[2018-10-12] MEDS: FUROSEMIDE 40 MG/4 ML VIAL IV SCH ×2 (08:38→15:28)
[2018-10-12] MEDS: INSULIN REGULAR 100 UNIT/ML SUBCUT SCH ×4 (08:38→20:09)
[2018-10-12] MEDS: PREGABALIN 100 MG CAPSULE PO SCH ×2 (08:39→20:35)
[2018-10-12] MEDS: OXYBUTYNIN 5 MG TABLET PO SCH ×2 (08:39→20:35)
[2018-10-12] MEDS: PANTOPRAZOLE 40 MG TABLET PO SCH (08:39)
[2018-10-12] MEDS: DILTIAZEM 30 MG TABLET PO SCH ×3 (08:39→20:35)
[2018-10-12] MEDS: hydrALAZINE 10 MG TABLET PO SCH ×3 (08:39→20:35)
[2018-10-12] MEDS: metOLazone 5 MG TABLET PO SCH (08:39)
[2018-10-12] MEDS: MAGNESIUM OXIDE 400 MG TABLET PO SCH ×2 (08:39→20:35)
[2018-10-12] MEDS: guaiFENesin/DM ER 600-30 MG TABLET PO SCH ×2 (08:39→20:35)
[2018-10-12] MEDS: ISOSORBIDE MONONITRATE 30 MG TABLET PO SCH (08:39)
[2018-10-12] MEDS: SPIRONOLACTONE 25 MG TABLET PO SCH (08:39)
[2018-10-12] MEDS: METOPROLOL TARTRATE 100 MG TABLET PO SCH ×2 (08:39→20:35)
[2018-10-12] MEDS: ACETAMINOPHEN 325 MG TABLET PO PRN ×2 (08:44→15:27)
[2018-10-12 09:20] LABS: Calcium 9.2 MG/DL (8.5-10.1); Osmolality,Calculated 345.2 MOS/KG (273-304)
[2018-10-12 11:59] LABS: INR 1.5; PT Patient Result 16.7 SECS
[2018-10-12] MEDS: FLUTICASONE 50 MCG NASAL SPRAY 16 GM BOTTLE BOTH NARES SCH ×2 (17:55→20:36)
[2018-10-12] MEDS: WARFARIN 5 MG TABLET PO SCH (17:55)
[2018-10-12] MEDS: MELATONIN 3 MG TABLET PO SCH (20:35)
[2018-10-13] MEDS: ALBUTEROL/IPRATROPIUM 3 ML NEB RESP TX SCH ×4 (03:05→15:44)
[2018-10-13 05:22] LABS: Basophils % 0.3 % (0.0-0.8); Eosinophils # 0.7 10*3/uL (0.0-0.87); Eosinophils % 12.2 % (0.00-10.9); Hematocrit 33.3 VOL% (42.0-52.0); Immature Granulocytes % 0.5 %; Immature Granulocytes Absolute 0.03 #; Lymphocytes # 1.2 10*3/uL (1.4-4.0); Lymphocytes % 19.2 % (21.2-54.2); Mean Corpuscular Volume 86.3 FL (87-102); Mean Platelet Volume 10.4 FL (9.6-12.0); Monocytes % 13.4 % (1.7-12.7); Neutrophils % 54.4 % (38.7-73.9); Platelet Count 196 T/CUMM (130-400); Red Blood Count 3.86 MC/CUMM (3.8-5.5); Red Cell Distribution Width 18.4 % (9.3-17.3)
[2018-10-13 05:45] LABS: Band Neutrophils 3 % (0-10); Eosinophils 10 % (0-10); Lymphocytes 20 % (20-55); Segmented Neutrophils 60 % (50-85); Total Cells Counted 100
[2018-10-13 05:46] LABS: Anisocytosis 1+; Hypochromasia 1+; Platelet Estimate Normal
[2018-10-13 05:55] LABS: Calcium 9.1 MG/DL (8.5-10.1); Osmolality,Calculated 299.5 MOS/KG (273-304)
[2018-10-13] MEDS: INSULIN REGULAR 100 UNIT/ML SUBCUT SCH ×3 (08:54→15:52)
[2018-10-13] MEDS: guaiFENesin/DM ER 600-30 MG TABLET PO SCH (08:55)
[2018-10-13] MEDS: DILTIAZEM 30 MG TABLET PO SCH ×2 (08:55→15:49)
[2018-10-13] MEDS: METOPROLOL TARTRATE 100 MG TABLET PO SCH (08:57)
[2018-10-13] MEDS: PANTOPRAZOLE 40 MG TABLET PO SCH (08:58)
[2018-10-13] MEDS: ISOSORBIDE MONONITRATE 30 MG TABLET PO SCH (08:58)
[2018-10-13] MEDS: hydrALAZINE 10 MG TABLET PO SCH ×2 (08:58→15:51)
[2018-10-13] MEDS: MAGNESIUM OXIDE 400 MG TABLET PO SCH (08:58)
[2018-10-13] MEDS: OXYBUTYNIN 5 MG TABLET PO SCH (08:58)
[2018-10-13] MEDS: PREGABALIN 100 MG CAPSULE PO SCH (08:58)
[2018-10-13] MEDS: metOLazone 5 MG TABLET PO SCH (08:58)
[2018-10-13] MEDS: ACETAMINOPHEN 325 MG TABLET PO PRN (09:06)
[2018-10-13] MEDS: FUROSEMIDE 40 MG/4 ML VIAL IV SCH ×2 (09:07→15:51)
[2018-10-13 16:51] VITALS: BP 107/72
== END 2018-10-13 17:00 | disposition home health service (06) ==
LOC: N.ED 03:44 → N.EDINP 06:06 → INTOOBSV 06:06 → N.5E 06:51
PROVIDERS: ADMIT Hospitalist; ATTEND Hospitalist

== ENCOUNTER 2018-12-04 10:40 | Inpatient (IN) ==
[2018-12-04] MEDS ORDERED: SODIUM CHLORIDE 0.9% 1,000 ML IV STA (11:19)
[2018-12-04 11:41] LABS: Basophils % 0.6 % (0.0-0.8); Hemoglobin 10.4 GM/DL (14.0-18.0); Immature Granulocytes % 1.2 %; Immature Granulocytes Absolute 0.02 #; Lymphocytes # 0.2 10*3/uL (1.4-4.0); Lymphocytes % 9.3 % (21.2-54.2); Mean Corpuscular HGB Conc 31.5 GM/DL (32-36); Mean Corpuscular Volume 81.1 FL (87-102); Mean Platelet Volume 10.3 FL (9.6-12.0); NRBC # 0.05 10*3/uL; Neutrophils % 80.9 % (38.7-73.9); Platelet Count 254 T/CUMM (130-400); Red Blood Count 4.07 MC/CUMM (3.8-5.5); Red Cell Distribution Width 18.1 % (9.3-17.3); White Blood Count 1.6 T/CUMM (4-12)
[2018-12-04 12:02] LABS: Band Neutrophils 20 % (0-10); Hypochromasia 1+; Lymphocytes 15 % (20-55); Nucleated Red Blood Cells 2 (0-5); Platelet Estimate Adequate; Segmented Neutrophils 55 % (50-85); Total Cells Counted 100
[2018-12-04 12:04] LABS: PT Patient Result 53.4 SECS (9.6-12.2)
[2018-12-04 12:07] LABS: Blood Urea Nitrogen 99 MG/DL (7-18); Calcium 8.6 MG/DL (8.5-10.1); Estimated Glom Filtration Rate 14 ML/MIN; Glucose 285 MG/DL (74-106); Troponin I 0.019 NG/ML (0.00-0.045)
[2018-12-04 12:16] LABS: Albumin 2.5 G/DL (3.4-5.0); Bilirubin,Total 1.5 MG/DL (0.2-1.0); Calcium 9.1 MG/DL (8.5-10.1); Osmolality,Calculated 315.7 MOS/KG (273-304); Total Protein 7.3 G/DL (6.4-8.3)
[2018-12-04] MEDS ORDERED: MORPHINE 4 MG/1 ML VIAL IV PRN (12:36)
[2018-12-04] MEDS ORDERED: ONDANSETRON 4 MG/2 ML VIAL IV PRN (12:36)
[2018-12-04] MEDS ORDERED: ALBUTEROL 2.5 MG/3 ML NEB RESP TX PRN (12:36)
[2018-12-04] MEDS ORDERED: LACTULOSE 20 GM/30 ML UDCUP PO PRN (12:36)
[2018-12-04] MEDS ORDERED: ACETAMINOPHEN 325 MG TABLET PO PRN (12:40)
[2018-12-04] MEDS ORDERED: DILTIAZEM 50 MG/10 ML VIAL IV STA (12:45)
[2018-12-04] MEDS ORDERED: CEFTAROLINE 600 MG in SODIUM CHLORIDE 0.9% 100 ML IV STA (12:45)
[2018-12-04 12:54] LABS: INR 5.2
[2018-12-04] MEDS ORDERED: WARFARIN 5 MG TABLET PO SCH (13:00)
[2018-12-04] MEDS ORDERED: dilTIAZem Drip 125 MG/125 ML PREMIX IV SCH (13:00)
[2018-12-04] MEDS ORDERED: FAMOTIDINE 20 MG/2 ML VIAL IV SCH (13:00)
[2018-12-04] MEDS ORDERED: DILTIAZEM 25 MG/5 ML VIAL IV ONE (13:03)
[2018-12-04] MEDS ORDERED: SODIUM CHLORIDE 0.9% 1,250 ML IV ONE (13:19)
[2018-12-04] MEDS ORDERED: VANCOMYCIN INJ 2,000 MG in SODIUM CHLORIDE 0.9% 500 ML IV STA (13:21)
[2018-12-04] MEDS ORDERED: VANCOMYCIN INJ 1,000 MG in SODIUM CHLORIDE 0.9% 250 ML IV PRN (15:21)
[2018-12-04] MEDS ORDERED: DEXTROSE 10% 25 GM/250 ML BAG IV PRN (15:23)
[2018-12-04] MEDS ORDERED: GLUCAGON 1 MG VIAL IM PRN (15:23)
[2018-12-04] MEDS: CEFEPIME 500 MG in SYRINGE 1 EACH IV SCH (15:28)
[2018-12-04] MEDS: DILTIAZEM CD 180 MG CAPSULE PO SCH (15:29)
[2018-12-04] MEDS: OXYBUTYNIN 5 MG TABLET PO SCH ×2 (15:29→21:14)
[2018-12-04] MEDS ORDERED: LIDOCAINE 2% TOP JELLY 20 ML VIAL INTRAURETH ONE (15:30)
[2018-12-04 16:07] LABS: Amorphous Crystals,Urine Occasional /HPF (Few); Apearance,Urine Slightly Hazy (Clear); Bilirubin,Urine Negative (Negative); Blood, Urine Small mg/dL (Negative); Glucose,Urine (UA) Negative (Negative); Hyaline Casts,Urine 14 /LPF (0-3); Ketones,Urine Negative (Negative); Mucus,Urine Occasional /LPF (Occasional); Nitrite,Urine Negative (Negative); Protein,Urine Negative; RBC,Urine 7 /HPF (0-4); Squamous Epithelial Cell,Urine Occasional /HPF (0-10); Urine Color Amber (Yellow); Urine Specific Gravity 1.013 (1.001-1.035); Urine Urobilinogen < 2.0 EU/DL (0.2-1.0); WBC,Urine 2 /HPF (0-6)
[2018-12-04] MEDS: SKIN HEALING OINT (AQUAPHOR) 50 GM TUBE TOP SCH (16:25)
[2018-12-04] MEDS: INSULIN LISPRO 100 UNIT/ML SUBCUT SCH ×2 (17:18→21:14)
[2018-12-04 17:20] LABS: ABG Base Excess -6.3 MMOL/L (-2.5-2.5); ABG HCO3 19.2 MMOL/L (20-26); ABG Oxygen Saturation 94.4 % (95-100); ABG PCO2 35.6 MM HG (35-48); ABG PH 7.333 (7.35-7.45); ABG PO2 78.2 MM HG (80-95); ABG TCO2 17.2 MMOL/L (23-27); Allen Test Positive; Pt O2 Delivery Device BIPAP
[2018-12-04] MEDS: METOPROLOL TARTRATE 50 MG TABLET PO SCH (21:14)
[2018-12-05 01:31] LABS: Basophils % 0.9 % (0.0-0.8); Eosinophils % 0.2 % (0.00-10.9); Hematocrit 31.7 VOL% (42.0-52.0); Hemoglobin 10.1 GM/DL (14.0-18.0); Immature Granulocytes % 0.7 %; Immature Granulocytes Absolute 0.03 #; Lymphocytes # 0.3 10*3/uL (1.4-4.0); Lymphocytes % 7.5 % (21.2-54.2); Mean Corpuscular HGB Conc 31.9 GM/DL (32-36); Mean Corpuscular Volume 79.4 FL (87-102); Mean Platelet Volume 10.6 FL (9.6-12.0); Monocytes % 5.3 % (1.7-12.7); NRBC # 0.17 10*3/uL; Neutrophils % 85.4 % (38.7-73.9); Platelet Count 200 T/CUMM (130-400); Red Blood Count 3.99 MC/CUMM (3.8-5.5); Red Cell Distribution Width 18.2 % (9.3-17.3); White Blood Count 4.6 T/CUMM (4-12)
[2018-12-05 01:47] LABS: PT Patient Result 63.4 SECS (9.6-12.2)
[2018-12-05 01:48] LABS: INR 5.9
[2018-12-05 01:52] LABS: Albumin 2.2 G/DL (3.4-5.0); Bilirubin,Total 1.2 MG/DL (0.2-1.0); Calcium 8.6 MG/DL (8.5-10.1); Osmolality,Calculated 310.8 MOS/KG (273-304); Total Protein 7.3 G/DL (6.4-8.3)
[2018-12-05 02:33] LABS: Band Neutrophils 10 % (0-10); Eosinophils 1 % (0-10); Lymphocytes 9 % (20-55); Metamyelocytes 12 %; Myelocytes 1 %; Nucleated Red Blood Cells 6 (0-5); Segmented Neutrophils 60 % (50-85)
[2018-12-05 02:36] LABS: Burr Cells Few; Hypochromasia Slight; Ovalocytes 1+; Platelet Estimate Adequate; Polychromasia Few; Target Cells Few; Total Cells Counted 100
[2018-12-05] MEDS: DILTIAZEM CD 180 MG CAPSULE PO SCH (09:53)
[2018-12-05] MEDS: MULTIVITAMIN (CENTRUM) TABLET PO SCH (09:53)
[2018-12-05] MEDS: PANTOPRAZOLE 40 MG TABLET PO SCH (09:53)
[2018-12-05] MEDS: OXYBUTYNIN 5 MG TABLET PO SCH ×2 (09:53→21:09)
[2018-12-05] MEDS: METOPROLOL TARTRATE 50 MG TABLET PO SCH ×3 (09:53→22:42)
[2018-12-05] MEDS: INSULIN LISPRO 100 UNIT/ML SUBCUT SCH ×4 (09:54→21:25)
[2018-12-05] MEDS: SKIN HEALING OINT (AQUAPHOR) 50 GM TUBE TOP SCH (09:54)
[2018-12-05] MEDS: CEFEPIME 500 MG in SYRINGE 1 EACH IV SCH (12:48)
[2018-12-05] MEDS ORDERED: ALBUMIN 25% 25 GM in PREMIX 1 EACH IV ONE (17:08)
[2018-12-05] MEDS ORDERED: FUROSEMIDE 40 MG/4 ML VIAL IV ONE ×2 (17:08→20:41)
[2018-12-05] MEDS ORDERED: WARFARIN 5 MG TABLET PO SCH (18:00)
[2018-12-05 19:12] LABS: Hepatitis B Core IgM Quant 0.21 Index; Hepatitis B Surface Ag Quant < 0.10 Index; Hepatitis B Surface Ag Result Negative (Negative); Hepatitis C Virus Ab Quant > 11.00 Index; Hepatitis C Virus Ab Result Positive (Negative)
[2018-12-05 20:40] LABS: Allen Test Positive; Pt O2 Delivery Device CPAP
[2018-12-05 20:41] LABS: ABG Base Excess -6.6 MMOL/L (-2.5-2.5); ABG Oxygen Saturation 94.3 % (95-100); ABG PCO2 33.6 MM HG (35-48); ABG PH 7.345 (7.35-7.45); ABG PO2 79.8 MM HG (80-95); ABG TCO2 16.7 MMOL/L (23-27)
[2018-12-05 22:25] LABS: Allen Test Positive; Pt O2 Delivery Device CPAP
[2018-12-05 22:27] LABS: ABG HCO3 18.7 MMOL/L (20-26); ABG Oxygen Saturation 98.2 % (95-100); ABG PCO2 35.2 MM HG (35-48); ABG PH 7.325 (7.35-7.45); ABG TCO2 16.8 MMOL/L (23-27)
[2018-12-06 04:12] LABS: Basophils # 0.1 10*3/uL (0.0-0.2); Basophils % 0.4 % (0.0-0.8); Eosinophils % 0.1 % (0.00-10.9); Hematocrit 30.3 VOL% (42.0-52.0); Hemoglobin 9.5 GM/DL (14.0-18.0); Immature Granulocytes % 8.6 %; Immature Granulocytes Absolute 1.21 #; Lymphocytes # 0.6 10*3/uL (1.4-4.0); Lymphocytes % 3.9 % (21.2-54.2); Mean Corpuscular HGB Conc 31.4 GM/DL (32-36); Mean Corpuscular Volume 79.5 FL (87-102); Monocytes % 4.7 % (1.7-12.7); NRBC # 0.68 10*3/uL; Neutrophils % 82.3 % (38.7-73.9); Platelet Count 177 T/CUMM (130-400); Red Blood Count 3.81 MC/CUMM (3.8-5.5); Red Cell Distribution Width 18.4 % (9.3-17.3); White Blood Count 14.2 T/CUMM (4-12)
[2018-12-06 04:31] LABS: Calcium 9.5 MG/DL (8.5-10.1); Osmolality,Calculated 313.7 MOS/KG (273-304)
[2018-12-06 04:35] LABS: INR 3.1
[2018-12-06 04:39] LABS: PT Patient Result 33.6 SECS (9.6-12.2)
[2018-12-06 05:04] LABS: Band Neutrophils 1 % (0-10); Lymphocytes 3 % (20-55); Nucleated Red Blood Cells 8 (0-5); Platelet Estimate Adequate; Polychromasia Few; Segmented Neutrophils 91 % (50-85); Target Cells Few; Total Cells Counted 100
[2018-12-06] MEDS: INSULIN LISPRO 100 UNIT/ML SUBCUT SCH ×4 (09:01→20:59)
[2018-12-06] MEDS: DILTIAZEM CD 180 MG CAPSULE PO SCH (09:01)
[2018-12-06] MEDS: SKIN HEALING OINT (AQUAPHOR) 50 GM TUBE TOP SCH (09:01)
[2018-12-06] MEDS: MULTIVITAMIN (CENTRUM) TABLET PO SCH (09:02)
[2018-12-06] MEDS: PANTOPRAZOLE 40 MG TABLET PO SCH (09:02)
[2018-12-06] MEDS: METOPROLOL TARTRATE 50 MG TABLET PO SCH ×2 (09:02→20:48)
[2018-12-06] MEDS: OXYBUTYNIN 5 MG TABLET PO SCH ×2 (09:02→20:47)
[2018-12-06] MEDS: CEFEPIME 500 MG in SYRINGE 1 EACH IV SCH (13:05)
[2018-12-06] MEDS ORDERED: HEPARIN 10,000 UNIT/10 ML VIAL IV PRN (18:09)
[2018-12-07 04:18] LABS: Basophils % 0.2 % (0.0-0.8); Eosinophils % 0.2 % (0.00-10.9); Hematocrit 31.3 VOL% (42.0-52.0); Hemoglobin 10.1 GM/DL (14.0-18.0); Immature Granulocytes % 3.6 %; Immature Granulocytes Absolute 0.67 #; Lymphocytes # 0.6 10*3/uL (1.4-4.0); Mean Corpuscular HGB Conc 32.3 GM/DL (32-36); Mean Corpuscular Volume 78.4 FL (87-102); Mean Platelet Volume 10.8 FL (9.6-12.0); Monocytes % 6.8 % (1.7-12.7); NRBC # 0.92 10*3/uL; Neutrophils % 86.2 % (38.7-73.9); Platelet Count 174 T/CUMM (130-400); Red Blood Count 3.99 MC/CUMM (3.8-5.5); Red Cell Distribution Width 18.1 % (9.3-17.3); White Blood Count 18.6 T/CUMM (4-12)
[2018-12-07 04:38] LABS: Calcium 9.5 MG/DL (8.5-10.1); Osmolality,Calculated 313.8 MOS/KG (273-304)
[2018-12-07 04:39] LABS: Eosinophils 1 % (0-10); Lymphocytes 4 % (20-55); Nucleated Red Blood Cells 5 (0-5); Segmented Neutrophils 88 % (50-85); Total Cells Counted 100
[2018-12-07 04:48] LABS: Hypochromasia 1+; Ovalocytes Slight; Platelet Estimate Adequate
[2018-12-07 06:29] LABS: INR 8.1
[2018-12-07] MEDS: INSULIN LISPRO 100 UNIT/ML SUBCUT SCH ×4 (08:19→21:39)
[2018-12-07] MEDS: METOPROLOL TARTRATE 50 MG TABLET PO SCH ×3 (09:00→20:15)
[2018-12-07] MEDS: ALBUMIN 25% 25 GM in PREMIX 1 EACH IV PRN ×2 (09:17→11:20)
[2018-12-07] MEDS: SKIN HEALING OINT (AQUAPHOR) 50 GM TUBE TOP SCH (13:00)
[2018-12-07] MEDS: OXYBUTYNIN 5 MG TABLET PO SCH ×3 (13:00→20:15)
[2018-12-07] MEDS: DILTIAZEM CD 180 MG CAPSULE PO SCH (13:07)
[2018-12-07] MEDS: PANTOPRAZOLE 40 MG TABLET PO SCH (13:08)
[2018-12-07] MEDS: MULTIVITAMIN (CENTRUM) TABLET PO SCH (13:08)
[2018-12-07 13:09] LABS: PT Patient Result 122.3 SECS (9.6-12.2); Partial Thromboplastin Time 61.9 SECS (20.8-36.0)
[2018-12-07] MEDS: CEFEPIME 1,000 MG in SYRINGE 1 EACH IV SCH (13:09)
[2018-12-07 13:11] LABS: INR 11.5
[2018-12-07 13:22] LABS: ABG Base Excess -1.7 MMOL/L (-2.5-2.5); ABG HCO3 22.9 MMOL/L (20-26); ABG Oxygen Saturation 94.7 % (95-100); ABG PCO2 33.8 MM HG (35-48); ABG PH 7.424 (7.35-7.45); ABG PO2 78.4 MM HG (80-95); ABG TCO2 20.1 MMOL/L (23-27); Allen Test Positive; Pt O2 Delivery Device BIPAP
[2018-12-07 15:22] LABS: PT Patient Result 85.8 SECS (9.6-12.2); Partial Thromboplastin Time 48.2 SECS (20.8-36.0)
[2018-12-08 04:36] LABS: Basophils % 0.2 % (0.0-0.8); Eosinophils # 0.1 10*3/uL (0.0-0.87); Eosinophils % 0.4 % (0.00-10.9); Hematocrit 30.4 VOL% (42.0-52.0); Hemoglobin 10.1 GM/DL (14.0-18.0); Immature Granulocytes % 5.4 %; Immature Granulocytes Absolute 1.02 #; Lymphocytes # 0.5 10*3/uL (1.4-4.0); Lymphocytes % 2.5 % (21.2-54.2); Mean Corpuscular HGB Conc 33.2 GM/DL (32-36); Mean Platelet Volume 10.8 FL (9.6-12.0); Monocytes % 7.5 % (1.7-12.7); NRBC # 0.77 10*3/uL; Platelet Count 136 T/CUMM (130-400); Red Cell Distribution Width 17.8 % (9.3-17.3)
[2018-12-08 04:54] LABS: Calcium 8.8 MG/DL (8.5-10.1); Osmolality,Calculated 313.7 MOS/KG (273-304); PT Patient Result 81.3 SECS (9.6-12.2)
[2018-12-08 04:55] LABS: INR 7.6
[2018-12-08 05:12] LABS: Lymphocytes 3 % (20-55); Nucleated Red Blood Cells 10 (0-5); Segmented Neutrophils 95 % (50-85); Total Cells Counted 100
[2018-12-08 05:17] LABS: Anisocytosis 1+; Hypochromasia Slight; Microcytosis Slight; Polychromasia Slight
[2018-12-08 05:18] LABS: Platelet Estimate Adequate; Target Cells Slight
[2018-12-08] MEDS: INSULIN LISPRO 100 UNIT/ML SUBCUT SCH ×5 (06:49→21:47)
[2018-12-08] MEDS: MULTIVITAMIN (CENTRUM) TABLET PO SCH (09:18)
[2018-12-08] MEDS: DILTIAZEM CD 180 MG CAPSULE PO SCH (09:18)
[2018-12-08] MEDS: PANTOPRAZOLE 40 MG TABLET PO SCH (09:19)
[2018-12-08] MEDS: METOPROLOL TARTRATE 50 MG TABLET PO SCH (09:19)
[2018-12-08] MEDS: OXYBUTYNIN 5 MG TABLET PO SCH (09:19)
[2018-12-08] MEDS: FAMOTIDINE 20 MG/2 ML VIAL IV SCH ×2 (10:11→21:47)
[2018-12-08] MEDS: CEFEPIME 1,000 MG in SYRINGE 1 EACH IV SCH (13:15)
[2018-12-08] MEDS: SKIN HEALING OINT (AQUAPHOR) 50 GM TUBE TOP SCH (15:00)
[2018-12-09 06:19] LABS: Basophils # 0.1 10*3/uL (0.0-0.2); Basophils % 0.4 % (0.0-0.8); Eosinophils # 0.1 10*3/uL (0.0-0.87); Eosinophils % 0.7 % (0.00-10.9); Hematocrit 30.5 VOL% (42.0-52.0); Hemoglobin 10.2 GM/DL (14.0-18.0); Immature Granulocytes % 8.4 %; Immature Granulocytes Absolute 1.64 #; Lymphocytes # 1.2 10*3/uL (1.4-4.0); Lymphocytes % 6.3 % (21.2-54.2); Mean Corpuscular HGB Conc 33.4 GM/DL (32-36); Mean Corpuscular Volume 75.9 FL (87-102); Mean Platelet Volume 10.7 FL (9.6-12.0); Monocytes % 8.9 % (1.7-12.7); NRBC # 0.83 10*3/uL; Neutrophils % 75.3 % (38.7-73.9); Platelet Count 144 T/CUMM (130-400); Red Blood Count 4.02 MC/CUMM (3.8-5.5); Red Cell Distribution Width 17.9 % (9.3-17.3); White Blood Count 19.5 T/CUMM (4-12)
[2018-12-09 06:34] LABS: PT Patient Result 72.2 SECS (9.6-12.2)
[2018-12-09 06:36] LABS: INR 6.8
[2018-12-09 06:38] LABS: Albumin 2.5 G/DL (3.4-5.0); Bilirubin,Total 3.1 MG/DL (0.2-1.0); Osmolality,Calculated 308.4 MOS/KG (273-304); Total Protein 7.2 G/DL (6.4-8.3)
[2018-12-09 06:42] LABS: Band Neutrophils 5 % (0-10); Eosinophils 1 % (0-10); Lymphocytes 10 % (20-55); Nucleated Red Blood Cells 8 (0-5); Platelet Estimate Adequate; Segmented Neutrophils 77 % (50-85); Total Cells Counted 100
[2018-12-09 06:43] LABS: Anisocytosis 1+; Hypersegmented Neutrophil SLIGHT; Macrocytosis 1+; Poikilocytosis Slight; Reactive Lymphocytes Slight; Target Cells Few
[2018-12-09 06:44] LABS: Burr Cells Few
[2018-12-09] MEDS: INSULIN LISPRO 100 UNIT/ML SUBCUT SCH ×4 (07:57→20:26)
[2018-12-09] MEDS: METOPROLOL TARTRATE 5 MG/5 ML VIAL IV SCH ×4 (09:50→20:31)
[2018-12-09] MEDS: FAMOTIDINE 20 MG/2 ML VIAL IV SCH ×2 (09:53→21:52)
[2018-12-09] MEDS: dilTIAZem Drip 125 MG/125 ML PREMIX IV SCH (10:25)
[2018-12-09] MEDS: CEFEPIME 1,000 MG in SYRINGE 1 EACH IV SCH (13:27)
[2018-12-09] MEDS: SKIN HEALING OINT (AQUAPHOR) 50 GM TUBE TOP SCH (15:30)
[2018-12-09] MEDS ORDERED: VANCOMYCIN INJ 2,250 MG in SODIUM CHLORIDE 0.9% 500 ML IV ONE (18:00)
[2018-12-10] MEDS: METOPROLOL TARTRATE 5 MG/5 ML VIAL IV SCH ×6 (01:48→21:15)
[2018-12-10 05:41] LABS: Basophils # 0.1 10*3/uL (0.0-0.2); Basophils % 0.7 % (0.0-0.8); Eosinophils # 0.1 10*3/uL (0.0-0.87); Eosinophils % 0.8 % (0.00-10.9); Hematocrit 31.8 VOL% (42.0-52.0); Hemoglobin 10.6 GM/DL (14.0-18.0); Immature Granulocytes % 7.4 %; Immature Granulocytes Absolute 1.32 #; Lymphocytes # 1.4 10*3/uL (1.4-4.0); Lymphocytes % 7.9 % (21.2-54.2); Mean Corpuscular HGB Conc 33.3 GM/DL (32-36); Mean Corpuscular Volume 75.4 FL (87-102); Mean Platelet Volume 10.7 FL (9.6-12.0); NRBC # 0.41 10*3/uL; Neutrophils % 75.2 % (38.7-73.9); Platelet Count 145 T/CUMM (130-400); Red Blood Count 4.22 MC/CUMM (3.8-5.5); Red Cell Distribution Width 17.9 % (9.3-17.3); White Blood Count 17.9 T/CUMM (4-12)
[2018-12-10 06:18] LABS: Albumin 2.5 G/DL (3.4-5.0); Bilirubin,Total 2.8 MG/DL (0.2-1.0); Total Protein 7.2 G/DL (6.4-8.3)
[2018-12-10 06:44] LABS: PT Patient Result 68.6 SECS (9.6-12.2)
[2018-12-10 06:47] LABS: INR 6.4
[2018-12-10] MEDS: dilTIAZem Drip 125 MG/125 ML PREMIX IV SCH ×2 (07:10→12:34)
[2018-12-10 10:08] LABS: Band Neutrophils 1 % (0-10); Lymphocytes 5 % (20-55); Metamyelocytes 2 %; Nucleated Red Blood Cells 2 (0-5); Segmented Neutrophils 86 % (50-85); Total Cells Counted 100
[2018-12-10 10:09] LABS: Hypochromasia 2+; Microcytosis 2+; Platelet Estimate Adequate; Polychromasia Slight; Target Cells Few
[2018-12-10] MEDS: FAMOTIDINE 20 MG/2 ML VIAL IV SCH ×2 (10:15→21:13)
[2018-12-10] MEDS: INSULIN LISPRO 100 UNIT/ML SUBCUT SCH ×4 (10:52→21:17)
[2018-12-10] MEDS: SKIN HEALING OINT (AQUAPHOR) 50 GM TUBE TOP SCH (10:52)
[2018-12-10] MEDS ORDERED: FUROSEMIDE 40 MG/4 ML VIAL IV ONE (11:31)
[2018-12-10] MEDS: CEFEPIME 1,000 MG in SYRINGE 1 EACH IV SCH (14:00)
[2018-12-10] MEDS ORDERED: VANCOMYCIN INJ 1,000 MG in SODIUM CHLORIDE 0.9% 250 ML IV PRN (17:00)
[2018-12-11] MEDS: METOPROLOL TARTRATE 5 MG/5 ML VIAL IV SCH ×6 (01:54→21:30)
[2018-12-11 04:51] LABS: Basophils # 0.1 10*3/uL (0.0-0.2); Basophils % 0.3 % (0.0-0.8); Eosinophils # 0.2 10*3/uL (0.0-0.87); Hematocrit 30.3 VOL% (42.0-52.0); Hemoglobin 10.2 GM/DL (14.0-18.0); Immature Granulocytes % 5.2 %; Immature Granulocytes Absolute 0.84 #; Lymphocytes % 6.1 % (21.2-54.2); Mean Corpuscular HGB Conc 33.7 GM/DL (32-36); Mean Corpuscular Volume 75.6 FL (87-102); Mean Platelet Volume 11.1 FL (9.6-12.0); Monocytes % 6.8 % (1.7-12.7); NRBC # 0.14 10*3/uL; Neutrophils % 80.6 % (38.7-73.9); Platelet Count 157 T/CUMM (130-400); Red Blood Count 4.01 MC/CUMM (3.8-5.5); Red Cell Distribution Width 18.5 % (9.3-17.3); White Blood Count 16.3 T/CUMM (4-12)
[2018-12-11] MEDS: dilTIAZem Drip 125 MG/125 ML PREMIX IV SCH ×2 (04:52→10:57)
[2018-12-11 05:04] LABS: INR 4.2
[2018-12-11 05:10] LABS: PT Patient Result 44.8 SECS (9.6-12.2)
[2018-12-11 05:15] LABS: Anisocytosis 1+; Eosinophils 2 % (0-10); Hypochromasia 2+; Lymphocytes 3 % (20-55); Macrocytosis 1+; Segmented Neutrophils 89 % (50-85); Target Cells Few; Total Cells Counted 100
[2018-12-11 05:16] LABS: Ovalocytes Slight; Platelet Estimate Adequate; Polychromasia Slight
[2018-12-11 05:50] LABS: Albumin 2.1 G/DL (3.4-5.0); Bilirubin,Total 2.4 MG/DL (0.2-1.0); Calcium 8.5 MG/DL (8.5-10.1); Osmolality,Calculated 324.1 MOS/KG (273-304); Total Protein 6.7 G/DL (6.4-8.3)
[2018-12-11] MEDS: INSULIN LISPRO 100 UNIT/ML SUBCUT SCH ×4 (07:35→21:32)
[2018-12-11] MEDS: FAMOTIDINE 20 MG/2 ML VIAL IV SCH ×2 (11:03→19:53)
[2018-12-11] MEDS: SKIN HEALING OINT (AQUAPHOR) 50 GM TUBE TOP SCH (11:06)
[2018-12-11] MEDS: DILTIAZEM CD 180 MG CAPSULE PO SCH (11:20)
[2018-12-11] MEDS: CEFEPIME 1,000 MG in SYRINGE 1 EACH IV SCH (14:23)
[2018-12-11] MEDS ORDERED: VANCOMYCIN INJ 1,000 MG in SODIUM CHLORIDE 0.9% 250 ML IV ONE (21:00)
[2018-12-12] MEDS: METOPROLOL TARTRATE 5 MG/5 ML VIAL IV SCH ×6 (02:24→22:48)
[2018-12-12 05:13] LABS: Basophils % 0.2 % (0.0-0.8); Eosinophils # 0.2 10*3/uL (0.0-0.87); Eosinophils % 1.2 % (0.00-10.9); Hematocrit 31.1 VOL% (42.0-52.0); Hemoglobin 10.3 GM/DL (14.0-18.0); Immature Granulocytes % 3.1 %; Immature Granulocytes Absolute 0.52 #; Lymphocytes # 1.1 10*3/uL (1.4-4.0); Lymphocytes % 6.9 % (21.2-54.2); Mean Corpuscular HGB Conc 33.1 GM/DL (32-36); Mean Corpuscular Volume 76.2 FL (87-102); Mean Platelet Volume 11.7 FL (9.6-12.0); Monocytes % 6.4 % (1.7-12.7); NRBC # 0.09 10*3/uL; Neutrophils % 82.2 % (38.7-73.9); Platelet Count 150 T/CUMM (130-400); Red Blood Count 4.08 MC/CUMM (3.8-5.5); Red Cell Distribution Width 19.3 % (9.3-17.3); White Blood Count 16.6 T/CUMM (4-12)
[2018-12-12 05:37] LABS: Albumin 2.3 G/DL (3.4-5.0); Bilirubin,Total 1.8 MG/DL (0.2-1.0); Calcium 8.8 MG/DL (8.5-10.1); Osmolality,Calculated 314.1 MOS/KG (273-304); Total Protein 7.2 G/DL (6.4-8.3)
[2018-12-12 05:39] LABS: Band Neutrophils 1 % (0-10); Eosinophils 1 % (0-10); Hypochromasia 1+; Lymphocytes 10 % (20-55); Ovalocytes Slight; Platelet Estimate Normal; Segmented Neutrophils 86 % (50-85); Total Cells Counted 100
[2018-12-12 05:40] LABS: Macrocytosis Slight
[2018-12-12] MEDS: DILTIAZEM 90 MG TABLET PO SCH ×4 (08:47→21:14)
[2018-12-12] MEDS: INSULIN LISPRO 100 UNIT/ML SUBCUT SCH ×2 (08:47→18:30)
[2018-12-12] MEDS: dilTIAZem Drip 125 MG/125 ML PREMIX IV SCH (08:56)
[2018-12-12] MEDS ORDERED: INSULIN LISPRO 100 UNIT/ML SUBCUT SCH (10:18)
[2018-12-12] MEDS: FAMOTIDINE 20 MG/2 ML VIAL IV SCH (10:26)
[2018-12-12] MEDS: CEFEPIME 1,000 MG in SYRINGE 1 EACH IV SCH (13:41)
[2018-12-12] MEDS ORDERED: ALBUMIN 25% 25 GM in PREMIX 1 EACH IV ONE (14:00)
[2018-12-12] MEDS: FUROSEMIDE 40 MG/4 ML VIAL IV SCH (15:24)
[2018-12-12] MEDS: SKIN HEALING OINT (AQUAPHOR) 50 GM TUBE TOP SCH (15:45)
[2018-12-12] MEDS: METOPROLOL TARTRATE 50 MG TABLET PO SCH (21:15)
[2018-12-12] MEDS: INSULIN GLARGINE 100 UNIT/ML SUBCUT SCH (21:15)
[2018-12-13] MEDS: INSULIN LISPRO 100 UNIT/ML SUBCUT SCH ×4 (00:41→17:42)
[2018-12-13] MEDS: METOPROLOL TARTRATE 5 MG/5 ML VIAL IV SCH ×2 (02:28→05:20)
[2018-12-13 07:07] LABS: Basophils % 0.2 % (0.0-0.8); Eosinophils # 0.2 10*3/uL (0.0-0.87); Eosinophils % 1.7 % (0.00-10.9); Hematocrit 32.5 VOL% (42.0-52.0); Hemoglobin 10.5 GM/DL (14.0-18.0); Immature Granulocytes % 1.8 %; Immature Granulocytes Absolute 0.24 #; Lymphocytes # 0.9 10*3/uL (1.4-4.0); Lymphocytes % 6.7 % (21.2-54.2); Mean Corpuscular HGB Conc 32.3 GM/DL (32-36); Mean Corpuscular Volume 77.6 FL (87-102); Mean Platelet Volume 11.1 FL (9.6-12.0); Monocytes % 5.1 % (1.7-12.7); NRBC # 0.02 10*3/uL; Neutrophils % 84.5 % (38.7-73.9); Platelet Count 167 T/CUMM (130-400); Red Blood Count 4.19 MC/CUMM (3.8-5.5); Red Cell Distribution Width 19.5 % (9.3-17.3); White Blood Count 13.6 T/CUMM (4-12)
[2018-12-13 07:12] LABS: INR 1.8; PT Patient Result 19.2 SECS (9.6-12.2)
[2018-12-13 07:32] LABS: Albumin 2.3 G/DL (3.4-5.0); Bilirubin,Total 1.5 MG/DL (0.2-1.0); Calcium 8.9 MG/DL (8.5-10.1); Osmolality,Calculated 320.7 MOS/KG (273-304); Total Protein 7.2 G/DL (6.4-8.3)
[2018-12-13 07:37] LABS: Prealbumin 7.5 MG/DL (20-40)
[2018-12-13] MEDS: DILTIAZEM 90 MG TABLET PO SCH ×4 (10:06→22:07)
[2018-12-13] MEDS: FAMOTIDINE 20 MG/2 ML VIAL IV SCH (10:07)
[2018-12-13] MEDS: FUROSEMIDE 40 MG/4 ML VIAL IV SCH (10:08)
[2018-12-13] MEDS: METOPROLOL TARTRATE 50 MG TABLET PO SCH ×2 (10:08→22:07)
[2018-12-13] MEDS: SKIN HEALING OINT (AQUAPHOR) 50 GM TUBE TOP SCH (10:10)
[2018-12-13] MEDS: CEFEPIME 1,000 MG in SYRINGE 1 EACH IV SCH (12:31)
[2018-12-13] MEDS ORDERED: VANCOMYCIN INJ 1,000 MG in SODIUM CHLORIDE 0.9% 250 ML IV ONE (17:00)
[2018-12-13] MEDS: WARFARIN 4 MG TABLET PO SCH (17:23)
[2018-12-13] MEDS ORDERED: WARFARIN 5 MG TABLET PO SCH (18:00)
[2018-12-13] MEDS: INSULIN GLARGINE 100 UNIT/ML SUBCUT SCH (22:07)
[2018-12-14] MEDS: INSULIN LISPRO 100 UNIT/ML SUBCUT SCH ×5 (02:21→18:50)
[2018-12-14 04:26] LABS: Allen Test Positive; Pt O2 Delivery Device BIPAP
[2018-12-14 04:28] LABS: ABG Base Excess 3.4 MMOL/L (-2.5-2.5); ABG HCO3 27.4 MMOL/L (20-26); ABG Oxygen Saturation 96.8 % (95-100); ABG PCO2 44.2 MM HG (35-48); ABG PH 7.416 (7.35-7.45); ABG PO2 89.9 MM HG (80-95); ABG TCO2 25.6 MMOL/L (23-27)
[2018-12-14 06:05] LABS: Basophils % 0.2 % (0.0-0.8); Eosinophils # 0.1 10*3/uL (0.0-0.87); Eosinophils % 1.1 % (0.00-10.9); Hemoglobin 10.3 GM/DL (14.0-18.0); Immature Granulocytes % 1.5 %; Immature Granulocytes Absolute 0.17 #; Lymphocytes % 8.9 % (21.2-54.2); Mean Corpuscular HGB Conc 32.2 GM/DL (32-36); Mean Corpuscular Volume 78.6 FL (87-102); Mean Platelet Volume 10.5 FL (9.6-12.0); NRBC # 0.02 10*3/uL; Neutrophils % 80.3 % (38.7-73.9); Platelet Count 130 T/CUMM (130-400); Red Blood Count 4.07 MC/CUMM (3.8-5.5); Red Cell Distribution Width 19.7 % (9.3-17.3)
[2018-12-14 06:19] LABS: Calcium 8.6 MG/DL (8.5-10.1)
[2018-12-14 06:22] LABS: INR 1.6; PT Patient Result 17.2 SECS (9.6-12.2)
[2018-12-14] MEDS: DILTIAZEM 90 MG TABLET PO SCH ×4 (08:29→20:43)
[2018-12-14] MEDS: METOPROLOL TARTRATE 50 MG TABLET PO SCH ×2 (08:29→20:56)
[2018-12-14] MEDS: FUROSEMIDE 40 MG/4 ML VIAL IV SCH (08:32)
[2018-12-14] MEDS: SKIN HEALING OINT (AQUAPHOR) 50 GM TUBE TOP SCH (08:33)
[2018-12-14] MEDS: PANTOPRAZOLE 40 MG TABLET PO SCH (10:36)
[2018-12-14] MEDS: CEFEPIME 1,000 MG in SYRINGE 1 EACH IV SCH (12:56)
[2018-12-14] MEDS: glipiZIDE 5 MG TABLET PO SCH (17:02)
[2018-12-14] MEDS: WARFARIN 4 MG TABLET PO SCH (17:02)
[2018-12-14] MEDS: INSULIN GLARGINE 100 UNIT/ML SUBCUT SCH (20:43)
[2018-12-15] MEDS: INSULIN LISPRO 100 UNIT/ML SUBCUT SCH ×7 (01:02→23:38)
[2018-12-15 04:59] LABS: INR 1.6; PT Patient Result 16.9 SECS (9.6-12.2)
[2018-12-15 05:16] LABS: Calcium 8.8 MG/DL (8.5-10.1)
[2018-12-15] MEDS: glipiZIDE 5 MG TABLET PO SCH ×2 (09:34→19:02)
[2018-12-15] MEDS: METOPROLOL TARTRATE 50 MG TABLET PO SCH ×2 (09:35→20:51)
[2018-12-15] MEDS: PANTOPRAZOLE 40 MG TABLET PO SCH (09:35)
[2018-12-15] MEDS: DILTIAZEM 90 MG TABLET PO SCH ×4 (09:40→20:51)
[2018-12-15] MEDS: FUROSEMIDE 40 MG/4 ML VIAL IV SCH (09:46)
[2018-12-15] MEDS: SKIN HEALING OINT (AQUAPHOR) 50 GM TUBE TOP SCH (10:01)
[2018-12-15] MEDS ORDERED: VANCOMYCIN INJ 1,750 MG in SODIUM CHLORIDE 0.9% 500 ML IV PRN (14:58)
[2018-12-15] MEDS ORDERED: VANCOMYCIN INJ 1,750 MG in SODIUM CHLORIDE 0.9% 500 ML IV ONE (18:00)
[2018-12-15] MEDS: WARFARIN 4 MG TABLET PO SCH (19:09)
[2018-12-15] MEDS: INSULIN GLARGINE 100 UNIT/ML SUBCUT SCH (20:51)
[2018-12-16 03:35] LABS: INR 1.5; PT Patient Result 16.4 SECS (9.6-12.2)
[2018-12-16 03:55] LABS: Calcium 8.8 MG/DL (8.5-10.1); Osmolality,Calculated 304.3 MOS/KG (273-304)
[2018-12-16] MEDS: INSULIN LISPRO 100 UNIT/ML SUBCUT SCH ×5 (04:21→21:35)
[2018-12-16] MEDS ORDERED: FUROSEMIDE 20 MG/2 ML VIAL ONE (08:36)
[2018-12-16] MEDS: DILTIAZEM 90 MG TABLET PO SCH ×4 (08:44→21:37)
[2018-12-16] MEDS: glipiZIDE 5 MG TABLET PO SCH ×2 (08:45→16:58)
[2018-12-16] MEDS: PANTOPRAZOLE 40 MG TABLET PO SCH (08:45)
[2018-12-16] MEDS: METOPROLOL TARTRATE 50 MG TABLET PO SCH ×2 (08:46→21:37)
[2018-12-16] MEDS: FUROSEMIDE 40 MG/4 ML VIAL IV SCH (08:47)
[2018-12-16] MEDS: SKIN HEALING OINT (AQUAPHOR) 50 GM TUBE TOP SCH (12:51)
[2018-12-16] MEDS: CEFEPIME 1,000 MG in SODIUM CHLORIDE 0.9% 100 ML IV SCH ×2 (12:54→21:36)
[2018-12-16] MEDS: WARFARIN 4 MG TABLET PO SCH (16:59)
[2018-12-16] MEDS: INSULIN GLARGINE 100 UNIT/ML SUBCUT SCH (21:35)
[2018-12-17] MEDS: INSULIN LISPRO 100 UNIT/ML SUBCUT SCH ×6 (00:26→20:14)
[2018-12-17] MEDS: CEFEPIME 1,000 MG in SODIUM CHLORIDE 0.9% 100 ML IV SCH ×3 (04:01→19:51)
[2018-12-17 06:33] LABS: Basophils % 0.2 % (0.0-0.8); Eosinophils # 0.1 10*3/uL (0.0-0.87); Eosinophils % 1.4 % (0.00-10.9); Hematocrit 29.1 VOL% (42.0-52.0); Hemoglobin 9.3 GM/DL (14.0-18.0); Immature Granulocytes % 0.8 %; Immature Granulocytes Absolute 0.07 #; Lymphocytes # 1.3 10*3/uL (1.4-4.0); Lymphocytes % 14.7 % (21.2-54.2); Mean Corpuscular Volume 77.6 FL (87-102); Mean Platelet Volume 11.2 FL (9.6-12.0); Monocytes % 9.3 % (1.7-12.7); Neutrophils % 73.6 % (38.7-73.9); Platelet Count 245 T/CUMM (130-400); Red Blood Count 3.75 MC/CUMM (3.8-5.5); Red Cell Distribution Width 19.8 % (9.3-17.3); White Blood Count 9.1 T/CUMM (4-12)
[2018-12-17] MEDS: ACETAMINOPHEN 325 MG TABLET PO PRN ×3 (06:40→20:34)
[2018-12-17 06:49] LABS: Calcium 8.9 MG/DL (8.5-10.1); Osmolality,Calculated 294.8 MOS/KG (273-304)
[2018-12-17] MEDS ORDERED: VANCOMYCIN INJ 1,750 MG in SODIUM CHLORIDE 0.9% 500 ML IV SCH (07:00)
[2018-12-17] MEDS: FUROSEMIDE 40 MG/4 ML VIAL IV SCH (08:31)
[2018-12-17] MEDS: glipiZIDE 5 MG TABLET PO SCH ×2 (08:32→15:59)
[2018-12-17] MEDS: METOPROLOL TARTRATE 50 MG TABLET PO SCH ×2 (08:32→20:32)
[2018-12-17] MEDS: PANTOPRAZOLE 40 MG TABLET PO SCH (08:32)
[2018-12-17] MEDS: DILTIAZEM 90 MG TABLET PO SCH ×4 (08:32→20:32)
[2018-12-17] MEDS: SKIN HEALING OINT (AQUAPHOR) 50 GM TUBE TOP SCH (08:33)
[2018-12-17] MEDS: WARFARIN 4 MG TABLET PO SCH (17:09)
[2018-12-17] MEDS: INSULIN GLARGINE 100 UNIT/ML SUBCUT SCH (20:33)
[2018-12-18] MEDS: INSULIN LISPRO 100 UNIT/ML SUBCUT SCH ×5 (00:56→16:09)
[2018-12-18] MEDS: CEFEPIME 1,000 MG in SODIUM CHLORIDE 0.9% 100 ML IV SCH (03:27)
[2018-12-18 07:47] LABS: INR 1.6; PT Patient Result 17.4 SECS (9.6-12.2)
[2018-12-18] MEDS: glipiZIDE 5 MG TABLET PO SCH ×2 (08:15→16:09)
[2018-12-18] MEDS: DILTIAZEM 90 MG TABLET PO SCH ×3 (08:15→17:29)
[2018-12-18] MEDS: PANTOPRAZOLE 40 MG TABLET PO SCH (08:15)
[2018-12-18] MEDS: FUROSEMIDE 40 MG/4 ML VIAL IV SCH (08:15)
[2018-12-18] MEDS: METOPROLOL TARTRATE 50 MG TABLET PO SCH (08:15)
[2018-12-18] MEDS: SKIN HEALING OINT (AQUAPHOR) 50 GM TUBE TOP SCH (08:16)
[2018-12-18] MEDS: ACETAMINOPHEN 325 MG TABLET PO PRN (08:22)
[2018-12-18] MEDS ORDERED: cefTRIAXone 2,000 MG in SYRINGE 1 EACH IV SCH (09:00)
[2018-12-18] MEDS: WARFARIN 4 MG TABLET PO SCH (17:29)
[2018-12-18 20:50] VITALS: BP 122/72
== END 2018-12-18 19:45 | DRG 871 ==
LOC: EDUNIT# → N.ED 10:40 → N.EDINP 12:36 → SUATTDRO 12:36 → N.CC 14:31 → N.5E 12-16 14:49
PROVIDERS: ADMIT Internal Medicine; ATTEND Internal Medicine

== ENCOUNTER 2019-01-01 18:06 | Inpatient (IN) ==
[2019-01-01] MEDS: DEXTROSE 10% 250 ML BAG IV PRN (21:48)
[2019-01-01 22:09] LABS: Basophils % 0.5 % (0.0-0.8); Eosinophils % 0.5 % (0.00-10.9); Hematocrit 27.9 VOL% (42.0-52.0); Hemoglobin 8.8 GM/DL (14.0-18.0); Immature Granulocytes % 0.9 %; Immature Granulocytes Absolute 0.08 #; Lymphocytes # 1.2 10*3/uL (1.4-4.0); Lymphocytes % 13.4 % (21.2-54.2); Mean Corpuscular HGB Conc 31.5 GM/DL (32-36); Mean Corpuscular Volume 81.3 FL (87-102); Mean Platelet Volume 9.1 FL (9.6-12.0); Neutrophils % 77.7 % (38.7-73.9); Platelet Count 348 T/CUMM (130-400); Red Blood Count 3.43 MC/CUMM (3.8-5.5); Red Cell Distribution Width 19.6 % (9.3-17.3); White Blood Count 8.8 T/CUMM (4-12)
[2019-01-01] MEDS: ONDANSETRON 4 MG/2 ML VIAL IV PRN (22:10)
[2019-01-01] MEDS ORDERED: DEXTROSE 50% 25 GM/50 ML VIAL IV PRN (22:19)
[2019-01-01] MEDS ORDERED: GLUCAGON 1 MG VIAL IM PRN (22:19)
[2019-01-01] MEDS ORDERED: ALBUTEROL 2.5 MG/3 ML NEB RESP TX PRN (22:19)
[2019-01-01] MEDS ORDERED: LACTULOSE 20 GM/30 ML UDCUP PO PRN (22:23)
[2019-01-01 22:31] LABS: Calcium 8.6 MG/DL (8.5-10.1); Osmolality,Calculated 299.7 MOS/KG (273-304)
[2019-01-01] MEDS: INSULIN REGULAR 100 UNIT/ML SUBCUT SCH (22:36)
[2019-01-01 22:38] LABS: Apearance,Urine CLOUDY (Clear); Bacteria,Urine Occasional /HPF (Few); Bilirubin,Urine Negative (Negative); Blood, Urine Large mg/dL (Negative); Glucose,Urine (UA) Negative (Negative); Hyaline Casts,Urine 22 /LPF (0-3); Ketones,Urine 5 mg/dL (Negative); Nitrite,Urine Negative (Negative); Protein,Urine 100 MG/DL; RBC,Urine 73 /HPF (0-4); Squamous Epithelial Cell,Urine Occasional /HPF (0-10); Urine Color Amber (Yellow); Urine Specific Gravity 1.017 (1.001-1.035); Urine Urobilinogen < 2.0 EU/DL (0.2-1.0); WBC,Urine 133 /HPF (0-6)
[2019-01-01] MEDS: METOPROLOL TARTRATE 50 MG TABLET PO SCH (22:52)
[2019-01-01] MEDS: PROMETHAZINE 25 MG/1 ML VIAL IM PRN (23:05)
[2019-01-02] MEDS: ONDANSETRON 4 MG/2 ML VIAL IV PRN (04:17)
[2019-01-02] MEDS ORDERED: CLINDAMYCIN INJ 600 MG in PREMIX 1 EACH IV SCH (06:00)
[2019-01-02 06:26] LABS: Basophils % 0.4 % (0.0-0.8); Eosinophils % 0.1 % (0.00-10.9); Hematocrit 30.3 VOL% (42.0-52.0); Hemoglobin 9.5 GM/DL (14.0-18.0); Immature Granulocytes % 0.9 %; Lymphocytes # 0.7 10*3/uL (1.4-4.0); Lymphocytes % 6.2 % (21.2-54.2); Mean Corpuscular HGB Conc 31.4 GM/DL (32-36); Mean Platelet Volume 9.1 FL (9.6-12.0); Monocytes % 5.3 % (1.7-12.7); Neutrophils % 87.1 % (38.7-73.9); Platelet Count 343 T/CUMM (130-400); Red Blood Count 3.74 MC/CUMM (3.8-5.5); Red Cell Distribution Width 19.7 % (9.3-17.3); White Blood Count 10.9 T/CUMM (4-12)
[2019-01-02 06:41] LABS: PT Patient Result 21.2 SECS (9.6-12.2)
[2019-01-02 06:53] LABS: Albumin 2.6 G/DL (3.4-5.0); Bilirubin,Total 0.5 MG/DL (0.2-1.0); Calcium 8.7 MG/DL (8.5-10.1); Osmolality,Calculated 300.8 MOS/KG (273-304); Total Protein 7.9 G/DL (6.4-8.3)
[2019-01-02] MEDS: INSULIN REGULAR 100 UNIT/ML SUBCUT SCH ×4 (07:41→21:57)
[2019-01-02] MEDS: glipiZIDE 5 MG TABLET PO SCH ×2 (07:41→16:21)
[2019-01-02] MEDS ORDERED: cefTRIAXone 2,000 MG in SYRINGE 1 EACH IV SCH (09:00)
[2019-01-02] MEDS ORDERED: FUROSEMIDE 80 MG TABLET PO SCH (09:00)
[2019-01-02] MEDS ORDERED: NON-FORMULARY MEDICATION (Ceftriaxone 2 GM) IV SCH (09:00)
[2019-01-02] MEDS ORDERED: FAMOTIDINE 20 MG TABLET PO SCH (09:00)
[2019-01-02] MEDS ORDERED: SODIUM CHLORIDE 0.9% 1,000 ML IV PRN (09:23)
[2019-01-02] MEDS: METOPROLOL TARTRATE 50 MG TABLET PO SCH ×2 (09:34→21:51)
[2019-01-02] MEDS: OXYBUTYNIN 5 MG TABLET PO SCH ×2 (09:34→21:51)
[2019-01-02] MEDS: DILTIAZEM CD 180 MG CAPSULE PO SCH (09:34)
[2019-01-02] MEDS ORDERED: MAGNESIUM SULF RIDER 2 GM in PREMIX 1 EACH IV ONE (10:00)
[2019-01-02] MEDS: PIPERACILLIN/TAZOBACTAM 3,375 MG in SODIUM CHLORIDE 0.9% 100 ML IV SCH ×2 (10:01→23:33)
[2019-01-02] MEDS: PANTOPRAZOLE 40 MG VIAL IV SCH ×2 (10:01→21:47)
[2019-01-02] MEDS: CLOTRIMAZOLE 1% CREAM 15 GM TUBE TOP SCH (10:05)
[2019-01-02] MEDS: SKIN HEALING OINT (AQUAPHOR) 50 GM TUBE TOP SCH (10:05)
[2019-01-02] MEDS ORDERED: hydrALAZINE 20 MG/1 ML VIAL IV PRN (14:44)
[2019-01-02] MEDS: NITROGLYCERIN 2% OINT 1 INCH/GM PACK TOP SCH ×2 (15:05→21:57)
[2019-01-02] MEDS ORDERED: FUROSEMIDE 40 MG/4 ML VIAL IV ONE (15:26)
[2019-01-02] MEDS: ALBUTEROL 2.5 MG/3 ML NEB RESP TX SCH ×3 (15:26→23:53)
[2019-01-02 16:12] LABS: Allen Test Positive; Pt O2 Delivery Device BIPAP
[2019-01-02 16:13] LABS: ABG Base Excess -2.3 MMOL/L (-2.5-2.5); ABG HCO3 25.3 MMOL/L (20-26); ABG Oxygen Saturation 84.5 % (95-100); ABG PCO2 58.2 MM HG (35-48); ABG PH 7.256 (7.35-7.45); ABG PO2 56.4 MM HG (80-95); ABG TCO2 27.1 MMOL/L (23-27)
[2019-01-02 19:18] LABS: Hematocrit 28.4 VOL% (42.0-52.0); Hemoglobin 8.8 GM/DL (14.0-18.0)
[2019-01-02] MEDS: MORPHINE 4 MG/1 ML VIAL IV PRN (20:23)
[2019-01-02] MEDS: FUROSEMIDE 40 MG/4 ML VIAL IV SCH (21:42)
[2019-01-02 23:57] LABS: Hematocrit 25.9 VOL% (42.0-52.0)
[2019-01-03] MEDS: NITROGLYCERIN 2% OINT 1 INCH/GM PACK TOP SCH ×4 (03:11→22:00)
[2019-01-03] MEDS: ALBUTEROL 2.5 MG/3 ML NEB RESP TX SCH ×6 (04:15→23:27)
[2019-01-03 04:49] LABS: INR 3.6
[2019-01-03 04:51] LABS: Basophils % 0.3 % (0.0-0.8); Eosinophils % 0.1 % (0.00-10.9); Immature Granulocytes % 0.6 %; Immature Granulocytes Absolute 0.09 #; Lymphocytes # 0.9 10*3/uL (1.4-4.0); Lymphocytes % 6.2 % (21.2-54.2); Mean Corpuscular Volume 80.1 FL (87-102); Mean Platelet Volume 9.3 FL (9.6-12.0); Monocytes % 4.8 % (1.7-12.7); Platelet Count 277 T/CUMM (130-400); Red Blood Count 3.12 MC/CUMM (3.8-5.5); Red Cell Distribution Width 19.3 % (9.3-17.3); White Blood Count 14.3 T/CUMM (4-12)
[2019-01-03 05:03] LABS: PT Patient Result 38.7 SECS (9.6-12.2)
[2019-01-03 05:11] LABS: Calcium 8.5 MG/DL (8.5-10.1)
[2019-01-03 05:12] LABS: Osmolality,Calculated 307.5 MOS/KG (273-304)
[2019-01-03 05:38] LABS: Hypochromasia 2+; Platelet Estimate Normal
[2019-01-03 05:39] LABS: Ovalocytes 1+; Target Cells Few
[2019-01-03] MEDS: SKIN HEALING OINT (AQUAPHOR) 50 GM TUBE TOP SCH (08:45)
[2019-01-03] MEDS: glipiZIDE 5 MG TABLET PO SCH ×2 (08:45→15:43)
[2019-01-03] MEDS: OXYBUTYNIN 5 MG TABLET PO SCH ×2 (08:47→21:59)
[2019-01-03] MEDS: METOPROLOL TARTRATE 50 MG TABLET PO SCH ×2 (08:47→22:00)
[2019-01-03] MEDS ORDERED: DILTIAZEM 50 MG/10 ML VIAL IV ONE (09:00)
[2019-01-03] MEDS: INSULIN REGULAR 100 UNIT/ML SUBCUT SCH ×4 (09:09→21:59)
[2019-01-03] MEDS: PANTOPRAZOLE 40 MG VIAL IV SCH ×2 (09:12→22:05)
[2019-01-03] MEDS: FUROSEMIDE 40 MG/4 ML VIAL IV SCH ×3 (09:14→22:00)
[2019-01-03 09:15] LABS: Hemoglobin 7.9 GM/DL (14.0-18.0)
[2019-01-03] MEDS: CLOTRIMAZOLE 1% CREAM 15 GM TUBE TOP SCH (09:18)
[2019-01-03] MEDS: dilTIAZem Drip 125 MG/125 ML PREMIX IV SCH ×2 (09:25→22:34)
[2019-01-03] MEDS ORDERED: SODIUM CHLORIDE 0.9% 1,000 ML IV PRN (09:51)
[2019-01-03] MEDS: PIPERACILLIN/TAZOBACTAM 3,375 MG in SODIUM CHLORIDE 0.9% 100 ML IV SCH ×2 (11:11→22:33)
[2019-01-03] MEDS ORDERED: PHYTONADIONE 5 MG/5 ML ORAL.SYR PO ONE (15:25)
[2019-01-03 17:02] LABS: Hematocrit 27.2 VOL% (42.0-52.0); Hemoglobin 8.7 GM/DL (14.0-18.0)
[2019-01-04] MEDS: ALBUTEROL 2.5 MG/3 ML NEB RESP TX SCH ×5 (03:30→19:29)
[2019-01-04 03:35] LABS: ABG Base Excess 2.8 MMOL/L (-2.5-2.5); ABG HCO3 27.1 MMOL/L (20-26); ABG PCO2 40.4 MM HG (35-48); ABG PH 7.445 (7.35-7.45); ABG PO2 64.3 MM HG (80-95); ABG TCO2 28.4 MMOL/L (23-27); Allen Test Positive; Pt O2 Delivery Device BIPAP
[2019-01-04] MEDS: NITROGLYCERIN 2% OINT 1 INCH/GM PACK TOP SCH ×4 (04:17→21:05)
[2019-01-04 05:00] LABS: Basophils # 0.1 10*3/uL (0.0-0.2); Basophils % 0.4 % (0.0-0.8); Eosinophils # 0.2 10*3/uL (0.0-0.87); Eosinophils % 1.2 % (0.00-10.9); Hematocrit 25.4 VOL% (42.0-52.0); Hemoglobin 8.2 GM/DL (14.0-18.0); Immature Granulocytes % 0.6 %; Immature Granulocytes Absolute 0.09 #; Lymphocytes # 1.4 10*3/uL (1.4-4.0); Mean Corpuscular HGB Conc 32.3 GM/DL (32-36); Mean Corpuscular Volume 79.6 FL (87-102); Monocytes % 6.1 % (1.7-12.7); Neutrophils % 81.7 % (38.7-73.9); Platelet Count 204 T/CUMM (130-400); Red Blood Count 3.19 MC/CUMM (3.8-5.5); Red Cell Distribution Width 19.3 % (9.3-17.3)
[2019-01-04 05:17] LABS: INR 2.3
[2019-01-04 05:18] LABS: PT Patient Result 24.3 SECS (9.6-12.2)
[2019-01-04 05:20] LABS: Calcium 8.6 MG/DL (8.5-10.1); Osmolality,Calculated 300.5 MOS/KG (273-304)
[2019-01-04] MEDS: dilTIAZem Drip 125 MG/125 ML PREMIX IV SCH (09:00)
[2019-01-04] MEDS: PIPERACILLIN/TAZOBACTAM 3,375 MG in SODIUM CHLORIDE 0.9% 100 ML IV SCH (09:00)
[2019-01-04] MEDS: FUROSEMIDE 40 MG/4 ML VIAL IV SCH ×3 (09:00→21:07)
[2019-01-04] MEDS: OXYBUTYNIN 5 MG TABLET PO SCH ×2 (09:01→20:47)
[2019-01-04] MEDS: glipiZIDE 5 MG TABLET PO SCH ×2 (09:01→16:07)
[2019-01-04] MEDS: PANTOPRAZOLE 40 MG VIAL IV SCH ×2 (09:01→21:13)
[2019-01-04] MEDS: METOPROLOL TARTRATE 50 MG TABLET PO SCH ×2 (09:01→21:04)
[2019-01-04] MEDS: DILTIAZEM CD 180 MG CAPSULE PO SCH (09:10)
[2019-01-04] MEDS: INSULIN REGULAR 100 UNIT/ML SUBCUT SCH ×4 (09:25→21:21)
[2019-01-04] MEDS ORDERED: FLUCONAZOLE INJ 200 MG in PREMIX 1 EACH IV SCH (09:30)
[2019-01-04] MEDS: FLUCONAZOLE 200 MG TABLET PO SCH (11:28)
[2019-01-04] MEDS: CLOTRIMAZOLE 1% CREAM 15 GM TUBE TOP SCH (11:29)
[2019-01-04] MEDS: SKIN HEALING OINT (AQUAPHOR) 50 GM TUBE TOP SCH (11:29)
[2019-01-04] MEDS ORDERED: HEPARIN 10,000 UNIT/10 ML VIAL IV SCH (13:00)
[2019-01-04] MEDS ORDERED: WARFARIN 4 MG TABLET PO SCH (18:00)
[2019-01-05] MEDS: ALBUTEROL 2.5 MG/3 ML NEB RESP TX SCH ×7 (00:35→23:50)
[2019-01-05] MEDS: NITROGLYCERIN 2% OINT 1 INCH/GM PACK TOP SCH ×4 (03:00→21:49)
[2019-01-05 05:03] LABS: INR 1.5; PT Patient Result 15.7 SECS (9.6-12.2)
[2019-01-05] MEDS: glipiZIDE 5 MG TABLET PO SCH ×2 (08:08→16:49)
[2019-01-05] MEDS: INSULIN REGULAR 100 UNIT/ML SUBCUT SCH ×4 (08:08→22:07)
[2019-01-05 10:48] LABS: Albumin 2.4 G/DL (3.4-5.0); Bilirubin,Direct 0.26 MG/DL (0.0-0.20); Bilirubin,Indirect 0.2 MG/DL (0.0-1.0); Bilirubin,Total 0.5 MG/DL (0.2-1.0); Total Protein 7.3 G/DL (6.4-8.3)
[2019-01-05] MEDS: FUROSEMIDE 40 MG/4 ML VIAL IV SCH ×3 (13:22→21:57)
[2019-01-05] MEDS: DILTIAZEM CD 180 MG CAPSULE PO SCH (13:23)
[2019-01-05] MEDS: PANTOPRAZOLE 40 MG VIAL IV SCH ×2 (13:23→21:51)
[2019-01-05] MEDS: FLUCONAZOLE 200 MG TABLET PO SCH (13:24)
[2019-01-05] MEDS: CLOTRIMAZOLE 1% CREAM 15 GM TUBE TOP SCH (13:24)
[2019-01-05] MEDS: METOPROLOL TARTRATE 50 MG TABLET PO SCH ×2 (13:24→21:49)
[2019-01-05] MEDS: OXYBUTYNIN 5 MG TABLET PO SCH ×2 (13:24→21:49)
[2019-01-05] MEDS: SKIN HEALING OINT (AQUAPHOR) 50 GM TUBE TOP SCH (13:27)
[2019-01-05] MEDS: hydrALAZINE 10 MG TABLET PO SCH ×2 (16:47→21:48)
[2019-01-06] MEDS: ALBUTEROL 2.5 MG/3 ML NEB RESP TX SCH ×5 (03:21→19:57)
[2019-01-06 05:08] LABS: INR 1.3; PT Patient Result 14.5 SECS (9.6-12.2)
[2019-01-06] MEDS: NITROGLYCERIN 2% OINT 1 INCH/GM PACK TOP SCH ×4 (05:08→20:38)
[2019-01-06] MEDS: hydrALAZINE 10 MG TABLET PO SCH (08:50)
[2019-01-06] MEDS: FUROSEMIDE 40 MG/4 ML VIAL IV SCH (08:51)
[2019-01-06] MEDS: METOPROLOL TARTRATE 50 MG TABLET PO SCH ×2 (08:51→20:35)
[2019-01-06] MEDS: PANTOPRAZOLE 40 MG VIAL IV SCH ×2 (09:04→20:35)
[2019-01-06] MEDS: FLUCONAZOLE 200 MG TABLET PO SCH (09:05)
[2019-01-06] MEDS: SKIN HEALING OINT (AQUAPHOR) 50 GM TUBE TOP SCH (09:05)
[2019-01-06] MEDS: OXYBUTYNIN 5 MG TABLET PO SCH ×2 (09:05→20:35)
[2019-01-06] MEDS: INSULIN REGULAR 100 UNIT/ML SUBCUT SCH ×4 (09:05→20:38)
[2019-01-06] MEDS: glipiZIDE 5 MG TABLET PO SCH ×2 (09:05→16:47)
[2019-01-06] MEDS: ISOSORBIDE MONONITRATE 30 MG TABLET PO SCH ×2 (09:06→09:30)
[2019-01-06] MEDS: CLOTRIMAZOLE 1% CREAM 15 GM TUBE TOP SCH (09:06)
[2019-01-06] MEDS: DILTIAZEM CD 180 MG CAPSULE PO SCH (09:30)
[2019-01-07] MEDS: ALBUTEROL 2.5 MG/3 ML NEB RESP TX SCH ×6 (00:34→19:38)
[2019-01-07] MEDS: NITROGLYCERIN 2% OINT 1 INCH/GM PACK TOP SCH ×5 (03:48→22:13)
[2019-01-07] MEDS: INSULIN REGULAR 100 UNIT/ML SUBCUT SCH ×4 (09:04→22:01)
[2019-01-07] MEDS: METOPROLOL TARTRATE 50 MG TABLET PO SCH ×2 (09:07→22:02)
[2019-01-07] MEDS: OXYBUTYNIN 5 MG TABLET PO SCH ×2 (09:08→22:02)
[2019-01-07] MEDS: DILTIAZEM CD 180 MG CAPSULE PO SCH (09:09)
[2019-01-07] MEDS: FLUCONAZOLE 200 MG TABLET PO SCH (09:14)
[2019-01-07] MEDS: glipiZIDE 5 MG TABLET PO SCH ×2 (09:15→18:25)
[2019-01-07] MEDS: ISOSORBIDE MONONITRATE 30 MG TABLET PO SCH (09:20)
[2019-01-07] MEDS: CLOTRIMAZOLE 1% CREAM 15 GM TUBE TOP SCH (09:22)
[2019-01-07] MEDS: SKIN HEALING OINT (AQUAPHOR) 50 GM TUBE TOP SCH (09:22)
[2019-01-07 09:24] LABS: Basophils # 0.1 10*3/uL (0.0-0.2); Basophils % 0.5 % (0.0-0.8); Eosinophils # 0.5 10*3/uL (0.0-0.87); Eosinophils % 4.1 % (0.00-10.9); Hematocrit 27.1 VOL% (42.0-52.0); Hemoglobin 8.5 GM/DL (14.0-18.0); Immature Granulocytes % 2.4 %; Lymphocytes # 2.6 10*3/uL (1.4-4.0); Lymphocytes % 20.6 % (21.2-54.2); Mean Corpuscular HGB Conc 31.4 GM/DL (32-36); Mean Corpuscular Volume 81.6 FL (87-102); Monocytes % 8.5 % (1.7-12.7); Neutrophils % 63.9 % (38.7-73.9); Platelet Count 169 T/CUMM (130-400); Red Blood Count 3.32 MC/CUMM (3.8-5.5); Red Cell Distribution Width 19.9 % (9.3-17.3); White Blood Count 12.5 T/CUMM (4-12)
[2019-01-07] MEDS: PANTOPRAZOLE 40 MG VIAL IV SCH ×2 (09:25→22:02)
[2019-01-07 09:31] LABS: INR 1.4; PT Patient Result 14.7 SECS (9.6-12.2)
[2019-01-07 10:16] LABS: Calcium 8.6 MG/DL (8.5-10.1); Osmolality,Calculated 289.1 MOS/KG (273-304)
[2019-01-07 12:52] LABS: Hepatitis B Core IgM Quant 0.13 Index; Hepatitis B Surface Ag Result Negative (Negative); Hepatitis C Virus Ab Quant > 11.00 Index; Hepatitis C Virus Ab Result Positive (Negative)
[2019-01-08] MEDS: ALBUTEROL 2.5 MG/3 ML NEB RESP TX SCH ×6 (00:21→21:18)
[2019-01-08] MEDS: NITROGLYCERIN 2% OINT 1 INCH/GM PACK TOP SCH ×4 (03:10→21:34)
[2019-01-08] MEDS ORDERED: SODIUM CHLORIDE 0.9% 250 ML IV SCH (08:00)
[2019-01-08 08:26] LABS: Basophils # 0.1 10*3/uL (0.0-0.2); Basophils % 0.5 % (0.0-0.8); Eosinophils # 0.7 10*3/uL (0.0-0.87); Eosinophils % 6.2 % (0.00-10.9); Hemoglobin 8.3 GM/DL (14.0-18.0); Immature Granulocytes % 3.6 %; Immature Granulocytes Absolute 0.39 #; Lymphocytes % 18.1 % (21.2-54.2); Mean Corpuscular HGB Conc 31.9 GM/DL (32-36); Mean Corpuscular Volume 80.7 FL (87-102); Mean Platelet Volume 9.9 FL (9.6-12.0); Neutrophils % 63.6 % (38.7-73.9); Platelet Count 158 T/CUMM (130-400); Red Blood Count 3.22 MC/CUMM (3.8-5.5); Red Cell Distribution Width 19.8 % (9.3-17.3); White Blood Count 10.9 T/CUMM (4-12)
[2019-01-08 08:35] LABS: INR 1.3
[2019-01-08 08:44] LABS: Albumin 2.3 G/DL (3.4-5.0); Bilirubin,Total 0.5 MG/DL (0.2-1.0); Calcium 8.5 MG/DL (8.5-10.1); Osmolality,Calculated 278.2 MOS/KG (273-304); Total Protein 7.1 G/DL (6.4-8.3)
[2019-01-08] MEDS: PANTOPRAZOLE 40 MG VIAL IV SCH ×2 (09:46→21:34)
[2019-01-08] MEDS: DILTIAZEM CD 180 MG CAPSULE PO SCH (09:47)
[2019-01-08] MEDS: ISOSORBIDE MONONITRATE 30 MG TABLET PO SCH (09:48)
[2019-01-08] MEDS: METOPROLOL TARTRATE 50 MG TABLET PO SCH ×2 (09:49→21:33)
[2019-01-08] MEDS: OXYBUTYNIN 5 MG TABLET PO SCH ×2 (09:49→21:33)
[2019-01-08] MEDS: INSULIN REGULAR 100 UNIT/ML SUBCUT SCH ×4 (09:50→21:34)
[2019-01-08] MEDS: SKIN HEALING OINT (AQUAPHOR) 50 GM TUBE TOP SCH (09:51)
[2019-01-08] MEDS: glipiZIDE 5 MG TABLET PO SCH ×2 (09:54→15:31)
[2019-01-08] MEDS: CLOTRIMAZOLE 1% CREAM 15 GM TUBE TOP SCH (10:04)
[2019-01-08] MEDS: FLUCONAZOLE 200 MG TABLET PO SCH (10:06)
[2019-01-08] MEDS ORDERED: LIDOCAINE 100 MG/5 ML SYRINGE ONE (13:34)
[2019-01-08] MEDS ORDERED: PROPOFOL 200 MG/20 ML VIAL IV ONE (13:34)
[2019-01-08] MEDS ORDERED: ETOMIDATE 20 MG/10 ML VIAL IV ONE (13:34)
[2019-01-09] MEDS: ALBUTEROL 2.5 MG/3 ML NEB RESP TX SCH ×7 (00:17→23:37)
[2019-01-09] MEDS: MORPHINE 4 MG/1 ML VIAL IV PRN ×2 (00:42→10:34)
[2019-01-09] MEDS: NITROGLYCERIN 2% OINT 1 INCH/GM PACK TOP SCH ×5 (02:23→21:08)
[2019-01-09] MEDS: INSULIN REGULAR 100 UNIT/ML SUBCUT SCH ×4 (09:35→21:07)
[2019-01-09] MEDS: glipiZIDE 5 MG TABLET PO SCH (09:35)
[2019-01-09] MEDS: PANTOPRAZOLE 40 MG VIAL IV SCH ×2 (09:45→21:08)
[2019-01-09] MEDS: OXYBUTYNIN 5 MG TABLET PO SCH ×2 (09:46→21:07)
[2019-01-09] MEDS: ISOSORBIDE MONONITRATE 30 MG TABLET PO SCH (09:46)
[2019-01-09] MEDS: DILTIAZEM CD 180 MG CAPSULE PO SCH (09:46)
[2019-01-09] MEDS: FLUCONAZOLE 200 MG TABLET PO SCH (09:46)
[2019-01-09] MEDS: METOPROLOL TARTRATE 50 MG TABLET PO SCH ×2 (09:46→21:07)
[2019-01-09] MEDS: DEXTROSE 10% 250 ML BAG IV PRN (12:05)
[2019-01-09] MEDS: CLOTRIMAZOLE 1% CREAM 15 GM TUBE TOP SCH (19:31)
[2019-01-09] MEDS: SKIN HEALING OINT (AQUAPHOR) 50 GM TUBE TOP SCH (19:31)
[2019-01-10] MEDS: NITROGLYCERIN 2% OINT 1 INCH/GM PACK TOP SCH ×4 (02:46→21:13)
[2019-01-10] MEDS: ALBUTEROL 2.5 MG/3 ML NEB RESP TX SCH ×6 (03:12→23:15)
[2019-01-10 06:27] LABS: Calcium 8.3 MG/DL (8.5-10.1); Osmolality,Calculated 270.2 MOS/KG (273-304)
[2019-01-10] MEDS: INSULIN REGULAR 100 UNIT/ML SUBCUT SCH ×4 (08:18→21:13)
[2019-01-10] MEDS: SKIN HEALING OINT (AQUAPHOR) 50 GM TUBE TOP SCH (08:18)
[2019-01-10] MEDS: METOPROLOL TARTRATE 50 MG TABLET PO SCH ×2 (08:21→21:12)
[2019-01-10] MEDS: ISOSORBIDE MONONITRATE 30 MG TABLET PO SCH (08:22)
[2019-01-10] MEDS: DILTIAZEM CD 180 MG CAPSULE PO SCH (08:22)
[2019-01-10] MEDS: OXYBUTYNIN 5 MG TABLET PO SCH ×2 (08:22→21:12)
[2019-01-10] MEDS: FLUCONAZOLE 200 MG TABLET PO SCH (08:23)
[2019-01-10] MEDS: CLOTRIMAZOLE 1% CREAM 15 GM TUBE TOP SCH (08:27)
[2019-01-10] MEDS: PANTOPRAZOLE 40 MG TABLET PO SCH (08:27)
[2019-01-10] MEDS: DEXTROSE 10% 1,000 ML IV SCH (12:17)
[2019-01-10] MEDS: ACETAMINOPHEN 325 MG TABLET PO PRN (21:12)
[2019-01-11] MEDS: NITROGLYCERIN 2% OINT 1 INCH/GM PACK TOP SCH ×4 (02:01→21:40)
[2019-01-11] MEDS: ALBUTEROL 2.5 MG/3 ML NEB RESP TX SCH ×7 (02:02→23:16)
[2019-01-11 07:24] LABS: Calcium 8.4 MG/DL (8.5-10.1); Osmolality,Calculated 261.9 MOS/KG (273-304)
[2019-01-11] MEDS: INSULIN REGULAR 100 UNIT/ML SUBCUT SCH ×4 (07:51→21:40)
[2019-01-11] MEDS: PANTOPRAZOLE 40 MG TABLET PO SCH (08:44)
[2019-01-11] MEDS: FLUCONAZOLE 200 MG TABLET PO SCH (08:44)
[2019-01-11] MEDS: SKIN HEALING OINT (AQUAPHOR) 50 GM TUBE TOP SCH (08:44)
[2019-01-11] MEDS: METOPROLOL TARTRATE 50 MG TABLET PO SCH ×2 (08:45→21:40)
[2019-01-11] MEDS: DILTIAZEM CD 180 MG CAPSULE PO SCH (08:45)
[2019-01-11] MEDS: OXYBUTYNIN 5 MG TABLET PO SCH ×2 (08:47→21:40)
[2019-01-11] MEDS: ISOSORBIDE MONONITRATE 30 MG TABLET PO SCH (08:47)
[2019-01-11] MEDS: CLOTRIMAZOLE 1% CREAM 15 GM TUBE TOP SCH (08:57)
[2019-01-11] MEDS ORDERED: ceFAZolin 1,000 MG in SYRINGE 1 EACH IV ONE (09:59)
[2019-01-11] MEDS: ACETAMINOPHEN 325 MG TABLET PO PRN ×2 (10:48→16:48)
[2019-01-11] MEDS: DEXTROSE 10% 1,000 ML IV SCH (15:54)
[2019-01-12] MEDS: ALBUTEROL 2.5 MG/3 ML NEB RESP TX SCH ×5 (03:14→19:43)
[2019-01-12] MEDS: NITROGLYCERIN 2% OINT 1 INCH/GM PACK TOP SCH ×4 (04:15→21:38)
[2019-01-12] MEDS ORDERED: HEPARIN 5,000 UNIT/1 ML VIAL ONE (05:29)
[2019-01-12] MEDS ORDERED: BUPIVACAINE MPF 0.25% 30 ML VIAL ONE ×2 (05:29→06:04)
[2019-01-12] MEDS ORDERED: LIDOCAINE 1% 20 ML VIAL ONE (05:29)
[2019-01-12 05:55] LABS: Calcium 8.9 MG/DL (8.5-10.1); Osmolality,Calculated 268.9 MOS/KG (273-304)
[2019-01-12] MEDS ORDERED: LIDOCAINE 2% 5 ML VIAL ONE (06:44)
[2019-01-12] MEDS ORDERED: PROPOFOL 200 MG/20 ML VIAL IV ONE (06:44)
[2019-01-12] MEDS ORDERED: ETOMIDATE 40 MG/20 ML VIAL IV ONE (06:44)
[2019-01-12] MEDS: INSULIN REGULAR 100 UNIT/ML SUBCUT SCH ×4 (08:34→21:00)
[2019-01-12] MEDS: DILTIAZEM CD 180 MG CAPSULE PO SCH (12:35)
[2019-01-12] MEDS: METOPROLOL TARTRATE 50 MG TABLET PO SCH (12:45)
[2019-01-12] MEDS: ISOSORBIDE MONONITRATE 30 MG TABLET PO SCH (12:45)
[2019-01-12] MEDS: SKIN HEALING OINT (AQUAPHOR) 50 GM TUBE TOP SCH (12:45)
[2019-01-12] MEDS: CLOTRIMAZOLE 1% CREAM 15 GM TUBE TOP SCH (12:46)
[2019-01-12] MEDS: OXYBUTYNIN 5 MG TABLET PO SCH ×2 (12:46→21:38)
[2019-01-12] MEDS: PANTOPRAZOLE 40 MG TABLET PO SCH (12:46)
[2019-01-12] MEDS: FLUCONAZOLE 200 MG TABLET PO SCH (12:54)
[2019-01-12] MEDS: DEXTROSE 10% 1,000 ML IV SCH (14:00)
[2019-01-12] MEDS: ACETAMINOPHEN 325 MG TABLET PO PRN (21:38)
[2019-01-13] MEDS: ALBUTEROL 2.5 MG/3 ML NEB RESP TX SCH ×7 (00:12→23:11)
[2019-01-13] MEDS: NITROGLYCERIN 2% OINT 1 INCH/GM PACK TOP SCH ×5 (01:22→21:28)
[2019-01-13] MEDS: METOPROLOL TARTRATE 50 MG TABLET PO SCH ×3 (01:22→21:17)
[2019-01-13 05:37] LABS: Basophils % 0.5 % (0.0-0.8); Eosinophils # 0.7 10*3/uL (0.0-0.87); Eosinophils % 8.5 % (0.00-10.9); Hematocrit 21.2 VOL% (42.0-52.0); Hemoglobin 6.5 GM/DL (14.0-18.0); Immature Granulocytes Absolute 0.08 #; Lymphocytes # 1.2 10*3/uL (1.4-4.0); Lymphocytes % 15.9 % (21.2-54.2); Mean Corpuscular HGB Conc 30.7 GM/DL (32-36); Mean Corpuscular Volume 84.1 FL (87-102); Monocytes % 7.4 % (1.7-12.7); Neutrophils % 66.7 % (38.7-73.9); Platelet Count 215 T/CUMM (130-400); Red Blood Count 2.52 MC/CUMM (3.8-5.5); Red Cell Distribution Width 20.4 % (9.3-17.3); White Blood Count 7.8 T/CUMM (4-12)
[2019-01-13 05:52] LABS: Osmolality,Calculated 285.3 MOS/KG (273-304)
[2019-01-13] MEDS ORDERED: MAGNESIUM SULF RIDER 2 GM in PREMIX 1 EACH IV ONE (07:27)
[2019-01-13] MEDS ORDERED: SODIUM CHLORIDE 0.9% 1,000 ML IV PRN (07:27)
[2019-01-13] MEDS: SKIN HEALING OINT (AQUAPHOR) 50 GM TUBE TOP SCH (08:28)
[2019-01-13] MEDS: INSULIN REGULAR 100 UNIT/ML SUBCUT SCH ×4 (08:28→21:18)
[2019-01-13] MEDS: FLUCONAZOLE 200 MG TABLET PO SCH (08:29)
[2019-01-13] MEDS: ISOSORBIDE MONONITRATE 30 MG TABLET PO SCH (08:29)
[2019-01-13] MEDS: DILTIAZEM CD 180 MG CAPSULE PO SCH (08:30)
[2019-01-13] MEDS: PANTOPRAZOLE 40 MG TABLET PO SCH (08:33)
[2019-01-13] MEDS: ACETAMINOPHEN 325 MG TABLET PO PRN ×3 (08:33→21:19)
[2019-01-13] MEDS: OXYBUTYNIN 5 MG TABLET PO SCH ×2 (08:33→21:17)
[2019-01-13] MEDS: CLOTRIMAZOLE 1% CREAM 15 GM TUBE TOP SCH (08:45)
[2019-01-13 09:23] LABS: Hematocrit 28.7 VOL% (42.0-52.0)
[2019-01-13 09:39] LABS: Hemoglobin 8.8 GM/DL (14.0-18.0)
[2019-01-13] MEDS: methylPREDNISolone SOD SUC 40 MG/1 ML VIAL IV SCH ×2 (13:43→17:31)
[2019-01-14] MEDS: methylPREDNISolone SOD SUC 40 MG/1 ML VIAL IV SCH ×3 (01:07→20:22)
[2019-01-14] MEDS: NITROGLYCERIN 2% OINT 1 INCH/GM PACK TOP SCH ×4 (03:41→20:23)
[2019-01-14] MEDS: ALBUTEROL 2.5 MG/3 ML NEB RESP TX SCH ×6 (03:45→23:00)
[2019-01-14 04:55] LABS: Basophils % 0.2 % (0.0-0.8); Eosinophils % 0.2 % (0.00-10.9); Hematocrit 26.3 VOL% (42.0-52.0); Hemoglobin 8.4 GM/DL (14.0-18.0); Immature Granulocytes % 1.2 %; Immature Granulocytes Absolute 0.06 #; Lymphocytes # 0.5 10*3/uL (1.4-4.0); Lymphocytes % 8.7 % (21.2-54.2); Mean Corpuscular HGB Conc 31.9 GM/DL (32-36); Mean Corpuscular Volume 80.2 FL (87-102); Mean Platelet Volume 9.4 FL (9.6-12.0); Monocytes % 1.2 % (1.7-12.7); Neutrophils % 88.5 % (38.7-73.9); Platelet Count 321 T/CUMM (130-400); Red Blood Count 3.28 MC/CUMM (3.8-5.5); Red Cell Distribution Width 19.9 % (9.3-17.3); White Blood Count 5.2 T/CUMM (4-12)
[2019-01-14 05:12] LABS: Calcium 8.4 MG/DL (8.5-10.1); Osmolality,Calculated 269.4 MOS/KG (273-304)
[2019-01-14] MEDS: INSULIN REGULAR 100 UNIT/ML SUBCUT SCH ×4 (08:09→20:20)
[2019-01-14] MEDS: OXYBUTYNIN 5 MG TABLET PO SCH ×2 (08:29→20:22)
[2019-01-14] MEDS: FLUCONAZOLE 200 MG TABLET PO SCH (08:29)
[2019-01-14] MEDS: PANTOPRAZOLE 40 MG TABLET PO SCH (08:29)
[2019-01-14] MEDS: ACETAMINOPHEN 325 MG TABLET PO PRN ×2 (08:32→19:24)
[2019-01-14] MEDS: SKIN HEALING OINT (AQUAPHOR) 50 GM TUBE TOP SCH (10:25)
[2019-01-14] MEDS: CLOTRIMAZOLE 1% CREAM 15 GM TUBE TOP SCH (10:25)
[2019-01-14] MEDS: DILTIAZEM CD 180 MG CAPSULE PO SCH (11:34)
[2019-01-14] MEDS: diphenhydrAMINE CAP 25 MG CAPSULE PO PRN ×2 (11:34→17:16)
[2019-01-14] MEDS: ISOSORBIDE MONONITRATE 30 MG TABLET PO SCH (11:34)
[2019-01-14] MEDS: METOPROLOL TARTRATE 50 MG TABLET PO SCH ×2 (11:36→20:22)
[2019-01-15] MEDS: NITROGLYCERIN 2% OINT 1 INCH/GM PACK TOP SCH ×4 (02:39→20:21)
[2019-01-15] MEDS: ALBUTEROL 2.5 MG/3 ML NEB RESP TX SCH ×6 (03:00→23:56)
[2019-01-15 05:40] LABS: Calcium 8.4 MG/DL (8.5-10.1); Osmolality,Calculated 269.5 MOS/KG (273-304)
[2019-01-15] MEDS: methylPREDNISolone SOD SUC 40 MG/1 ML VIAL IV SCH ×2 (09:33→20:21)
[2019-01-15] MEDS: METOPROLOL TARTRATE 50 MG TABLET PO SCH ×2 (09:33→20:21)
[2019-01-15] MEDS: FLUCONAZOLE 200 MG TABLET PO SCH (09:34)
[2019-01-15] MEDS: ISOSORBIDE MONONITRATE 30 MG TABLET PO SCH (09:34)
[2019-01-15] MEDS: OXYBUTYNIN 5 MG TABLET PO SCH ×2 (09:35→20:21)
[2019-01-15] MEDS: DILTIAZEM CD 180 MG CAPSULE PO SCH (09:35)
[2019-01-15] MEDS: PANTOPRAZOLE 40 MG TABLET PO SCH (09:35)
[2019-01-15] MEDS: SKIN HEALING OINT (AQUAPHOR) 50 GM TUBE TOP SCH (09:36)
[2019-01-15] MEDS: INSULIN REGULAR 100 UNIT/ML SUBCUT SCH ×4 (09:36→20:52)
[2019-01-15] MEDS: CLOTRIMAZOLE 1% CREAM 15 GM TUBE TOP SCH (09:37)
[2019-01-15] MEDS: diphenhydrAMINE CAP 25 MG CAPSULE PO PRN ×2 (14:35→22:51)
[2019-01-15] MEDS: ACETAMINOPHEN 325 MG TABLET PO PRN ×2 (14:35→20:22)
[2019-01-16] MEDS: ALBUTEROL 2.5 MG/3 ML NEB RESP TX SCH ×6 (03:12→23:15)
[2019-01-16] MEDS: NITROGLYCERIN 2% OINT 1 INCH/GM PACK TOP SCH ×4 (04:05→20:43)
[2019-01-16] MEDS: ACETAMINOPHEN 325 MG TABLET PO PRN ×3 (06:31→20:37)
[2019-01-16 06:51] LABS: Hematocrit 28.3 VOL% (42.0-52.0); Hemoglobin 9.1 GM/DL (14.0-18.0); Immature Granulocytes % 0.2 %; Immature Granulocytes Absolute 0.01 #; Lymphocytes # 0.4 10*3/uL (1.4-4.0); Lymphocytes % 8.3 % (21.2-54.2); Mean Corpuscular HGB Conc 32.2 GM/DL (32-36); Mean Corpuscular Volume 78.8 FL (87-102); Mean Platelet Volume 9.2 FL (9.6-12.0); Monocytes % 6.6 % (1.7-12.7); Neutrophils % 84.9 % (38.7-73.9); Platelet Count 400 T/CUMM (130-400); Red Blood Count 3.59 MC/CUMM (3.8-5.5); White Blood Count 4.7 T/CUMM (4-12)
[2019-01-16 07:14] LABS: Calcium 8.7 MG/DL (8.5-10.1); Osmolality,Calculated 279.4 MOS/KG (273-304)
[2019-01-16] MEDS: methylPREDNISolone SOD SUC 40 MG/1 ML VIAL IV SCH ×2 (08:49→20:36)
[2019-01-16] MEDS: INSULIN REGULAR 100 UNIT/ML SUBCUT SCH ×4 (08:49→20:42)
[2019-01-16] MEDS: PANTOPRAZOLE 40 MG TABLET PO SCH (08:50)
[2019-01-16] MEDS: DILTIAZEM CD 180 MG CAPSULE PO SCH (08:50)
[2019-01-16] MEDS: METOPROLOL TARTRATE 50 MG TABLET PO SCH ×2 (08:50→20:36)
[2019-01-16] MEDS: FLUCONAZOLE 200 MG TABLET PO SCH (08:50)
[2019-01-16] MEDS: OXYBUTYNIN 5 MG TABLET PO SCH ×2 (08:50→20:37)
[2019-01-16] MEDS: ISOSORBIDE MONONITRATE 30 MG TABLET PO SCH (08:50)
[2019-01-16] MEDS: CLOTRIMAZOLE 1% CREAM 15 GM TUBE TOP SCH (08:51)
[2019-01-16] MEDS: SKIN HEALING OINT (AQUAPHOR) 50 GM TUBE TOP SCH (08:51)
[2019-01-16] MEDS: diphenhydrAMINE CAP 25 MG CAPSULE PO PRN ×2 (09:50→20:36)
[2019-01-16] MEDS: DEXTROSE 10% 1,000 ML IV SCH (10:05)
[2019-01-16] MEDS: ONDANSETRON 4 MG/2 ML VIAL IV PRN (13:46)
[2019-01-17] MEDS: ALBUTEROL 2.5 MG/3 ML NEB RESP TX SCH ×6 (03:11→22:41)
[2019-01-17] MEDS: NITROGLYCERIN 2% OINT 1 INCH/GM PACK TOP SCH ×4 (03:54→21:12)
[2019-01-17 07:03] LABS: Calcium 8.2 MG/DL (8.5-10.1); Osmolality,Calculated 275.7 MOS/KG (273-304)
[2019-01-17] MEDS: PROMETHAZINE 25 MG/1 ML VIAL IM PRN (07:22)
[2019-01-17] MEDS: INSULIN REGULAR 100 UNIT/ML SUBCUT SCH ×4 (09:13→21:11)
[2019-01-17] MEDS: SKIN HEALING OINT (AQUAPHOR) 50 GM TUBE TOP SCH (09:14)
[2019-01-17] MEDS: CLOTRIMAZOLE 1% CREAM 15 GM TUBE TOP SCH (09:15)
[2019-01-17] MEDS: methylPREDNISolone SOD SUC 40 MG/1 ML VIAL IV SCH ×2 (09:16→21:11)
[2019-01-17] MEDS: OXYBUTYNIN 5 MG TABLET PO SCH ×2 (12:32→21:11)
[2019-01-17] MEDS: ACETAMINOPHEN 325 MG TABLET PO PRN (12:32)
[2019-01-17] MEDS: ONDANSETRON 4 MG/2 ML VIAL IV PRN (12:32)
[2019-01-17] MEDS: PANTOPRAZOLE 40 MG TABLET PO SCH (12:33)
[2019-01-17] MEDS: diphenhydrAMINE CAP 25 MG CAPSULE PO PRN (12:33)
[2019-01-17] MEDS: METOPROLOL TARTRATE 50 MG TABLET PO SCH ×2 (12:33→21:11)
[2019-01-17] MEDS: DILTIAZEM CD 180 MG CAPSULE PO SCH (12:33)
[2019-01-17] MEDS: ISOSORBIDE MONONITRATE 30 MG TABLET PO SCH (12:34)
[2019-01-17] MEDS: FLUCONAZOLE 200 MG TABLET PO SCH (12:34)
[2019-01-18] MEDS: NITROGLYCERIN 2% OINT 1 INCH/GM PACK TOP SCH ×4 (03:46→20:20)
[2019-01-18] MEDS: ALBUTEROL 2.5 MG/3 ML NEB RESP TX SCH ×5 (03:55→20:40)
[2019-01-18 04:40] LABS: Hematocrit 29.4 VOL% (42.0-52.0); Hemoglobin 9.3 GM/DL (14.0-18.0); Immature Granulocytes % 0.5 %; Immature Granulocytes Absolute 0.03 #; Lymphocytes # 0.5 10*3/uL (1.4-4.0); Lymphocytes % 9.3 % (21.2-54.2); Mean Corpuscular HGB Conc 31.6 GM/DL (32-36); Mean Corpuscular Volume 79.7 FL (87-102); Mean Platelet Volume 8.8 FL (9.6-12.0); Monocytes % 7.4 % (1.7-12.7); Neutrophils % 82.8 % (38.7-73.9); Platelet Count 427 T/CUMM (130-400); Red Blood Count 3.69 MC/CUMM (3.8-5.5); White Blood Count 5.8 T/CUMM (4-12)
[2019-01-18 05:35] LABS: Albumin 2.3 G/DL (3.4-5.0); Bilirubin,Direct 0.37 MG/DL (0.0-0.20); Bilirubin,Indirect 0.3 MG/DL (0.0-1.0); Bilirubin,Total 0.7 MG/DL (0.2-1.0); Calcium 8.1 MG/DL (8.5-10.1); Osmolality,Calculated 284.4 MOS/KG (273-304); Total Protein 6.1 G/DL (6.4-8.3)
[2019-01-18] MEDS: INSULIN REGULAR 100 UNIT/ML SUBCUT SCH ×4 (08:15→20:26)
[2019-01-18] MEDS: DILTIAZEM CD 180 MG CAPSULE PO SCH (08:34)
[2019-01-18] MEDS: METOPROLOL TARTRATE 50 MG TABLET PO SCH (08:35)
[2019-01-18] MEDS: OXYBUTYNIN 5 MG TABLET PO SCH (08:35)
[2019-01-18] MEDS: ISOSORBIDE MONONITRATE 30 MG TABLET PO SCH (08:35)
[2019-01-18] MEDS ORDERED: DILTIAZEM 90 MG TABLET PO SCH (12:00)
[2019-01-18] MEDS: METOPROLOL TARTRATE 5 MG/5 ML VIAL IV SCH ×2 (12:00→20:16)
[2019-01-18] MEDS: methylPREDNISolone SOD SUC 40 MG/1 ML VIAL IV SCH ×2 (12:23→20:19)
[2019-01-18] MEDS ORDERED: ALTEPLASE 2 MG VIAL INTRACATH ONE ×2 (12:30)
[2019-01-18] MEDS: CLOTRIMAZOLE 1% CREAM 15 GM TUBE TOP SCH (15:33)
[2019-01-18] MEDS: PANTOPRAZOLE 40 MG VIAL IV SCH (15:33)
[2019-01-18] MEDS: SKIN HEALING OINT (AQUAPHOR) 50 GM TUBE TOP SCH (15:33)
[2019-01-18] MEDS: MORPHINE 4 MG/1 ML VIAL IV PRN (16:30)
[2019-01-18] MEDS: diphenhydrAMINE 50 MG/1 ML VIAL IV PRN (20:19)
[2019-01-19] MEDS: ALBUTEROL 2.5 MG/3 ML NEB RESP TX SCH ×7 (00:21→23:14)
[2019-01-19] MEDS: NITROGLYCERIN 2% OINT 1 INCH/GM PACK TOP SCH ×4 (03:02→20:49)
[2019-01-19] MEDS: METOPROLOL TARTRATE 5 MG/5 ML VIAL IV SCH ×3 (03:02→20:48)
[2019-01-19 05:04] LABS: Hematocrit 32.3 VOL% (42.0-52.0); Hemoglobin 9.9 GM/DL (14.0-18.0); Immature Granulocytes % 0.4 %; Immature Granulocytes Absolute 0.03 #; Lymphocytes # 0.2 10*3/uL (1.4-4.0); Lymphocytes % 3.5 % (21.2-54.2); Mean Corpuscular HGB Conc 30.7 GM/DL (32-36); Mean Corpuscular Volume 82.4 FL (87-102); Mean Platelet Volume 8.7 FL (9.6-12.0); Monocytes % 1.3 % (1.7-12.7); Neutrophils % 94.8 % (38.7-73.9); Platelet Count 362 T/CUMM (130-400); Red Blood Count 3.92 MC/CUMM (3.8-5.5); Red Cell Distribution Width 20.3 % (9.3-17.3); White Blood Count 6.8 T/CUMM (4-12)
[2019-01-19 05:27] LABS: Calcium 8.5 MG/DL (8.5-10.1); Osmolality,Calculated 294.5 MOS/KG (273-304)
[2019-01-19 06:24] LABS: Anisocytosis 2+; Hypochromasia 2+; Lymphocytes 1 % (20-55); Segmented Neutrophils 96 % (50-85); Total Cells Counted 100
[2019-01-19 06:25] LABS: Microcytosis 1+; Polychromasia Few; Target Cells 1+
[2019-01-19 06:29] LABS: Platelet Estimate Normal
[2019-01-19] MEDS: INSULIN REGULAR 100 UNIT/ML SUBCUT SCH ×4 (08:43→20:48)
[2019-01-19] MEDS: methylPREDNISolone SOD SUC 40 MG/1 ML VIAL IV SCH (08:43)
[2019-01-19] MEDS: PANTOPRAZOLE 40 MG VIAL IV SCH (08:44)
[2019-01-19] MEDS: SKIN HEALING OINT (AQUAPHOR) 50 GM TUBE TOP SCH (08:44)
[2019-01-19] MEDS: CLOTRIMAZOLE 1% CREAM 15 GM TUBE TOP SCH (08:44)
[2019-01-19] MEDS: MORPHINE 4 MG/1 ML VIAL IV PRN (17:43)
[2019-01-19] MEDS: diphenhydrAMINE 50 MG/1 ML VIAL IV PRN (17:48)
[2019-01-20] MEDS: METOPROLOL TARTRATE 5 MG/5 ML VIAL IV SCH (03:06)
[2019-01-20] MEDS: NITROGLYCERIN 2% OINT 1 INCH/GM PACK TOP SCH ×4 (03:07→20:21)
[2019-01-20] MEDS: ALBUTEROL 2.5 MG/3 ML NEB RESP TX SCH ×5 (03:30→19:07)
[2019-01-20 04:23] LABS: Hematocrit 29.5 VOL% (42.0-52.0); Hemoglobin 9.4 GM/DL (14.0-18.0); Immature Granulocytes % 1.1 %; Immature Granulocytes Absolute 0.08 #; Lymphocytes # 0.5 10*3/uL (1.4-4.0); Lymphocytes % 6.9 % (21.2-54.2); Mean Corpuscular HGB Conc 31.9 GM/DL (32-36); Mean Corpuscular Volume 79.5 FL (87-102); Mean Platelet Volume 8.5 FL (9.6-12.0); Monocytes % 7.4 % (1.7-12.7); Neutrophils % 84.6 % (38.7-73.9); Platelet Count 352 T/CUMM (130-400); Red Blood Count 3.71 MC/CUMM (3.8-5.5); Red Cell Distribution Width 19.7 % (9.3-17.3)
[2019-01-20 04:53] LABS: Calcium 8.3 MG/DL (8.5-10.1); Osmolality,Calculated 301.4 MOS/KG (273-304)
[2019-01-20] MEDS: INSULIN REGULAR 100 UNIT/ML SUBCUT SCH ×4 (08:56→20:21)
[2019-01-20] MEDS: CLOTRIMAZOLE 1% CREAM 15 GM TUBE TOP SCH (08:57)
[2019-01-20] MEDS: PANTOPRAZOLE 40 MG VIAL IV SCH (08:57)
[2019-01-20] MEDS: SKIN HEALING OINT (AQUAPHOR) 50 GM TUBE TOP SCH (08:57)
[2019-01-20] MEDS ORDERED: methylPREDNISolone SOD SUC 40 MG/1 ML VIAL IV SCH (09:00)
[2019-01-20] MEDS ORDERED: METOPROLOL TARTRATE 5 MG/5 ML VIAL IV PRN (09:18)
[2019-01-20] MEDS: METOPROLOL TARTRATE 25 MG TABLET PO SCH ×2 (09:58→20:21)
[2019-01-20] MEDS: INSULIN ASPART PROTAMINE/ASPART 70/30 100 UNIT/ML SUBCUT SCH (17:35)
[2019-01-20] MEDS: diphenhydrAMINE CAP 25 MG CAPSULE PO PRN (17:53)
[2019-01-20] MEDS: MORPHINE 4 MG/1 ML VIAL IV PRN (19:28)
[2019-01-20] MEDS ORDERED: INSULIN GLARGINE 100 UNIT/ML SUBCUT SCH (21:00)
[2019-01-21] MEDS: ALBUTEROL 2.5 MG/3 ML NEB RESP TX SCH ×6 (00:44→19:44)
[2019-01-21] MEDS: NITROGLYCERIN 2% OINT 1 INCH/GM PACK TOP SCH ×3 (02:57→21:29)
[2019-01-21 05:27] LABS: Eosinophils % 0.2 % (0.00-10.9); Hemoglobin 9.4 GM/DL (14.0-18.0); Immature Granulocytes % 0.4 %; Immature Granulocytes Absolute 0.03 #; Lymphocytes # 0.8 10*3/uL (1.4-4.0); Lymphocytes % 10.2 % (21.2-54.2); Mean Corpuscular HGB Conc 32.4 GM/DL (32-36); Mean Corpuscular Volume 79.5 FL (87-102); Mean Platelet Volume 8.9 FL (9.6-12.0); Monocytes % 8.5 % (1.7-12.7); Neutrophils % 80.7 % (38.7-73.9); Platelet Count 315 T/CUMM (130-400); Red Blood Count 3.65 MC/CUMM (3.8-5.5); Red Cell Distribution Width 19.9 % (9.3-17.3); White Blood Count 8.2 T/CUMM (4-12)
[2019-01-21 05:40] LABS: Calcium 8.5 MG/DL (8.5-10.1); Osmolality,Calculated 298.5 MOS/KG (273-304)
[2019-01-21] MEDS: CLOTRIMAZOLE 1% CREAM 15 GM TUBE TOP SCH (15:30)
[2019-01-21] MEDS: SKIN HEALING OINT (AQUAPHOR) 50 GM TUBE TOP SCH (15:30)
[2019-01-21] MEDS: INSULIN REGULAR 100 UNIT/ML SUBCUT SCH ×3 (18:17→21:29)
[2019-01-21] MEDS: INSULIN ASPART PROTAMINE/ASPART 70/30 100 UNIT/ML SUBCUT SCH ×2 (18:18→18:37)
[2019-01-21] MEDS: PANTOPRAZOLE 40 MG VIAL IV SCH ×2 (18:19→18:39)
[2019-01-21] MEDS: METOPROLOL TARTRATE 25 MG TABLET PO SCH ×2 (18:19→21:29)
[2019-01-21] MEDS: predniSONE 20 MG TABLET PO SCH ×2 (18:19→18:39)
[2019-01-21] MEDS: ACETAMINOPHEN 325 MG TABLET PO PRN (18:46)
[2019-01-21] MEDS: diphenhydrAMINE 50 MG/1 ML VIAL IV PRN (18:47)
[2019-01-22] MEDS: ALBUTEROL 2.5 MG/3 ML NEB RESP TX SCH ×6 (00:04→19:21)
[2019-01-22 05:44] LABS: Hematocrit 29.8 VOL% (42.0-52.0); Hemoglobin 9.6 GM/DL (14.0-18.0); Immature Granulocytes % 0.5 %; Immature Granulocytes Absolute 0.03 #; Lymphocytes # 0.3 10*3/uL (1.4-4.0); Lymphocytes % 5.1 % (21.2-54.2); Mean Corpuscular HGB Conc 32.2 GM/DL (32-36); Mean Corpuscular Volume 80.5 FL (87-102); Monocytes % 3.1 % (1.7-12.7); Neutrophils % 91.3 % (38.7-73.9); Platelet Count 261 T/CUMM (130-400); Red Cell Distribution Width 20.3 % (9.3-17.3); White Blood Count 6.5 T/CUMM (4-12)
[2019-01-22 05:52] LABS: Osmolality,Calculated 295.7 MOS/KG (273-304)
[2019-01-22 06:10] LABS: Hypochromasia 1+; Lymphocytes 3 % (20-55); Platelet Estimate Adequate; Segmented Neutrophils 95 % (50-85); Total Cells Counted 100
[2019-01-22] MEDS: NITROGLYCERIN 2% OINT 1 INCH/GM PACK TOP SCH ×3 (06:10→17:01)
[2019-01-22] MEDS: PANTOPRAZOLE 40 MG VIAL IV SCH (08:17)
[2019-01-22] MEDS: predniSONE 20 MG TABLET PO SCH (08:18)
[2019-01-22] MEDS: INSULIN REGULAR 100 UNIT/ML SUBCUT SCH ×4 (08:18→22:34)
[2019-01-22] MEDS: INSULIN ASPART PROTAMINE/ASPART 70/30 100 UNIT/ML SUBCUT SCH ×2 (08:18→16:57)
[2019-01-22] MEDS: SKIN HEALING OINT (AQUAPHOR) 50 GM TUBE TOP SCH (08:19)
[2019-01-22] MEDS: CLOTRIMAZOLE 1% CREAM 15 GM TUBE TOP SCH (08:19)
[2019-01-22] MEDS: METOPROLOL TARTRATE 25 MG TABLET PO SCH ×2 (08:19→22:35)
[2019-01-22] MEDS: diphenhydrAMINE CAP 25 MG CAPSULE PO PRN ×2 (08:25→16:56)
[2019-01-22] MEDS: ACETAMINOPHEN 325 MG TABLET PO PRN ×2 (08:25→16:56)
[2019-01-22] MEDS: DILTIAZEM 30 MG TABLET PO SCH ×3 (12:31→22:34)
[2019-01-22] MEDS ORDERED: TUBERCULIN SKIN TEST 0.1 ML SYRINGE INTRADERM ONE (15:28)
[2019-01-22] MEDS: LIDOCAINE 5% PATCH TRANSDERM SCH (16:57)
[2019-01-23] MEDS: ALBUTEROL 2.5 MG/3 ML NEB RESP TX SCH ×7 (00:23→23:56)
[2019-01-23] MEDS: NITROGLYCERIN 2% OINT 1 INCH/GM PACK TOP SCH ×4 (01:31→17:32)
[2019-01-23 06:29] LABS: Calcium 8.2 MG/DL (8.5-10.1); Osmolality,Calculated 300.4 MOS/KG (273-304)
[2019-01-23 06:33] LABS: Hematocrit 31.1 VOL% (42.0-52.0); Hemoglobin 9.4 GM/DL (14.0-18.0); Immature Granulocytes % 0.7 %; Immature Granulocytes Absolute 0.04 #; Lymphocytes # 0.5 10*3/uL (1.4-4.0); Lymphocytes % 8.1 % (21.2-54.2); Mean Corpuscular HGB Conc 30.2 GM/DL (32-36); Mean Corpuscular Volume 85.2 FL (87-102); Mean Platelet Volume 9.8 FL (9.6-12.0); Monocytes % 5.4 % (1.7-12.7); Neutrophils % 85.8 % (38.7-73.9); Platelet Count 212 T/CUMM (130-400); Red Blood Count 3.65 MC/CUMM (3.8-5.5); Red Cell Distribution Width 21.1 % (9.3-17.3)
[2019-01-23] MEDS: SKIN HEALING OINT (AQUAPHOR) 50 GM TUBE TOP SCH (10:58)
[2019-01-23] MEDS: INSULIN ASPART PROTAMINE/ASPART 70/30 100 UNIT/ML SUBCUT SCH ×2 (10:58→16:22)
[2019-01-23] MEDS: INSULIN REGULAR 100 UNIT/ML SUBCUT SCH ×4 (10:58→21:04)
[2019-01-23] MEDS: DILTIAZEM 30 MG TABLET PO SCH ×4 (10:59→21:03)
[2019-01-23] MEDS: PANTOPRAZOLE 40 MG VIAL IV SCH (10:59)
[2019-01-23] MEDS: METOPROLOL TARTRATE 25 MG TABLET PO SCH ×2 (10:59→21:03)
[2019-01-23] MEDS: LIDOCAINE 5% PATCH TRANSDERM SCH (10:59)
[2019-01-23] MEDS: predniSONE 20 MG TABLET PO SCH (10:59)
[2019-01-23] MEDS: CLOTRIMAZOLE 1% CREAM 15 GM TUBE TOP SCH (10:59)
[2019-01-23] MEDS: diphenhydrAMINE CAP 25 MG CAPSULE PO PRN (14:23)
[2019-01-23] MEDS: traMADol 50 MG TABLET PO PRN ×2 (14:23→21:02)
[2019-01-24] MEDS: NITROGLYCERIN 2% OINT 1 INCH/GM PACK TOP SCH ×4 (01:02→17:58)
[2019-01-24] MEDS: ALBUTEROL 2.5 MG/3 ML NEB RESP TX SCH ×6 (03:17→23:34)
[2019-01-24] MEDS: DILTIAZEM 30 MG TABLET PO SCH ×4 (08:45→21:15)
[2019-01-24] MEDS: INSULIN ASPART PROTAMINE/ASPART 70/30 100 UNIT/ML SUBCUT SCH (08:45)
[2019-01-24] MEDS: INSULIN REGULAR 100 UNIT/ML SUBCUT SCH ×4 (08:45→22:44)
[2019-01-24] MEDS: predniSONE 20 MG TABLET PO SCH (08:46)
[2019-01-24] MEDS: METOPROLOL TARTRATE 25 MG TABLET PO SCH ×2 (08:46→21:15)
[2019-01-24] MEDS: PANTOPRAZOLE 40 MG TABLET PO SCH (08:46)
[2019-01-24] MEDS: SKIN HEALING OINT (AQUAPHOR) 50 GM TUBE TOP SCH (08:46)
[2019-01-24] MEDS: CLOTRIMAZOLE 1% CREAM 15 GM TUBE TOP SCH (08:46)
[2019-01-24] MEDS: LIDOCAINE 5% PATCH TRANSDERM SCH (08:49)
[2019-01-24] MEDS: traMADol 50 MG TABLET PO PRN ×2 (17:20→21:14)
[2019-01-24] MEDS ORDERED: INSULIN GLARGINE 100 UNIT/ML SUBCUT SCH (21:00)
[2019-01-25] MEDS: NITROGLYCERIN 2% OINT 1 INCH/GM PACK TOP SCH ×3 (01:45→13:42)
[2019-01-25] MEDS: ALBUTEROL 2.5 MG/3 ML NEB RESP TX SCH ×3 (03:15→11:50)
[2019-01-25 04:53] LABS: Basophils % 0.1 % (0.0-0.8); Hematocrit 28.8 VOL% (42.0-52.0); Immature Granulocytes % 0.6 %; Immature Granulocytes Absolute 0.04 #; Lymphocytes # 0.7 10*3/uL (1.4-4.0); Mean Corpuscular HGB Conc 31.3 GM/DL (32-36); Mean Corpuscular Volume 81.1 FL (87-102); Mean Platelet Volume 9.2 FL (9.6-12.0); Monocytes % 9.4 % (1.7-12.7); Neutrophils % 79.9 % (38.7-73.9); Platelet Count 220 T/CUMM (130-400); Red Blood Count 3.55 MC/CUMM (3.8-5.5); Red Cell Distribution Width 20.6 % (9.3-17.3); White Blood Count 6.7 T/CUMM (4-12)
[2019-01-25 05:19] LABS: Calcium 7.9 MG/DL (8.5-10.1); Osmolality,Calculated 290.2 MOS/KG (273-304)
[2019-01-25 07:27] VITALS: BP 132/74
[2019-01-25] MEDS: INSULIN REGULAR 100 UNIT/ML SUBCUT SCH ×2 (13:37→13:48)
[2019-01-25] MEDS: METOPROLOL TARTRATE 25 MG TABLET PO SCH (13:38)
[2019-01-25] MEDS: LIDOCAINE 5% PATCH TRANSDERM SCH (13:38)
[2019-01-25] MEDS: DILTIAZEM 30 MG TABLET PO SCH ×2 (13:38→14:04)
[2019-01-25] MEDS: SKIN HEALING OINT (AQUAPHOR) 50 GM TUBE TOP SCH (13:38)
[2019-01-25] MEDS: PANTOPRAZOLE 40 MG TABLET PO SCH (13:38)
[2019-01-25] MEDS: CLOTRIMAZOLE 1% CREAM 15 GM TUBE TOP SCH (13:42)
[2019-01-25] MEDS ORDERED: INFLUENZA VIRUS VACCINE 0.5 ML SYRINGE IM ONE (13:47)
[2019-01-25] MEDS ORDERED: PNEUMOCOCCAL VACCINE (13 VALENT) 0.5 ML SYRINGE IM ONE (13:47)
== END 2019-01-25 14:40 | DRG 368 ==
LOC: N.ICU 20:05 → SUATTDRO 20:05 → N.5E 01-04 17:15
PROVIDERS: ADMIT Internal Medicine; ATTEND Hospitalist

== ENCOUNTER 2019-05-10 17:15 | Inpatient (IN) ==
[2019-05-10] MEDS ORDERED: SODIUM CHLORIDE 0.9% 500 ML IV STA (18:24)
[2019-05-10] MEDS ORDERED: ONDANSETRON 4 MG/2 ML VIAL IV STA (18:24)
[2019-05-10 18:35] LABS: Basophils % 0.5 % (0.0-0.8); Eosinophils # 0.5 10*3/uL (0.0-0.87); Eosinophils % 5.4 % (0.00-10.9); Hematocrit 32.3 VOL% (42.0-52.0); Hemoglobin 9.6 GM/DL (14.0-18.0); Immature Granulocytes % 0.5 %; Immature Granulocytes Absolute 0.04 #; Lymphocytes # 1.3 10*3/uL (1.4-4.0); Lymphocytes % 14.7 % (21.2-54.2); Mean Corpuscular HGB Conc 29.7 GM/DL (32-36); Mean Corpuscular Volume 84.6 FL (87-102); Mean Platelet Volume 9.6 FL (9.6-12.0); Monocytes % 7.7 % (1.7-12.7); Neutrophils % 71.2 % (38.7-73.9); Platelet Count 205 T/CUMM (130-400); Red Blood Count 3.82 MC/CUMM (3.8-5.5); Red Cell Distribution Width 21.2 % (9.3-17.3); White Blood Count 8.8 T/CUMM (4-12)
[2019-05-10 18:46] LABS: Albumin 2.8 G/DL (3.4-5.0); Bilirubin,Total 0.4 MG/DL (0.2-1.0); Calcium 8.4 MG/DL (8.5-10.1); Osmolality,Calculated 283.7 MOS/KG (273-304); Total Protein 7.2 G/DL (6.4-8.3)
[2019-05-10] MEDS ORDERED: ONDANSETRON 4 MG/2 ML VIAL IV ONE (19:26)
[2019-05-10] MEDS ORDERED: MORPHINE 4 MG/1 ML VIAL IV STA (19:26)
[2019-05-10] MEDS ORDERED: POTASSIUM CHLORIDE 20 MEQ TABLET PO STA (20:06)
[2019-05-10] MEDS ORDERED: ACETAMINOPHEN 325 MG TABLET PO PRN (22:32)
[2019-05-10] MEDS ORDERED: ONDANSETRON 4 MG/2 ML VIAL IV PRN (22:32)
[2019-05-10] MEDS ORDERED: GLUCAGON 1 MG VIAL IM PRN (22:32)
[2019-05-10] MEDS ORDERED: DEXTROSE 50% 25 GM/50 ML SYRINGE IV PRN (22:32)
[2019-05-10] MEDS: PREGABALIN 50 MG CAPSULE PO SCH (22:54)
[2019-05-10] MEDS: DILTIAZEM 30 MG TABLET PO SCH (22:54)
[2019-05-10] MEDS: INSULIN REGULAR 100 UNIT/ML SUBCUT SCH (22:55)
[2019-05-10] MEDS: METOPROLOL TARTRATE 50 MG TABLET PO SCH (22:55)
[2019-05-10 23:22] LABS: Thyroid Stimulating Hormone 2.36 uIU/ml (0.358-3.74)
[2019-05-11] MEDS: INSULIN REGULAR 100 UNIT/ML SUBCUT SCH ×4 (09:28→20:59)
[2019-05-11] MEDS: LIDOCAINE 5% PATCH TRANSDERM SCH (09:29)
[2019-05-11] MEDS: DILTIAZEM 30 MG TABLET PO SCH ×4 (09:29→20:59)
[2019-05-11] MEDS: INSULIN ASPART PROTAMINE/ASPART 70/30 100 UNIT/ML SUBCUT SCH ×2 (09:29→18:32)
[2019-05-11] MEDS: METOPROLOL TARTRATE 50 MG TABLET PO SCH ×2 (09:30→20:59)
[2019-05-11] MEDS: PANTOPRAZOLE 40 MG TABLET PO SCH (09:30)
[2019-05-11] MEDS: PREGABALIN 50 MG CAPSULE PO SCH ×2 (09:30→20:59)
[2019-05-11] MEDS ORDERED: HEPARIN 10,000 UNIT/10 ML VIAL IV PRN (16:11)
[2019-05-12] MEDS: PREGABALIN 50 MG CAPSULE PO SCH ×2 (08:32→20:58)
[2019-05-12] MEDS: METOPROLOL TARTRATE 50 MG TABLET PO SCH ×2 (08:32→20:58)
[2019-05-12] MEDS: DILTIAZEM 30 MG TABLET PO SCH ×2 (08:32→12:40)
[2019-05-12] MEDS: PANTOPRAZOLE 40 MG TABLET PO SCH (08:33)
[2019-05-12] MEDS: LIDOCAINE 5% PATCH TRANSDERM SCH (08:33)
[2019-05-12] MEDS: INSULIN ASPART PROTAMINE/ASPART 70/30 100 UNIT/ML SUBCUT SCH ×2 (08:37→18:24)
[2019-05-12] MEDS: INSULIN REGULAR 100 UNIT/ML SUBCUT SCH ×4 (08:37→21:03)
[2019-05-13 04:58] LABS: Basophils % 0.4 % (0.0-0.8); Eosinophils # 0.7 10*3/uL (0.0-0.87); Eosinophils % 12.9 % (0.00-10.9); Hematocrit 31.7 VOL% (42.0-52.0); Hemoglobin 9.5 GM/DL (14.0-18.0); Immature Granulocytes % 0.6 %; Immature Granulocytes Absolute 0.03 #; Mean Corpuscular Volume 83.2 FL (87-102); Mean Platelet Volume 9.8 FL (9.6-12.0); Monocytes % 10.4 % (1.7-12.7); NRBC # 0.02 10*3/uL; Neutrophils % 56.7 % (38.7-73.9); Platelet Count 222 T/CUMM (130-400); Red Blood Count 3.81 MC/CUMM (3.8-5.5); Red Cell Distribution Width 20.2 % (9.3-17.3); White Blood Count 5.2 T/CUMM (4-12)
[2019-05-13 05:21] LABS: Calcium 8.1 MG/DL (8.5-10.1); Osmolality,Calculated 274.4 MOS/KG (273-304)
[2019-05-13 05:23] LABS: Eosinophils 14 % (0-10); Lymphocytes 20 % (20-55); Segmented Neutrophils 56 % (50-85); Total Cells Counted 100
[2019-05-13 05:24] LABS: Hypochromasia 1+; Platelet Estimate Adequate
[2019-05-13] MEDS ORDERED: ALBUMIN 5% 12.5 GM in PREMIX 1 EACH IV ONE (08:00)
[2019-05-13] MEDS: DILTIAZEM CD 120 MG CAPSULE PO SCH (08:21)
[2019-05-13] MEDS: INSULIN REGULAR 100 UNIT/ML SUBCUT SCH ×4 (08:21→21:07)
[2019-05-13] MEDS: LIDOCAINE 5% PATCH TRANSDERM SCH (08:21)
[2019-05-13] MEDS: INSULIN ASPART PROTAMINE/ASPART 70/30 100 UNIT/ML SUBCUT SCH ×2 (08:21→17:10)
[2019-05-13] MEDS: PANTOPRAZOLE 40 MG TABLET PO SCH (08:22)
[2019-05-13] MEDS: PREGABALIN 50 MG CAPSULE PO SCH ×2 (08:22→21:03)
[2019-05-13] MEDS: METOPROLOL TARTRATE 50 MG TABLET PO SCH ×2 (08:22→21:03)
[2019-05-13 09:14] LABS: INR 1.2; PT Patient Result 13.1 SECS (9.6-12.2)
[2019-05-13] MEDS ORDERED: TISSUE ADHESIVE 1 EACH APPLICATOR TOP ONE (10:40)
[2019-05-13 13:08] LABS: Neutrophils,Peritoneal Fluid 25 %
[2019-05-13 13:09] LABS: RBC,Peritoneal Fluid 1840 T/CUMM
[2019-05-14 05:36] LABS: Basophils % 0.8 % (0.0-0.8); Eosinophils # 0.5 10*3/uL (0.0-0.87); Eosinophils % 10.5 % (0.00-10.9); Hematocrit 31.8 VOL% (42.0-52.0); Hemoglobin 9.7 GM/DL (14.0-18.0); Immature Granulocytes % 0.6 %; Immature Granulocytes Absolute 0.03 #; Lymphocytes # 1.1 10*3/uL (1.4-4.0); Lymphocytes % 21.5 % (21.2-54.2); Mean Corpuscular HGB Conc 30.5 GM/DL (32-36); Mean Platelet Volume 9.7 FL (9.6-12.0); Monocytes % 10.5 % (1.7-12.7); Neutrophils % 56.1 % (38.7-73.9); Platelet Count 239 T/CUMM (130-400); Red Blood Count 3.88 MC/CUMM (3.8-5.5); Red Cell Distribution Width 19.9 % (9.3-17.3); White Blood Count 5.1 T/CUMM (4-12)
[2019-05-14 06:03] LABS: Calcium 8.2 MG/DL (8.5-10.1); Osmolality,Calculated 276.7 MOS/KG (273-304)
[2019-05-14] MEDS: DILTIAZEM CD 120 MG CAPSULE PO SCH (09:33)
[2019-05-14] MEDS: INSULIN ASPART PROTAMINE/ASPART 70/30 100 UNIT/ML SUBCUT SCH ×2 (09:33→18:39)
[2019-05-14] MEDS: PANTOPRAZOLE 40 MG TABLET PO SCH (09:33)
[2019-05-14] MEDS: INSULIN REGULAR 100 UNIT/ML SUBCUT SCH ×3 (09:33→18:38)
[2019-05-14] MEDS: PREGABALIN 50 MG CAPSULE PO SCH (09:33)
[2019-05-14] MEDS: METOPROLOL TARTRATE 50 MG TABLET PO SCH (09:33)
[2019-05-14] MEDS: LIDOCAINE 5% PATCH TRANSDERM SCH (09:33)
[2019-05-14 12:34] VITALS: BP 104/62
== END 2019-05-14 19:36 | disposition home health service (06) | DRG 308 ==
LOC: N.ED 17:15 → N.EDINP 19:54 → N.TELES 22:32
PROVIDERS: ADMIT Hospitalist; ATTEND Hospitalist

== ENCOUNTER 2019-07-18 11:29 | Inpatient (IN) ==
[2019-07-18] MEDS ORDERED: DILTIAZEM 50 MG/10 ML VIAL IV STA (11:59)
[2019-07-18] MEDS: dilTIAZem Drip 125 MG/125 ML PREMIX IV SCH ×2 (12:31→20:53)
[2019-07-18 12:34] LABS: Basophils % 0.3 % (0.0-0.8); Eosinophils # 0.1 10*3/uL (0.0-0.87); Eosinophils % 0.3 % (0.00-10.9); Hematocrit 39.6 VOL% (42.0-52.0); Hemoglobin 12.5 GM/DL (14.0-18.0); Immature Granulocytes % 0.6 %; Immature Granulocytes Absolute 0.09 #; Lymphocytes # 0.6 10*3/uL (1.4-4.0); Lymphocytes % 4.1 % (21.2-54.2); Mean Corpuscular HGB Conc 31.6 GM/DL (32-36); Mean Corpuscular Volume 78.7 FL (87-102); Monocytes % 5.2 % (1.7-12.7); Neutrophils % 89.5 % (38.7-73.9); Platelet Count 313 T/CUMM (130-400); Red Blood Count 5.03 MC/CUMM (3.8-5.5); Red Cell Distribution Width 20.4 % (9.3-17.3); White Blood Count 15.5 T/CUMM (4-12)
[2019-07-18 12:50] LABS: Albumin 2.5 G/DL (3.4-5.0); Bilirubin,Total 0.9 MG/DL (0.2-1.0); Calcium 9.2 MG/DL (8.5-10.1); Osmolality,Calculated 298.7 MOS/KG (273-304); Total Protein 8.2 G/DL (6.4-8.3)
[2019-07-18 12:52] LABS: Band Neutrophils 1 % (0-10); Eosinophils 1 % (0-10); Lymphocytes 6 % (20-55); Platelet Estimate Normal; Segmented Neutrophils 83 % (50-85); Total Cells Counted 100
[2019-07-18 12:53] LABS: Anisocytosis 1+; Burr Cells 1+; Macrocytosis 1+
[2019-07-18 12:59] LABS: Ferritin 626.5 ng/ml (26-388); INR 1.4; PT Patient Result 15.1 SECS (9.8-11.9)
[2019-07-18] MEDS ORDERED: cefTRIAXone 1,000 MG in SODIUM CHLORIDE 0.9% 100 ML IV STA (13:13)
[2019-07-18] MEDS ORDERED: AZITHROMYCIN INJ 500 MG in SODIUM CHLORIDE 0.9% 250 ML IV STA (13:14)
[2019-07-18] MEDS ORDERED: VANCOMYCIN INJ 1,000 MG in SODIUM CHLORIDE 0.9% 250 ML IV ONE (15:11)
[2019-07-18] MEDS ORDERED: ONDANSETRON 4 MG/2 ML VIAL IV PRN (15:28)
[2019-07-18] MEDS ORDERED: ALBUTEROL/IPRATROPIUM 3 ML NEB RESP TX PRN (15:28)
[2019-07-18] MEDS ORDERED: ACETAMINOPHEN 325 MG TABLET PO PRN (15:28)
[2019-07-18] MEDS ORDERED: GLUCAGON 1 MG VIAL IM PRN (15:28)
[2019-07-18] MEDS ORDERED: DEXTROSE 10% 250 ML BAG IV PRN (15:28)
[2019-07-18] MEDS ORDERED: SODIUM CHLORIDE 0.9% 250 ML IV ONE (15:35)
[2019-07-18] MEDS ORDERED: DIGOXIN 0.5 MG/2 ML AMP ONE (15:57)
[2019-07-18 16:04] LABS: Thyroid Stimulating Hormone 1.83 uIU/ml (0.358-3.74)
[2019-07-18] MEDS: DIGOXIN 0.5 MG/2 ML AMP IV SCH ×2 (16:30→23:05)
[2019-07-18] MEDS ORDERED: LIDOCAINE 1% 20 ML VIAL MISC INJ ONE (18:01)
[2019-07-18] MEDS ORDERED: ALBUMIN 25% 25 GM in PREMIX 1 EACH IV PRN (18:13)
[2019-07-18] MEDS: INSULIN REGULAR 100 UNIT/ML SUBCUT SCH ×2 (18:14→23:30)
[2019-07-18] MEDS: MORPHINE 4 MG/1 ML VIAL IV PRN ×2 (18:15→23:30)
[2019-07-18] MEDS ORDERED: MORPHINE 4 MG/1 ML VIAL IV PRN (18:17)
[2019-07-18] MEDS ORDERED: GENTAMICIN INJ 120 MG in PREMIX 1 EACH IV ONE (21:00)
[2019-07-18] MEDS ORDERED: VANCOMYCIN INJ 500 MG in SODIUM CHLORIDE 0.9% 100 ML IV ONE (21:00)
[2019-07-18 21:04] LABS: Lymphocytes,Synovial Fluid 2 %; Neutrophils,Synovial Fluid 97 %
[2019-07-19 05:33] LABS: Basophils # 0.1 10*3/uL (0.0-0.2); Basophils % 0.3 % (0.0-0.8); Eosinophils # 0.2 10*3/uL (0.0-0.87); Hematocrit 35.2 VOL% (42.0-52.0); Hemoglobin 11.2 GM/DL (14.0-18.0); Immature Granulocytes % 0.6 %; Lymphocytes # 1.3 10*3/uL (1.4-4.0); Lymphocytes % 8.4 % (21.2-54.2); Mean Corpuscular HGB Conc 31.8 GM/DL (32-36); Mean Corpuscular Volume 79.1 FL (87-102); Mean Platelet Volume 10.1 FL (9.6-12.0); Monocytes % 9.7 % (1.7-12.7); Platelet Count 287 T/CUMM (130-400); Red Blood Count 4.45 MC/CUMM (3.8-5.5); Red Cell Distribution Width 19.9 % (9.3-17.3); White Blood Count 15.5 T/CUMM (4-12)
[2019-07-19 06:13] LABS: Albumin 2.6 G/DL (3.4-5.0); Bilirubin,Total 1.1 MG/DL (0.2-1.0); Osmolality,Calculated 281.5 MOS/KG (273-304); Risk Ratio 3.54; Total Protein 7.7 G/DL (6.4-8.3); VLDL CHOLESTEROL 27.4 MG/DL
[2019-07-19] MEDS ORDERED: DIGOXIN 0.5 MG/2 ML AMP IV ONE (08:47)
[2019-07-19] MEDS ORDERED: AMIODARONE INJ 150 MG in DEXTROSE 5% 100 ML IV ONE (09:00)
[2019-07-19] MEDS ORDERED: AMIODARONE INJ 450 MG in DEXTROSE 5% 241 ML IV SCH (09:00)
[2019-07-19] MEDS ORDERED: SUGAMMADEX 200 MG/2 ML VIAL IV ONE (09:20)
[2019-07-19] MEDS: INSULIN REGULAR 100 UNIT/ML SUBCUT SCH ×4 (10:07→21:01)
[2019-07-19] MEDS ORDERED: LIDOCAINE 2% 5 ML VIAL ONE (11:01)
[2019-07-19] MEDS ORDERED: fentaNYL 100 MCG/2 ML VIAL ONE ×2 (11:02→11:04)
[2019-07-19] MEDS ORDERED: ROCURONIUM 100 MG/10 ML VIAL IV ONE (11:02)
[2019-07-19] MEDS ORDERED: PHENYLEPHRINE 1 MG/10 ML SYRINGE IV ONE ×2 (11:02→11:06)
[2019-07-19] MEDS ORDERED: ETOMIDATE 40 MG/20 ML VIAL IV ONE (11:02)
[2019-07-19] MEDS ORDERED: MIDAZOLAM 2 MG/2 ML VIAL ONE (11:02)
[2019-07-19] MEDS ORDERED: BUPIVACAINE MPF 0.5% /EPI 30 ML VIAL ONE (11:42)
[2019-07-19] MEDS ORDERED: MAGNESIUM HYDROXIDE SUSP 30 ML UDCUP PO PRN (11:59)
[2019-07-19] MEDS: cefTRIAXone 1,000 MG in SYRINGE 1 EACH IV SCH (12:45)
[2019-07-19] MEDS: DIGOXIN 0.125 MG TABLET PO SCH (12:45)
[2019-07-19] MEDS: PANTOPRAZOLE 40 MG TABLET PO SCH (12:45)
[2019-07-19] MEDS: AMIODARONE INJ 450 MG in DEXTROSE 5% 241 ML IV SCH (23:25)
[2019-07-20] MEDS: PANTOPRAZOLE 40 MG TABLET PO SCH (10:36)
[2019-07-20] MEDS: ASPIRIN EC 325 MG TABLET PO SCH (10:38)
[2019-07-20] MEDS: INSULIN REGULAR 100 UNIT/ML SUBCUT SCH ×4 (10:39→20:59)
[2019-07-20 10:48] LABS: Basophils # 0.1 10*3/uL (0.0-0.2); Basophils % 0.4 % (0.0-0.8); Eosinophils # 0.2 10*3/uL (0.0-0.87); Eosinophils % 1.9 % (0.00-10.9); Hematocrit 36.1 VOL% (42.0-52.0); Hemoglobin 11.2 GM/DL (14.0-18.0); Immature Granulocytes % 0.6 %; Immature Granulocytes Absolute 0.07 #; Lymphocytes # 0.8 10*3/uL (1.4-4.0); Lymphocytes % 6.4 % (21.2-54.2); Mean Corpuscular Volume 78.8 FL (87-102); Mean Platelet Volume 9.8 FL (9.6-12.0); Monocytes % 8.2 % (1.7-12.7); Neutrophils % 82.5 % (38.7-73.9); Platelet Count 352 T/CUMM (130-400); Red Blood Count 4.58 MC/CUMM (3.8-5.5); Red Cell Distribution Width 19.9 % (9.3-17.3); White Blood Count 11.9 T/CUMM (4-12)
[2019-07-20 11:05] LABS: Calcium 9.1 MG/DL (8.5-10.1); Osmolality,Calculated 276.8 MOS/KG (273-304)
[2019-07-20 12:06] LABS: Ferritin 891.4 ng/ml (26-388)
[2019-07-20] MEDS: HEPARIN 5,000 UNIT/1 ML VIAL SUBCUT SCH (12:45)
[2019-07-20] MEDS: cefTRIAXone 1,000 MG in SYRINGE 1 EACH IV SCH (12:45)
[2019-07-20] MEDS: AMIODARONE INJ 450 MG in DEXTROSE 5% 241 ML IV SCH ×3 (12:46→21:05)
[2019-07-20] MEDS ORDERED: ENOXAPARIN 30 MG/0.3 ML SYRINGE SUBCUT SCH (21:00)
[2019-07-21] MEDS: HEPARIN 5,000 UNIT/1 ML VIAL SUBCUT SCH ×2 (00:25→13:11)
[2019-07-21 03:56] LABS: Basophils % 0.4 % (0.0-0.8); Eosinophils # 0.2 10*3/uL (0.0-0.87); Eosinophils % 1.9 % (0.00-10.9); Hematocrit 34.1 VOL% (42.0-52.0); Hemoglobin 10.7 GM/DL (14.0-18.0); Lymphocytes % 10.5 % (21.2-54.2); Mean Corpuscular HGB Conc 31.4 GM/DL (32-36); Mean Corpuscular Volume 78.4 FL (87-102); Mean Platelet Volume 10.2 FL (9.6-12.0); Neutrophils % 74.2 % (38.7-73.9); Platelet Count 354 T/CUMM (130-400); Red Blood Count 4.35 MC/CUMM (3.8-5.5); Red Cell Distribution Width 19.8 % (9.3-17.3); White Blood Count 9.8 T/CUMM (4-12)
[2019-07-21 04:11] LABS: Bilirubin,Total 0.7 MG/DL (0.2-1.0); Calcium 8.7 MG/DL (8.5-10.1); Osmolality,Calculated 276.1 MOS/KG (273-304); Total Protein 7.3 G/DL (6.4-8.3)
[2019-07-21] MEDS: ASPIRIN EC 325 MG TABLET PO SCH (08:20)
[2019-07-21] MEDS: DIGOXIN 0.125 MG TABLET PO SCH (08:20)
[2019-07-21] MEDS: AMIODARONE 200 MG TABLET PO SCH (08:20)
[2019-07-21] MEDS: PANTOPRAZOLE 40 MG TABLET PO SCH (08:20)
[2019-07-21] MEDS: INSULIN REGULAR 100 UNIT/ML SUBCUT SCH ×4 (08:31→22:47)
[2019-07-21] MEDS ORDERED: VANCOMYCIN INJ 1,750 MG in SODIUM CHLORIDE 0.9% 500 ML IV PRN (10:15)
[2019-07-21] MEDS ORDERED: VANCOMYCIN IV PRN (10:30)
[2019-07-21] MEDS ORDERED: SODIUM CHLORIDE 0.9% IV PRN (10:30)
[2019-07-21] MEDS ORDERED: VANCOMYCIN INJ 2,000 MG in SODIUM CHLORIDE 0.9% 500 ML IV ONE (12:00)
[2019-07-21] MEDS: LACTULOSE 20 GM/30 ML UDCUP PO SCH ×2 (13:12→17:14)
[2019-07-21] MEDS: DILTIAZEM 30 MG TABLET PO SCH ×3 (13:26→22:35)
[2019-07-21] MEDS: cefTRIAXone 1,000 MG in SYRINGE 1 EACH IV SCH (13:27)
[2019-07-22] MEDS: LACTULOSE 20 GM/30 ML UDCUP PO SCH ×4 (00:33→16:58)
[2019-07-22] MEDS: HEPARIN 5,000 UNIT/1 ML VIAL SUBCUT SCH ×2 (00:33→15:25)
[2019-07-22 06:28] LABS: Basophils % 0.3 % (0.0-0.8); Eosinophils # 0.1 10*3/uL (0.0-0.87); Eosinophils % 0.8 % (0.00-10.9); Hematocrit 34.6 VOL% (42.0-52.0); Hemoglobin 11.2 GM/DL (14.0-18.0); Immature Granulocytes % 1.2 %; Immature Granulocytes Absolute 0.13 #; Lymphocytes # 1.1 10*3/uL (1.4-4.0); Lymphocytes % 10.4 % (21.2-54.2); Mean Corpuscular HGB Conc 32.4 GM/DL (32-36); Mean Corpuscular Volume 75.9 FL (87-102); Mean Platelet Volume 10.6 FL (9.6-12.0); Monocytes % 11.8 % (1.7-12.7); Neutrophils % 75.5 % (38.7-73.9); Platelet Count 389 T/CUMM (130-400); Red Blood Count 4.56 MC/CUMM (3.8-5.5); White Blood Count 10.8 T/CUMM (4-12)
[2019-07-22 07:36] LABS: Calcium 8.9 MG/DL (8.5-10.1); Osmolality,Calculated 284.1 MOS/KG (273-304)
[2019-07-22] MEDS: INSULIN REGULAR 100 UNIT/ML SUBCUT SCH ×4 (09:42→21:10)
[2019-07-22] MEDS: ASPIRIN EC 325 MG TABLET PO SCH (09:43)
[2019-07-22] MEDS: DILTIAZEM 30 MG TABLET PO SCH ×4 (09:43→23:20)
[2019-07-22] MEDS: AMIODARONE 200 MG TABLET PO SCH (09:45)
[2019-07-22] MEDS: PANTOPRAZOLE 40 MG TABLET PO SCH (09:46)
[2019-07-22] MEDS ORDERED: LIDOCAINE 1%/EPI INJ 20 ML VIAL ONE (13:41)
[2019-07-22] MEDS: METOPROLOL TARTRATE 25 MG TABLET PO SCH ×2 (14:06→21:10)
[2019-07-22] MEDS: cefTRIAXone 1,000 MG in SYRINGE 1 EACH IV SCH (14:19)
[2019-07-22] MEDS ORDERED: SODIUM CHLORIDE 0.9% IV ONE (21:00)
[2019-07-22] MEDS ORDERED: VANCOMYCIN IV ONE (21:00)
[2019-07-23] MEDS: HEPARIN 5,000 UNIT/1 ML VIAL SUBCUT SCH ×3 (01:00→21:39)
[2019-07-23] MEDS: LACTULOSE 20 GM/30 ML UDCUP PO SCH ×2 (01:05→05:30)
[2019-07-23] MEDS ORDERED: LACTULOSE 20 GM/30 ML UDCUP PO PRN (05:32)
[2019-07-23 06:41] LABS: Basophils # 0.1 10*3/uL (0.0-0.2); Basophils % 0.5 % (0.0-0.8); Eosinophils # 0.2 10*3/uL (0.0-0.87); Eosinophils % 1.6 % (0.00-10.9); Hematocrit 38.6 VOL% (42.0-52.0); Hemoglobin 11.9 GM/DL (14.0-18.0); Immature Granulocytes % 1.6 %; Immature Granulocytes Absolute 0.18 #; Lymphocytes % 9.1 % (21.2-54.2); Mean Corpuscular HGB Conc 30.8 GM/DL (32-36); Mean Corpuscular Volume 79.1 FL (87-102); Mean Platelet Volume 9.8 FL (9.6-12.0); Monocytes % 11.4 % (1.7-12.7); Neutrophils % 75.8 % (38.7-73.9); Platelet Count 406 T/CUMM (130-400); Red Blood Count 4.88 MC/CUMM (3.8-5.5); Red Cell Distribution Width 20.3 % (9.3-17.3); White Blood Count 10.9 T/CUMM (4-12)
[2019-07-23 07:26] LABS: Calcium 8.9 MG/DL (8.5-10.1); Osmolality,Calculated 279.8 MOS/KG (273-304)
[2019-07-23] MEDS: INSULIN REGULAR 100 UNIT/ML SUBCUT SCH ×4 (09:02→21:18)
[2019-07-23] MEDS: DIGOXIN 0.125 MG TABLET PO SCH (09:03)
[2019-07-23] MEDS: AMIODARONE 200 MG TABLET PO SCH ×2 (09:03→21:39)
[2019-07-23] MEDS: DILTIAZEM 30 MG TABLET PO SCH ×4 (09:04→21:39)
[2019-07-23] MEDS: ASPIRIN EC 325 MG TABLET PO SCH (09:04)
[2019-07-23] MEDS: METOPROLOL TARTRATE 25 MG TABLET PO SCH ×2 (09:04→21:39)
[2019-07-23] MEDS: PANTOPRAZOLE 40 MG TABLET PO SCH (09:04)
[2019-07-23] MEDS ORDERED: GENTAMICIN INJ 100 MG in PREMIX 1 EACH IV PRN (13:13)
[2019-07-23] MEDS: cefTRIAXone 1,000 MG in SYRINGE 1 EACH IV SCH (14:22)
[2019-07-23] MEDS ORDERED: GENTAMICIN INJ 100 MG in PREMIX 1 EACH IV ONE (15:00)
[2019-07-24] MEDS: HEPARIN 5,000 UNIT/1 ML VIAL SUBCUT SCH ×2 (01:30→09:11)
[2019-07-24 06:46] LABS: Basophils % 0.4 % (0.0-0.8); Eosinophils # 0.2 10*3/uL (0.0-0.87); Eosinophils % 1.7 % (0.00-10.9); Hematocrit 36.6 VOL% (42.0-52.0); Hemoglobin 11.5 GM/DL (14.0-18.0); Immature Granulocytes % 2.2 %; Lymphocytes # 0.9 10*3/uL (1.4-4.0); Lymphocytes % 10.4 % (21.2-54.2); Mean Corpuscular HGB Conc 31.4 GM/DL (32-36); Mean Corpuscular Volume 77.4 FL (87-102); Monocytes % 11.6 % (1.7-12.7); Neutrophils % 73.7 % (38.7-73.9); Platelet Count 424 T/CUMM (130-400); Red Blood Count 4.73 MC/CUMM (3.8-5.5); Red Cell Distribution Width 20.3 % (9.3-17.3); White Blood Count 9.1 T/CUMM (4-12)
[2019-07-24 07:00] LABS: Burr Cells Slight; Ovalocytes Slight; Platelet Estimate Adequate
[2019-07-24 07:01] LABS: Calcium 8.8 MG/DL (8.5-10.1); Osmolality,Calculated 287.7 MOS/KG (273-304)
[2019-07-24] MEDS: ASPIRIN EC 325 MG TABLET PO SCH (09:11)
[2019-07-24] MEDS: DILTIAZEM 30 MG TABLET PO SCH ×2 (09:12→13:32)
[2019-07-24] MEDS: METOPROLOL TARTRATE 25 MG TABLET PO SCH (09:12)
[2019-07-24] MEDS: AMIODARONE 200 MG TABLET PO SCH (09:12)
[2019-07-24] MEDS: PANTOPRAZOLE 40 MG TABLET PO SCH (09:12)
[2019-07-24] MEDS: INSULIN REGULAR 100 UNIT/ML SUBCUT SCH ×2 (09:12→13:33)
[2019-07-24] MEDS ORDERED: METOPROLOL TARTRATE 50 MG TABLET PO SCH ×2 (09:30→21:00)
[2019-07-24] MEDS ORDERED: METOPROLOL TARTRATE 25 MG TABLET PO ONE (10:30)
[2019-07-24 12:14] VITALS: BP 116/55
[2019-07-24] MEDS: cefTRIAXone 1,000 MG in SYRINGE 1 EACH IV SCH (13:33)
[2019-07-25] MEDS ORDERED: AMIODARONE 200 MG TABLET PO SCH (09:00)
== END 2019-07-24 15:37 | DRG 485 ==
LOC: EDUNIT# → EDBD → N.ED 11:29 → SUATTDRO 13:56 → N.CC 13:56 → N.2E 07-21 20:26 → N.TELES 07-23 18:41 → N.TELEN 07-23 18:42
PROVIDERS: ADMIT Internal Medicine; ATTEND Internal Medicine